=== PATIENT | male | born 1965 | race Caucasian/White ===

== ENCOUNTER 2025-03-23 12:49 | Emergency (ER) | payer OTHER, SELFPAY ==
--- NOTE | ~2025-03-23 | US_ITS ---
EXAMINATION: US venous doppler [facility] DATE: 03/23/2025 13:59 INDICATION: Left upper limb swelling at the hand TECHNIQUE: Grayscale images without and with compression and Doppler images of the left upper extremi ty veins were obtained. COMPARISON: None. FINDINGS: The left internal jugular vein, subclavian vein, axillary vein, brachial vein, basilic vein, cephalic vein, radial vein, and ulnar vein are patent. IMPRESSION: 1. Patent left upper extremity veins. No evidence of venous thrombosis. Reviewed, dictated and finalized at location A.
[2025-03-23 12:56] VITALS: BP 129/90; PULSE 93; RESP 18; TEMP 36.5; O2SAT 98
--- NOTE | 2025-03-23 13:25 | ED_ITS ---
HPI - Extremity Problem General Chief complaint: Extremity Problem,Nontraumatic Stated complaint: left hand swelling Time Seen by Provider: 03/23/25 12:56 History of Present Illness HPI Narrative: 59-year-old male presents to the emergency department for evaluation for left hand swelling. Patient does have some mild left hand urine edema and swelling of the left hand with no swelling of the remainder of the left upper extremity. Patient denies any falls or injuries. Patient does have 2 scrapes to the left hand. Patient states that he does take blood thinners for previous coronary artery disease but did not take few days for the past 2 days. Patient denies any prior history of DVT. Related Data Allergies Allergy/AdvReac Type Severity Reaction Status Date / Time No Known Allergies Allergy Verified 03/23/25 14:20 Review of Systems Review of Systems: All systems reviewed & are unremarkable except as noted in HPI and below Exam Narrative: APPEARANCE: Well appearing, no pain, no distress, well-nourished. HEAD: normocephalic, atraumatic. EYES: PERRLA/EOMI, conjunctivae clear. NOSE: Normal no drainage EARS:TMS clear with good light reflex. THROAT: Pharynx clear, no exudate. NECK: Supple. No adenopathy, no masses. RESPIRATORY: Airway patent, respirations nonlabored. Clear to auscultation bilaterally, no rales, rhonchi, wheezing. CARDIOVASCULAR: Regular rate and rhythm without murmurs rubs or gallops. ABDOMINAL: Soft, nontender, nondistended, normal bowel sounds MUSCULOSKELETAL: Left hand erythema and mild edema NEURO: Alert. Cranial nerves II through XII intact. Good gait. Good coordination SKIN: Warm, dry. Normal Color Course Vital Signs Vital signs: Vital Signs Temperature 97.7 F 03/23/25 12:56 Pulse Rate 93 03/23/25 12:56 Respiratory Rate 18 03/23/25 12:56 Blood Pressure 129/90 03/23/25 12:56 Pulse Oximetry 98 03/23/25 12:56 Oxygen Delivery Room Air 03/23/25 12:56 Temperature 97.7 F 03/23/25 12:56 Pulse Rate 83 03/23/25 14:30 Respiratory Rate 19 03/23/25 14:30 Blood Pressure 118/81 03/23/25 14:30 Pulse Oximetry 97 03/23/25 14:30 Oxygen Delivery Room Air 03/23/25 12:56 MDM - Extremity (Nontraumatic) MDM Narrative Medical decision making narrative: 59-year-old male presents emergency department for evaluation for left hand swelling. Ultrasound was negative for DVT. Patient does have some areas of skin injury and does have some mild erythema of the left hand, concern for possible cellulitis. Patient was started on antibiotics in the emergency department. All questions concerns were addressed patient was well-appearing at time of discharge. Differential Diagnosis Differential diagnosis: Likely cellulitis, superficial thrombophlebitis, deep vein thrombosis of lower extremity and other Imaging Data Radiologist's impression: Impressions Venous Doppler Study 03/23/25 14:03 IMPRESSION: 1. Patent left upper extremity veins. No evidence of venous thrombosis. Discharge Plan Discharge Clinical Impression: Cellulitis, Hand edema Patient Disposition: Home Condition: Stable Instructions: Antibiotic Form, Cellulitis (ED) Additional Instructions: Antibiotic as directed until completed. Have close follow-up with your primary care physician for a wound check. If you have any worsening symptoms and please call or return to the emergency department. Patient Language: South Korean Prescriptions: New cephalexin 500 mg capsule 500 mg PO Q12H 7 Days Qty: 14 0RF Follow-up/Referrals: UNKNOWN,DOCTOR [Primary Care Provider] -
--- OUTSIDE RECORDS SUMMARY | 2025-03-23 13:31 | XMS_ITS | Continuity of Care Document ---
Author Organization [facility] Address [address] [place] [address] Phone Care Team Providers Care Superintendent Custodian Janitor Name Role Phone Martin Davies MD Unavailable Unavailable Advance Directives Directive Yes / No Effective Date File Name No Information Encounters Encounter Description Practice Location Reason(s) For Visit Diagnoses Date Provider Providers Copied on Encounter [facility], [address], [place], [place], [id number], tel:[phone] [facility] No Information Keke Salazar. [address] [place] [address], [id number], . tel:[phone] Family History Family Member Type Diagnosis Age At Onset No Information Payers Payer name Insurance type Covered republican ID Authoriza tion(s) No Information Social History Type Description Quantity Date Captured Comments Sex Male Smoking Status No Information Chief Complaint And Reason For Visit No Information Reason For Referral Reason For Referral No Information History Of Present Illness Encounter Date Complaint History Of Prese nt Illness No Information Functional Status Date Functional Assessmen t No Information Instructions Date Instruction Additional Infor mation No Information Assessments Type Assessment Date No Information Patient Care Teams Name Effective Dates (start - stop) Status Members No Information
--- OUTSIDE RECORDS SUMMARY | 2025-03-23 13:32 | XMS_ITS | CONTINUITY OF CARE DOCUMENT ---
Author Name shadia reno Address Unknown Organization [facility] Address [address] [place] [address] Phone [phone] Care Team Providers Care Credit Representative Name Role Phone Vance Méndez MD Unavailable [phone] JEANETTE MCNEILL MD Unavailable [phone] JEANETTE MCNEILL MD Unavailable [phone] PROBLEMS Condition Status Date Provider Notes Tobacco use, quit active Josh Randle Fatigue active Josh Randle CHF active Josh Randle Insomnia active Vance Méndez MD Shortness of breath active Vance Méndez MD Dyslipidemia active Vance Méndez MD Cardiomyopathy active Vance Méndez MD Diabetes mellitus active Vance Méndez MD STEMI 08/2020 active Vance Méndez MD CAD S/P LCX/OM2 STENTS 08/2020 active Jennifer nder Jer HTN active Vance Méndez MD ENCOUNTERS Date Type Provider Location Encounter Diag nosis - In-person encounter Office Visit Timur Salcido MD [facility] Office - In-person encounter Office Visit Vance Méndez MD [facility] HTNCAD S/P LCX/OM2 STENTS 08/2020STEMI 08/2020Diabetes mellitusCardiomyopathyDyslipidemiaShortness of breathInsomniaCHFFatigueTobacco use, quit VITAL SIGNS Date Observation Value Provider Body Mass Index (Ratio) 21.29 kg/m2 Ustx n Loly MD blood pressure, diastolic 70 mm[Hg] Luis Dickersonford blood pressure, systolic 122 mm[Hg] Soheila Real respiratory rate E&M 18 /min Daniel Real blood pressure, resting Yes Alberto Real oxygen saturation, oximetry 98 % Aminta Real pulse rate 70 /min Aminta dobbins weight E&M 157 [lb_av] Aminta dobbins height E&M 72 [in_i] Aminta dobbins Body Mass Index (Ratio) 22.10 kg/m2 Erickson vázquez [facility] blood pressure, resting Yes Erickson gurpreet [facility] blood pressure, cuff size large Ke rri [facility] blood pressure, diastolic 70 mm[Hg] Ke rri Gruenenfelder blood pressure, systolic 110 mm[Hg] Gabino jose daniel Rodriguez oxygen saturation, oximetry 98 % Morena Rodriguez respiratory rate E&M 16 /min Morena cuevas pulse rate 97 /min Morena Austin er weight E&M 163 [lb_av] Morena Maria Me er height E&M 72 [in_i] Morena Grclaudettenenfe lder ALLERGIES No Known Drug Allergies RESULTS Date Observation Value Provider Reference Range Interpretation Location 5 hemoglobin A1C, blood, as % of total hemoglobin 9.5 % [facility] 5 LDL cholesterol, serum 52 mg/dL [facility] 6 eGFR if 87 mL/min/{1. 73_m2} [facility] >59 6 eGFR if not 75 mL/min/{1. 73_m2} [facility] >59 2020/11/2 6 creatinine, serum 1.11 mg/dL [facility] 0.76-1.27 HISTORY OF MEDICATION USE Medication Status Instructions Dates Provider Indications Com ments aspirin 81 mg tablet,delayed release (/EC) active TAKE 1 TABLET BY MOUTH EVERY DAY Denise Alexei clopidogrel 75 mg tablet active TAKE 1 TABLET BY MOUTH EVERY DAY Denise Linda carvedilol 3.125 mg tablet active TAKE 1 TABLET BY MOUTH EVERY DAY Denise Linda METOPROLOL TARTRATE 100 MG ORAL TABLET completed one tab the morning of the CT heart at 10:30AM on 09/27/20. Hold your Carvedilol evening of 09/26 & AM of 09/27/20 - Aminta Real LASIX 40 MG ORAL TABLET completed One tablet daily - Josh Randle ALDACTONE 25 MG ORAL TABLET completed ONE TAB. DAILY - Josh Randle FARXIGA 10 MG ORAL TABLET completed One tab by mouth daily - Josh [facility] Ambien 5 mg tablet active 1 tablet every night Jasson Styles lisinopril 2.5 mg tablet active 1 tablet once a day Morena Rodriguez Plavix 75 mg tablet completed 1 tablet once a day - Morena Rodriguez Coreg 3.125 mg tablet completed Take 1 once a day - Morena Rodriguez Lipitor 80 mg tablet active 1 tablet once a day Morena Rodriguez ASPIRIN 81 81 MG ORAL TABLET DELAYED RELEASE active 1 tablet by mouth once a day Morena Rodriguez Victoza 2-Darvin 0.6 mg/0.1 mL (18 mg/3 mL) pen injector active Inject 1.2 mg subcutaneously once a day Morena Rodriguez SOCIAL HISTORY Date Observation Value Provider social history E&M S moking History: Slim diamond is a former smoker. 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 [facility] social history reviewed E&M revi ewed - no changes required [facility] number of years as a smoker 30 a Morena Rodriguez smoking history, tot al pack/day 1.5 [facility] smoking, year quit 2012 Morena glover cigarette use yes Morena velazquez smoking status Former smoker Morena Stephan gutierrez FUNCTIONAL STATUS Date Observation Value Provider HRA, CV Assess/Plan, Angina (inactive) Management Plan continue current therapy Mansi Adames NP HRA, CV Assess/Plan, Angina (inactive) Management Plan continue current therapy [facility] FAMILY HISTORY Family Member Condition Mother Family History of Co ronary Artery Disease: Mother Family History of Hy pertension: Mother Family History of Hy perlipidemia: Mother Family History of Di abetes: Father Family History of Co ronary Artery Disease: Father Family History of Hy pertension: Father Family History of Hy perlipidemia: Father Family History of Di abetes: INSURANCE PROVIDERS Payer name Policy type / Coverage type [id number] ADVANCE DIRECTIVES Name Date DISCUSSED - NO DECISION MADE TREATMENT PLAN Date Name [facility] Follow up:At times he complains of feeling that he cannot breathe well and we will schedule PFT's. [facility] Follow up:He reports waking up at night and having difficult falling back asleep. We will obtain a home sleep study and he will try Ambien. [facility] Follow up:Pt had a STEMI in the beginning of August with stenting of the LCX and OM2 at [facility]. EF was 35%. We were not able to cannulate the RCA. Today he complains mainly of fatigue and tiredness. He was discharged from [facility] on Lasix, Spironolactone and Farxiga (due to elevated proBNP of 2854 at [facility]). BP today is 110/70 and we will discontinue Lasix, Spironolactone and Farxiga and continue his Lisinopril, Coreg and Victoza. We will obtain an echo to assess his EF. The following medications were removed from the medication list: Lasix 40 Mg Oral Tablet (Furosemide) ..... One tablet daily Aldactone 25 Mg Oral Tablet (Spironolactone) ..... One tab. daily His updated medication list for this problem includes: Lisinopril 2.5 Mg Oral Tablet (Lisinopril) ..... One tab. daily Coreg 3.125 Mg Oral Tablet (Carvedilol) ..... Take one pill a day [facility] Follow up:HgA1c: 9.5 (08/25/2020) The following medications were removed from the medication list: Farxiga 10 Mg Oral Tablet (Dapagliflozin propanediol) ..... One tab by mouth daily His updated medication list for this problem includes: Lisinopril 2.5 Mg Oral Tablet (Lisinopril) ..... One tab. daily Aspirin 81 81 Mg Oral Tablet Delayed Release (Aspirin) ..... One tab by mouth daily Victoza 18 Mg/3ml Subcutaneous Solution Pen-injector (Liraglutide) ..... Inject 1.2mg subcutaneously daily [facility] Follow up:Pt had a STEMI in the beginning of August with stenting of the LCX and OM2 at [facility]. EF was 35%. We were not able to cannulate the RCA. He continued to have chest pain and thus was transferred to [facility] for CT coronary angio, however CT chest/abdo with contrast was done instead. Today he complains mainly of fatigue and tiredness. Denies chest pain. He was discharged from [facility] on Lasix, Spironolactone and Farxiga (due to elevated proBNP of 2854 at [facility]). BP today is 110/70 and we will discontinue Lasix, Spironolactone and Farxiga and continue his Lisinopril, Coreg and Victoza. We will reschedule his CT coronary angiography to assess his RCA. We will obtain an echo to assess his EF. [facility] Follow up:LDL: 52 (08/25/2020) HDL: 28 (08/25/2020) TRI (08/25/2020) CHOL: 105 (08/25/2020) His updated medication list for this problem includes: Lipitor 80 Mg Oral Tablet (Atorvastatin calcium) ..... One tab. daily [facility] Follow up:He was discharged from [facility] on Lasix, Spironolactone and Farxiga (due to elevated proBNP of 2854 at [facility]). BP today is 110/70 and we will discontinue Lasix, Spironolactone and Farxiga and continue his Lisinopril, Coreg and Victoza. BP today: 110/70 The following medications were removed from the medication list: Lasix 40 Mg Oral Tablet (Furosemide) ..... One tablet daily Aldactone 25 Mg Oral Tablet (Spironolactone) ..... One tab. daily His updated medication list for this problem includes: Lisinopril 2.5 Mg Oral Tablet (Lisinopril) ..... One tab. daily Coreg 3.125 Mg Oral Tablet (Carvedilol) ..... Take one pill a day [facility] Follow up:Pt had a STEMI in the beginning of August with stenting of the LCX and OM2 at [facility]. EF was 35%. We were not able to cannulate the RCA. Today he complains mainly of fatigue and tiredness. Denies chest pain. We will obtain an echo to assess his EF. [facility] Follow up:Pt had a STEMI in the beginning of August with stenting of the LCX and OM2 at [facility]. EF was 35%. We were not able to cannulate the RCA. He continued to have chest pain and thus was transferred to [facility] for CT coronary angio, however CT chest/abdo with contrast was done instead. To limit his contrast exposure, stress test and echo were done at [facility] instead of a second CT. Today he complains mainly of fatigue and tiredness. Denies chest pain. We will reschedule his CT coronary angiography to assess his RCA. His updated medication list for this problem includes: Lisinopril 2.5 Mg Oral Tablet (Lisinopril) ..... One tab. daily Plavix 75 Mg Oral Tablet (Clopidogrel bisulfate) ..... One tab. daily Coreg 3.125 Mg Oral Tablet (Carvedilol) ..... Take one pill a day Aspirin 81 81 Mg Oral Tablet Delayed Release (Aspirin) ..... One tab by mouth daily Josh Randle Date Name Complete Echo Complete Echo Creatinine, Serum CT Angio Coronaries DLCO - 86397 FRC - 23631 FVC - 96044 Sleep Study Home Complete Echo HISTORY OF PROCEDURES Procedure Date Procedure Name Provider Procedure Notes S tatus FVC / MVV with [facility] hodilator - 84593 Vance Méndez MD completed BLOOD COUNT HEMOGLOBIN Vance Méndez MD completed FRC - 72402 Vance Méndez MD completed SpO2 w/o 6min walk/titration Vance Méndez MD completed DLCO - 78294 Vance éMndez MD complete d EKG Vance Méndez MD completed
--- OUTSIDE RECORDS SUMMARY | 2025-03-23 13:32 | XMS_ITS | Patient Health Record ---
Author Organization [facility] Address [address] [place] [id number] Care Team Providers Care Sleeping Car Service Attendant Name Role Phone JEANETTE MCNEILL Primary Care Provider Allergies No Known Allergies Reason For Referral No Information Medications Medication SIG (Take, Route, Frequency, Duration) Notes Start Date End Date Status Atorvastatin Calcium 20 MG 1 tablet every evening Orally Once a day for 90 days Active Tresiba FlexTouch 100 UNIT/ML inject 25 units Subcutaneous once a day for 90 days 06/12/2022 Active Clopidogrel Bisulfate 75 MG 1 tablet Orally Once a day Active Carvedilol 3.125 MG 1 tablet with food O rally Twice a day Active OneTouch Delica Lancets Fine use one lancet in vitro once a day for 100 days 06/06/2022 Active OneTouch Delica Plus [id number] - TESTS TWICE DAILY for 30 Act nagi metFORMIN HCl 500 MG 1 tablet with meals Orally Twice a day for 90 days 05/18/2021 Active Lisinopril 10 MG 1 tablet Orally Once a day for 90 days Active Aspirin EC 81 MG 1 tablet Orally Once a day Active OneTouch Ultra Test 1 In Vitro daily for 90 days 12/20/2017 Active BD Pen Needle Micro U/F 32G X 6 MM use 1 every day subcutaneously for 90 days Active OneTouch Ultra 2 w/Device as directed 12/20/2017 Not-Taking Immunizations Vaccine Route Administration Date Status Comme nts Influenza (split), 3 yrs and above IM Intramuscular 08/11/2015 Administered Pneumococcal polysaccharide PPV23 IM Intramuscular 08/11/2015 Administered Social History Tobacco use other than smoking: Question Answer Notes Are you an other tobacco user? No Problems Problem Type SNOMED Code ICD Code Onset Dates Problem Status W/U Status Risk Notes Problem Presbyopia (94700024) Presbyopia (H52.4) Active confirmed Problem Essential hypertension (96257952) Essential (primary) hypertension (I10) Active confirmed Problem Diabetic cataract associated with type II diabetes mellitus (790137654) Type 2 diabetes mellitus with diabetic cataract (E11.36) Active confirmed Problem Hyperglycemia due to type 2 diabetes mellitus (004291810859252) Type 2 diabetes mellitus with hyperglycemia (E11.65) Active confirmed Problem Posterior subcapsular polar senile cataract (3944277) Posterior subcapsular polar age-related cataract, bilateral (H25.043) Active confirmed Problem Nuclear senile cataract (276500870) Age-related nuclear cataract, bilateral (H25.13) Active confirmed Problem Hypermetropia (81221519) Hypermetropia, left eye (H52.02) Active confirmed Problem Myopia (90933473) Myopia, right eye (H52.11) Active confirmed Problem Regular astigmatism (04999862) Regular astigmatism, bilateral (H52.223) Active confirmed Problem 345233122 Fatty (change of ) liver, not elsewhere classified (K76.0) Active confirmed Problem Problem, abnormal examination (97728529) Encounter for general adult medical examination with abnormal findings (Z00.01) Active confirmed Problem Screening for malignant neoplasm of colon (863028244) Encounter for screening for malignant neoplasm of colon (Z12.11) Active confirmed Problem Dietary management surveillance (527886745) Dietary counseling and surveillance (Z71.3) Active confirmed Problem Noncompliance: dietary regimen (953232849) Patient's noncompliance with dietary regimen (Z91.11) Active confirmed Problem Noncompliance with medication regimen (finding) (661159082) Patient's other noncompliance with medication regimen (Z91.14) Active confirmed Problem Diabetes mellitus (24162519) Diabetes mellitus (E11.9) Active confirmed Problem Diverticular disease of colon (451158663) Diverticular disease (K57.90) Active confirmed Problem Postoperative ileus (208900307) Postoperative ileus (K91.3) Active confirmed Problem Hyponatremia (60510269) Hyponatremia (E87.1) Active confirmed Problem Incarcerated hernia (291809953) Incarcerated hernia (K46.0) Active confirmed Problem Small bowel obstruction (956127796) Small bowel obstruction (K56.69) Active confirmed Problem Anxiety disorder (399067482) Mixed anxiety depressive disorder (F41.8) Active confirmed Problem Major depressive disorder (880041532) Major depressive disorder (F32.9) Active confirmed Problem Paronychia (55741395) Paronychia (L03.019) Active confirmed Problem Anemia (591256442) Anemia (D64.9) Active confir med Problem Gastrointestinal hemorrhage (45714293) Lower gastrointestinal bleed (K92.2) Active confirmed Problem 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) Active confirmed Problem Diabetic peripheral neuropathy associated with type II diabetes mellitus (6632780993232) 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.42) Active confirmed Problem 38980202 CAD in [place] artery (I25.10) Active confirmed Problem 676634504 Right inguinal hernia (K40.90) Active confirmed Problem Impotence of organic origin (657741976) Impotence of organic origin (N52.9) Active confirmed Problem 233151080 History of MS (myocardial infarction) (I25.2) Active confirmed Problem Noncompliance with dietary regimen (507129001) Dietary noncompliance (Z91.11) Active confirmed Problem 696085499 Strain of right trapezius muscle (S46.811A) Active confirmed Problem 949903668 Impotence due to erectile dysfunction (N52.9) Active confirmed Plan Of Treatment Pending Test Test Name Order Date Colonoscopy 02/21/2017 Thyroid Panel With TSH 07/27/2019 Vitamin B12 and Folate 07/27/2019 Hemoglobin A1c 07/27/2019 CBC With Differential/Platelet 9 Microalbumin, Random Urine 07/27/2019 Lipid Panel-L 07/27/2019 Comp. Metabolic Panel (14) 07/27/2019 PSA Total+% Free 07/27/2019 Insurance Providers Payer Name Payer Address Payer Phone Subscriber Number Group Number Insured Name Patient Relationship to Insured Coverage Start Date Coverage End Date [facility] [address] [place], [place] [id number] TA MARIN Self - patient is the insured 0 Medical (General) History Medical History History ICD Code Diabetes mellitus - [facility] - 08/21/2021 - A1c 8.6 ; 05/15/2021 - A1c 10.4 ; 08/18/2020 - A1c 9.1 ; 12/20/2017 - A1c 7.3 ; A1c 10.1 08/20/15, A1c 5.6 04/19/15 (E11.9) Type 2 diabetes mellitus with hyperglyce stu (E11.65) Type 2 diabetes mellitus with diabetic c ataract (E11.36) Hyponatremia - [facility] - Sodium 138 08/20/15, Sodium 135 09/01/12 08/21/12 (E87.1) Fatty liver (CT scan on 07/22 11/01) - [facility] 08/12/12 - Bilirubin 0.3/Ca+ 9.3 08/20/15, Bilirubin 0.3/Ca+ 9.5 09/01/12 (K76.0) Diverticular disease - Colon scopy [facility] 12/13/03 (K57.90) Postoperative ileus - [facility] 08/21/12 (K91.3) Incarcerated hernia - [facility] 08/12/12 (K46.0) Small bowel obstruction, rec urrent - [facility] 08/10/12 (K56.69) Mixed anxiety depressive dis order - [facility] 08/10/12 (F41.8) Major depressive disorder - [facility] 08/10/12 (F32.9) Paronychia - [facility] [place] r 12/19/03 (L03.019) Anemia - [facility] 16/02 (D64.9) Lower gastrointestinal bleed - [facility] 12/19/03 (K92.2) Posterior subcapsular polar age-related cataract, bilateral - #18 [facility] 07/30/15 (H25.043) Age-related nuclear cataract , bilateral - #18 [facility] 07/30/15 (H25.13) Myopia, right eye - #[address] [facility] 07/30/15 (H52.11) Hypermetropia, left eye - #18 [facility] 07/30/15 (H52.02) Regular astigmatism, bilateral - #18 [facility] 07/30/15 (H52.223) Presbyopia - #18 [facility] 08/04 (H52.4) Essential (primary) hypertension (I10) Patient's other noncompliance with medic ation regimen (Z91.14) Patient's noncompliance with dietary reg imen (Z91.11) Surgical History Surgery Date(Month/Year) Ventral hernia repair with m esh and adhesiolysis for a bowel obstruction 08/11/12 Left hemicolectomy 12/15/2003 left catarct removal 08/2015 INGUINAL HERNIA REPAIR 01/2018 Hospitalization History Reason Date(Month/Year) STOMACHE PAIN 02/2017
--- OUTSIDE RECORDS SUMMARY | 2025-03-23 13:32 | XMS_ITS | Data Portability ---
Author Organization [facility] Address [address] [place] [address] Care Team Providers Care Shield Installer Name Role Phone DAYSI DEMARCO Primary Care Provider Unavail able Assessment Encounter Date Assessment Date Assessment LastModified by Organization Details LastModified Time 04/09/2024 04/09/2024 58 yo; PMHx of CAD, HTN, HLD, and T2DM; presenting for establishment of care. [email or web address] Not available 04/11/2024 11:37:58 11/02/2024 11/02/2024 59 yo; PMHx of CAD, HTN, HLD, and T2DM; presenting for chronic conditions and hospital f/u. [email or web address] Not available 11/02/2024 19:30:54 12/21/2024 12/21/2024 59 yo; PMHx of CAD, HTN, HLD, and T2DM; presenting for chronic conditions and hospital f/u. [email or web address] Not available 12/21/2024 09:09:00 Plan of Treatment Reminders Order Date Submit Date Provider Last Modified By Organization Details Last Modified Time Details Appointments None recorde d. Lab vitamin D, 25-hydr oxy, total, serum 2024 025 [facility], [address], [address], [place], [address], 10:15:32 cobalam in and folate panel, serum 2024 025 [facility], [address], [address], [place], [address], 03/04/202 5 10:15:31 ferriti n, serum or plasma 2024 025 [email or web address] [facility], [address], [address], [place], [address], 5 11:55:02 TIBC (total iron-bi nding capacit y), serum 2024 025 [email or web address] [facility], [address], [address], [place], [address], 5 11:55:02 transfe rrin, serum 2024 025 [email or web address] [facility], [address], [address], [place], [address], 11:55:02 HbA1c (hemogl obin A1c), blood 2024 025 [email or web address] In-Office Order, Internal Use Only DO Not Attach Compendium DO Not Attach Compendium, Do Not Delete/merge, [id number] 19:56:48 TSH, ultra-s ensitiv e, serum 2024 025 [email or web address] [facility], [address], [address], [place], [address], 5 09:05:42 CBC w/ auto diff 2024 025 [facility], [address], [address], [place], [address], 5 09:04:23 lipid panel, serum 2024 025 [email or web address] [facility], [address], [address], [place], [address], 09:04:38 CMP, serum or plasma 2024 025 [email or web address] [facility], [address], [address], [place], [address], 5 09:03:51 microal bumin/c reatini ne, mass ratio, urine 2024 025 [email or web address] [facility], [address], [address], [place], [address], 5 09:14:03 Referral gastroe nterolo gist referra l [address]24 [facility], [address] [facility], [place], [address], 09:40:38 Procedures None recorde d. Surgeries None recorde d. Imaging LDCT, chest, for lung cancer screeni ng 2024 [facility] Scheduling, [facility], [place], [address], 11:19:49 Medication Orders carvedi lol 3.125 mg tablet 2024 [facility], [address] [place], [address], 5 15:40:35 losarta n 25 mg tablet 2024 025 [facility], [address] [place], [address], 5 15:40:34 Jardian ce 25 mg tablet [address] [facility], [address] [place], [address], 5 23:01:35 atorvas tatin 80 mg tablet 2024 025 [facility], [address] [place] [address], [address], 15:40:33 sertral ine 50 mg tablet 2024 025 [facility], [address] [place] [address], [address], 15:40:34 atorvas tatin 80 mg tablet 2024 025 [facility], [address] [place] [address], [address], 19:56:55 metform in 500 mg tablet 2024 [facility], [address] [place] [address], [address], 19:56:58 Jardian ce 25 mg tablet 2024 [email or web address] [facility], [address] [place] [address], [address], 18:38:53 Lantus Solosta r U-100 Insulin 100 unit/mL (3 mL) subcuta neous pen 2024 [facility], [address] [place] [address], [address], 19:56:55 sertral ine 50 mg tablet 2024 025 [facility], [address] [place] [address], [address], 19:56:57 losarta n 25 mg tablet 2024 025 [email or web address] [facility], [address] [place] [address], [address], 03/03/202 5 15:40:09 carvedi lol 3.125 mg tablet 2024 025 [facility], [address] [place] [address], [address], 5 19:56:57 losarta n 25 mg tablet [email or web address] [place] [address] [facility], [address] [place] [address], [address], 5 15:39:04 atorvas tatin 80 mg tablet 2023 024 [facility], [address] [place] [address], [address], 4 17:03:33 metform in 500 mg tablet 2023 024 [facility], [address] [place] [address], [address], 4 17:03:32 Jardian ce 25 mg tablet 2023 024 [facility], [address] [place] [address], [address], 4 17:03:34 Lantus Solosta r U-100 Insulin 100 unit/mL (3 mL) subcuta neous pen 2023 024 [facility], [address] [place] [address], [address], 4 21:13:23 Alcohol Prep Pads 2023 024 [facility], [address] [place] [address], [address], 4 21:14:25 Blood Glucose Test strips 2023 024 [facility], [address] [place] [address], [address], 10:15:03 sertral ine 50 mg tablet 2023 024 [facility], [address] [facility], [place], [address], 21:12:58 Patient TargetsNo targets recorded. Patient Instructions Encounter Date Encounter Id Patient Instructions Last Modified By Organization Details Last Modified Time 04/09/2024 [id number] I was present an d available in the Family Medicine clinic to discuss the patient's care during the time of the appointment. All labs/imaging/cons ults/prescription s to be followed by the resident rendering services on day of encounter. I agree with the resident's assessment and plan as documented with the following addendum: None. Jez Bai Not available 04/14/2024 11:42:11 11/02/2024 [id number] Quitting Tobacco : Care Instructions [email or web address] Not available 11/02/2024 19:56:48 I was present an d available in the Family Medicine clinic to discuss the patient's care during the time of the appointment. All labs/imaging/cons ults/prescription s to be followed by the resident rendering services on day of encounter. I agree with the resident's assessment and plan as documented with the following addendum: [None] Jez Bai Not available 11/05/2024 18:38:53 12/21/2024 [id number] Quitting Tobacco : Care Instructions [email or web address] Not available 12/21/2024 15:40:26 I was present an d available in the Family Medicine clinic to discuss the patient's care during the time of the appointment. All labs/imaging/cons ults/prescription s to be followed by the resident rendering services on day of encounter. I agree with the resident's assessment and plan as documented with the following addendum: None. Jez Bai Not available 12/24/2024 11:32:25 Reason for Referral Cloth Cutting Inspector Referral for Screening for malignant neoplasm of colon colon cancer screening colonoscopy Referring Physician: Daysi Demarco, Cloth Handler, Encounter Date: 11/02/2024 Results Created Date Observation Date Name Description Value Unit Range Abnormal Flag Note LastModifiedBy Organization Detail LastModifiedTime 03/31/20 24 03/31/2024 Gluco se [Mass /volu me] in Blood by Autom ated test strip glucose [mass/volume ] in blood by automated test strip 314 mg/dL low: 70mg/d Lhigh: 99mg/d L high GLUCO SE POC 314 (H) 70 - 99 mg/dL 03/31 8:15 PM CDT [facility] Not [facility] Not Available 12/08/2024 10:29:03/31/20 24 03/31/2024 Gluco se [Mass /volu me] in Blood by Autom ated test strip interpretati on and review of laboratory results ABNORM AL Not Available Not Available 10:29:03/31/20 24 03/31/2024 Proth rombi n time (PT) prothrombin time (PT) 13.6 text: 10.2 - 12.9 sec high PROTI ME 13.6 (H) 10.2 - 12.9 SEC 03/31 6:02 PM CDT [facility] Not [facility] Not Available 12/08/2024 10:29:03/31/20 24 03/31/2024 Proth rombi n time (PT) INR in platelet poor plasma by coagulation assay 1.2 INR 1.2 03/31 6:02 PM CDT [facility] Not [facility] Not Available 12/08/2024 10:29:03/31/20 24 03/31/2024 Proth rombi n time (PT) interpretati on and review of laboratory results ABNORM AL Not Available Not Available 10:29:03/31/20 24 03/31/2024 Basic metab olic 2000 panel - Serum or Plasm a glucose [mass/volume ] in serum or plasma 298 text: 70 - 99 mg/dL high GLUCO SE 298 (H) 70 - 99 MG/DL 03/31 6:12 PM CDT [facility] Not Available Not Available 12/08/2024 10:29:03/31/20 24 03/31/2024 Basic metab olic 1999 panel - Serum or Plasm a urea nitrogen [mass/volume ] in serum or plasma 6 text: 7 - 18 mg/dL low BUN 6 (L) 7 - 18 MG/DL 03/31 6:12 PM CDT [facility] Not Available Not Available 12/08/2024 10:29:09 03/31/20 24 03/31/2024 Basic metab olic 1999 panel - Serum or Plasm a creatinine [mass/volume ] in serum or plasma 0.83 text: 0.7 - 1.3 mg/dL CREAT ININE S/P/B 0.83 0.7 - 1.3 MG/DL 03/31 6:12 PM CDT [facility] Not Available Not Available 12/08/2024 10:29:09 03/31/20 24 03/31/2024 Basic metab olic 1999 panel - Serum or Plasm a sodium [moles/volum e] in serum or plasma 127 text: 136 - 145 mmol/L low SODIU M S/P/B 127 (L) 136 - 145 MMOL/ L 03/31 6:12 PM CDT [facility] Not Available Not Available 12/08/2024 10:29:09 03/31/20 24 03/31/2024 Basic metab olic 1999 panel - Serum or Plasm a potassium [moles/volum e] in serum or plasma 3.2 text: 3.5 - 5.1 mmol/L low POTAS SIUM S/P/B 3.2 (L) 3.5 - 5.1 MMOL/ L 03/31 6:12 PM CDT [facility] Not Available Not Available 12/08/2024 10:29:09 03/31/20 24 03/31/2024 Basic metab olic 1999 panel - Serum or Plasm a chloride [moles/volum e] in serum or plasma 97 text: 100 - 108 mmol/L low CHLOR KATERIN S/P/B 97 (L) 100 - 108 MMOL/ L 03/31 6:12 PM CDT [facility] Not Available Not Available 12/08/2024 10:29:03/31/20 24 03/31/2024 Basic metab olic 1999 panel - Serum or Plasm a carbon dioxide, total [moles/volum e] in serum or plasma 22.7 text: 21 - 32 mmol/L CO2 22.7 21 - 32 MMOL/ L 03/31 6:12 PM CDT [facility] Not Available Not Available 12/08/2024 10:29:03/31/20 24 03/31/2024 Basic metab olic 1999 panel - Serum or Plasm a calcium [mass/volume ] in serum or plasma 7.8 text: 8.5 - 10.1 mg/dL low CALCI UM S/P/B 7.8 (L) 8.5 - 10.1 MG/DL 03/31 6:12 PM CDT [facility] Not Available Not Available 12/08/2024 10:29:03/31/20 24 03/31/2024 Basic metab olic 1999 panel - Serum or Plasm a anion gap in serum or plasma 7.3 text: 5 - 15 mmol/L ANION GAP 7.3 5 - 15 MMOL/ L 03/31 6:12 PM CDT [facility] Not Available Not Available 12/08/2024 10:29:03/31/20 24 03/31/2024 Basic metab olic 1999 panel - Serum or Plasm a urea nitrogen/cre atinine [mass ratio] in serum or plasma 7.2 low: 6high: 26 BUN CREAT ININE RATIO 7.2 6 - 26 03/31 6:12 PM CDT [facility] Not Available Not Available 12/08/2024 10:29:03/31/20 24 03/31/2024 Basic metab olic 2000 panel - Serum or Plasm a glomerular filtration rate/1.73 sq M.predicted [volume rate/area] in serum, plasma or blood by creatinine-b ased formula (CKD-epi 2020) text: >90 mL/min /1.73 M2 GFR ESTIM ATE >90 >90 ML/WI N/1.7 3 M2 03/31 6:12 PM CDT [facility] Not Available Not Available 12/08/2024 10:29:03/31/20 24 03/31/2024 Basic metab olic 2000 panel - Serum or Plasm a interpretati on and review of laboratory results ABNORM AL Not Available Not Available 10:29:03/31/20 24 03/31/2024 CBC W Auto Diffe renti al panel - Blood leukocytes [#/volume] in blood by automated count 7.28 text: 4.5 - 11.0 x10'3/ uL WBC 7.28 4.5 - 11.0 x10'3 /uL 03/31 6:30 PM CDT [facility] Not Available Not Available 12/08/2024 10:29:03/31/20 24 03/31/2024 CBC W Auto Diffe renti al panel - Blood erythrocytes [#/volume] in blood by automated count 4.51 text: 4.70 - 6.10 x10'6/ uL low RBC 4.51 (L) 4.70 - 6.10 x10'6 /uL 03/31 6:30 PM CDT [facility] Not Available Not Available 12/08/2024 10:29:03/31/20 24 03/31/2024 CBC W Auto Diffe renti al panel - Blood hemoglobin [mass/volume ] in blood 13.6 text: 14.0 - 18.0 g/dL low HGB 13.6 (L) 14.0 - 18.0 G/DL 03/31 6:30 PM CDT [facility] Not Available Not Available 12/08/2024 10:29:03/31/20 24 03/31/2024 CBC W Auto Diffe renti al panel - Blood hematocrit [volume fraction] of blood 39.1 % low: 43%hig h: 54% low HCT 39.1 (L) 43.0 - 54.0 % 03/31 6:30 PM CDT [facility] Not Available Not Available 12/08/2024 10:29:03/31/20 24 03/31/2024 CBC W Auto Diffe renti al panel - Blood MCV [entitic volume] 86.7 text: 80.0 - 94.0 fL MCV 86.7 80.0 - 94.0 FL 03/31 6:30 PM CDT [facility] Not Available Not Available 12/08/2024 10:29:09 03/31/20 24 03/31/2024 CBC W Auto Diffe renti al panel - Blood MCH [entitic mass] 30.2 pg low: 27pghi gh: 31pg MCH 30.2 27.0 - 31.0 PG 03/31 6:30 PM CDT [facility] Not Available Not Available 12/08/2024 10:29:03/31/20 24 03/31/2024 CBC W Auto Diffe renti al panel - Blood MCHC [mass/volume ] 34.8 text: 32.0 - 36.0 g/dL MCHC 34.8 32.0 - 36.0 G/DL 03/31 6:30 PM CDT [facility] Not Available Not Available 12/08/2024 10:29:03/31/20 24 03/31/2024 CBC W Auto Diffe renti al panel - Blood erythrocyte distribution width [entitic volume] by automated count 11.9 % low: 11.5%h igh: 14.5% RDW 11.9 11.5 - 14.5 % 03/31 6:30 PM CDT [facility] Not Available Not Available 12/08/2024 10:29:09 03/31/20 24 03/31/2024 CBC W Auto Diffe renti al panel - Blood platelets [#/volume] in blood 190 text: 130 - 400 x10'3/ uL PLT 190 130 - 400 x10'3 /uL 03/31 6:30 PM CDT [facility] Not Available Not Available 12/08/2024 10:29:09 03/31/20 24 03/31/2024 CBC W Auto Diffe renti al panel - Blood platelet mean volume [entitic volume] in blood 9.6 text: 9.3 - 12.2 fL MPV 9.6 9.3 - 12.2 FL 03/31 6:30 PM CDT [facility] Not Available Not Available 12/08/2024 10:29:09 03/31/20 24 03/31/2024 CBC W Auto Diffe renti al panel - Blood differential cell count method - blood AUTOMA TOSHIA DIFFER ENTIAL DIFFE RENTI AL TYPE AUTOM ATED DIFFE RENTI AL 03/31 6:30 PM CDT [facility] Not Available Not Available 12/08/2024 10:29:09 03/31/20 24 03/31/2024 CBC W Auto Diffe renti al panel - Blood neutrophils/ 100 leukocytes in blood by automated count 74.6 % NEUTR OPHIL S % 74.6 % 03/31 6:30 PM CDT [facility] Not Available Not Available 12/08/2024 10:29:09 03/31/20 24 03/31/2024 CBC W Auto Diffe renti al panel - Blood lymphocytes/ 100 leukocytes in blood by automated count 20.3 % LYMPH OCYTE S % 20.3 % 03/31 6:30 PM CDT [facility] Not Available Not Available 12/08/2024 10:29:09 03/31/20 24 03/31/2024 CBC W Auto Diffe renti al panel - Blood monocytes/10 0 leukocytes in blood by automated count 3.8 % MONOC YTES % 3.8 % 03/31 6:30 PM CDT [facility] Not Available Not Available 12/08/2024 10:29:09 03/31/20 24 03/31/2024 CBC W Auto Diffe renti al panel - Blood eosinophils/ 100 leukocytes in blood by automated count 0.5 % EOSIN OPHIL S 0.5 % 03/31 6:30 PM CDT [facility] Not Available Not Available 12/08/2024 10:29:09 03/31/20 24 03/31/2024 CBC W Auto Diffe renti al panel - Blood basophils/10 0 leukocytes in blood by automated count 0.4 % BASOP HILS 0.4 % 03/31 6:30 PM CDT [facility] Not Available Not Available 12/08/2024 10:29:09 03/31/20 24 03/31/2024 CBC W Auto Diffe renti al panel - Blood immature granulocytes /100 leukocytes in blood by automated count 0.4 % IMMAT URE GRANS % 0.4 % 03/31 6:30 PM CDT [facility] Not Available Not Available 12/08/2024 10:29:09 03/31/20 24 03/31/2024 CBC W Auto Diffe renti al panel - Blood neutrophils [#/volume] in blood 5.42 text: 1.80 - 7.70 x10'3/ uL ABS. NEUTR OPHIL S 5.42 1.80 - 7.70 x10'3 /uL 03/31 6:30 PM CDT [facility] Not Available Not Available 12/08/2024 10:29:09 03/31/20 24 03/31/2024 CBC W Auto Diffe renti al panel - Blood lymphocytes [#/volume] in blood 1.48 text: 1.00 - 4.80 x10'3/ uL ABS. LYMPH OCYTE S 1.48 1.00 - 4.80 x10'3 /uL 03/31 6:30 PM CDT [facility] Not Available Not Available 12/08/2024 10:29:09 03/31/20 24 03/31/2024 CBC W Auto Diffe renti al panel - Blood monocytes [#/volume] in blood 0.28 text: 0.30 - 0.82 x10'3/ uL low ABS. MONOC YTES 0.28 (L) 0.30 - 0.82 x10'3 /uL 03/31 6:30 PM CDT [facility] Not Available Not Available 12/08/2024 10:29:09 03/31/20 24 03/31/2024 CBC W Auto Diffe renti al panel - Blood eosinophils [#/volume] in blood 0.04 text: 0.04 - 0.54 x10'3/ uL ABS. EOSIN OPHIL S 0.04 0.04 - 0.54 x10'3 /uL 03/31 6:30 PM CDT [facility] Not Available Not Available 12/08/2024 10:29:03/31/20 24 03/31/2024 CBC W Auto Diffe renti al panel - Blood basophils [#/volume] in blood 0.03 text: 0.01 - 0.08 x10'3/ uL ABS. BASOP HILS 0.03 0.01 - 0.08 x10'3 /uL 03/31 6:30 PM CDT [facility] Not Available Not Available 12/08/2024 10:29:03/31/20 24 03/31/2024 CBC W Auto Diffe renti al panel - Blood immature granulocytes [#/volume] in blood 0.03 text: 0.00 - 0.49 x10'3/ uL ABS. IMMAT URE GRANU LOCYT ES 0.03 0.00 - 0.49 x10'3 /uL 03/31 6:30 PM CDT [facility] Not Available Not Available 12/08/2024 10:29:03/31/20 24 03/31/2024 CBC W Auto Diffe renti al panel - Blood interpretati on and review of laboratory results ABNORM AL Not Available Not Available 10:29:03/31/20 24 03/31/2024 Activ ated clott ing time (ACT) of Blood by Coagu latio n assay activated clotting time (act) of blood by coagulation assay 294 text: 74 - 125 sec high ACTIV ATED CLOTT ING TIME (ACT) 294 (H) 74 - 125 SEC 03/31 6:07 PM CDT [facility] Not Available Not Available 12/08/2024 10:29:09 03/31/20 24 03/31/2024 Activ ated clott ing time (ACT) of Blood by [place]agu latio n assay tech code 811081 TECH CODE 523,6 96 03/31 6:07 PM CDT [facility] Not Available Not Available 12/08/2024 10:29:09 03/31/20 24 03/31/2024 Activ ated clott ing time (ACT) of Blood by Coagu latio n assay interpretati on and review of laboratory results ABNORM AL Not Available Not Available 10:29:09 03/31/20 24 03/31/2024 Compr ehens gaby metab olic 1999 panel - Serum or Plasm a glucose [mass/volume ] in serum or plasma 297 text: 70 - 99 mg/dL high GLUCO SE 297 (H) 70 - 99 MG/DL 03/31 5:37 PM CDT [facility] Not Available Not Available 12/08/2024 10:29:09 03/31/20 24 03/31/2024 Compr ehens gaby metab olic 1999 panel - Serum or Plasm a urea nitrogen [mass/volume ] in serum or plasma 6 text: 7 - 18 mg/dL low BUN 6 (L) 7 - 18 MG/DL 03/31 5:37 PM CDT [facility] Not Available Not Available 12/08/2024 10:29:09 03/31/20 24 03/31/2024 Compr ehens gaby metab olic 1999 panel - Serum or Plasm a creatinine [mass/volume ] in serum or plasma 1.24 text: 0.7 - 1.3 mg/dL CREAT ININE S/P/B 1.24 0.7 - 1.3 MG/DL 03/31 5:37 PM CDT [facility] Not Available Not Available 12/08/2024 10:29:09 03/31/20 24 03/31/2024 Compr ehens gaby metab olic 1999 panel - Serum or Plasm a sodium [moles/volum e] in serum or plasma 135 text: 136 - 145 mmol/L low SODIU M S/P/B 135 (L) 136 - 145 MMOL/ L 03/31 5:37 PM CDT [facility] Not Available Not Available 12/08/2024 10:29:09 03/31/20 24 03/31/2024 Compr ehens gaby metab olic 2000 panel - Serum or Plasm a potassium [moles/volum e] in serum or plasma 3.8 text: 3.5 - 5.1 mmol/L POTAS SIUM S/P/B 3.8 3.5 - 5.1 MMOL/ L 03/31 5:37 PM CDT [facility] Not Available Not Available 12/08/2024 10:29:09 03/31/20 24 03/31/2024 Compr ehens gaby metab olic 2000 panel - Serum or Plasm a chloride [moles/volum e] in serum or plasma 101 text: 100 - 108 mmol/L CHLOR KATERIN S/P/B 101 100 - 108 MMOL/ L 03/31 5:37 PM CDT [facility] Not Available Not Available 12/08/2024 10:29:09 03/31/20 24 03/31/2024 Compr ehens gaby metab olic 2000 panel - Serum or Plasm a carbon dioxide, total [moles/volum e] in serum or plasma 24.6 text: 21 - 32 mmol/L CO2 24.6 21 - 32 MMOL/ L 03/31 5:37 PM CDT [facility] Not Available Not Available 12/08/2024 10:29:09 03/31/20 24 03/31/2024 Compr ehens gaby metab olic 2000 panel - Serum or Plasm a calcium [mass/volume ] in serum or plasma 9.5 text: 8.5 - 10.1 mg/dL CALCI UM S/P/B 9.5 8.5 - 10.1 MG/DL 03/31 5:37 PM CDT [facility] Not Available Not Available 12/08/2024 10:29:09 03/31/20 24 03/31/2024 Compr ehens gaby metab olic 2000 panel - Serum or Plasm a bilirubin.to doni [mass/volume ] in serum or plasma 0.7 text: 0.2 - 1.2 mg/dL BILIR UBIN TOTAL S/P/B 0.7 0.2 - 1.2 MG/DL 03/31 5:37 PM CDT [facility] Not Available Not Available 12/08/2024 10:29:09 03/31/20 24 03/31/2024 Compr ehens gaby metab olic 2000 panel - Serum or Plasm a protein [mass/volume ] in serum or plasma 8.3 text: 6.4 - 8.2 g/dL high TOTAL PROTE IN S/P/B 8.3 (H) 6.4 - 8.2 G/DL 03/31 5:37 PM CDT [facility] Not Available Not Available 12/08/2024 10:29:09 03/31/20 24 03/31/2024 Compr ehens gaby metab olic 2000 panel - Serum or Plasm a albumin [mass/volume ] in serum or plasma 3.8 text: 3.4 - 5.0 g/dL ALBUM IN S/P/B 3.8 3.4 - 5.0 G/DL 03/31 5:37 PM CDT [facility] Not Available Not Available 12/08/2024 10:29:09 03/31/20 24 03/31/2024 Compr ehens gaby metab olic 2000 panel - Serum or Plasm a aspartate aminotransfe rase [enzymatic activity/vol ume] in serum or plasma 12 U/L low: 15U/Lh igh: 37U/L low AST 12 (L) 15 - 37 U/L 03/31 5:37 PM CDT [facility] Not Available Not Available 12/08/2024 10:29:09 03/31/20 24 03/31/2024 Compr ehens gaby metab olic 1999 panel - Serum or Plasm a alanine aminotransfe rase [enzymatic activity/vol ume] in serum or plasma 16 U/L low: 16U/Lh igh: 60U/L ALT 16 16 - 60 U/L 03/31 5:37 PM CDT [facility] Not Available Not Available 12/08/2024 10:29:09 03/31/20 24 03/31/2024 Compr ehens gaby metab olic 1999 panel - Serum or Plasm a alkaline phosphatase [enzymatic activity/vol ume] in serum or plasma 105 U/L low: 50U/Lh igh: 136U/L ALKAL INE PHOSP HATAS E S/P/B 105 50 - 136 U/L 03/31 5:37 PM CDT [facility] Not Available Not Available 12/08/2024 10:29:09 03/31/20 24 03/31/2024 Compr ehens gaby metab olic 1999 panel - Serum or Plasm a anion gap in serum or plasma 9.4 text: 5 - 15 mmol/L ANION GAP 9.4 5 - 15 MMOL/ L 03/31 5:37 PM CDT [facility] Not Available Not Available 12/08/2024 10:29:09 03/31/20 24 03/31/2024 Compr ehens gaby metab olic 1999 panel - Serum or Plasm a urea nitrogen/cre atinine [mass ratio] in serum or plasma 4.8 low: 6high: 26 low BUN CREAT ININE RATIO 4.8 (L) 6 - 26 03/31 5:37 PM CDT [facility] Not Available Not Available 12/08/2024 10:29:09 03/31/20 24 03/31/2024 Compr ehens gaby metab olic 1999 panel - Serum or Plasm a albumin/glob ulin [mass ratio] in serum or plasma 0.8 text: 1.0 - 2.0 ratio low A/G RATIO 0.8 (L) 1.0 - 2.0 RATIO 03/31 5:37 PM CDT [facility] Not Available Not Available 12/08/2024 10:29:09 03/31/20 24 03/31/2024 Compr ehens gaby metab olic 2000 panel - Serum or Plasm a glomerular filtration rate/1.73 sq M.predicted [volume rate/area] in serum, plasma or blood by creatinine-b ased formula (CKD-epi 2020) 67 text: >90 mL/min /1.73 M2 low GFR ESTIM ATE 67 (L) >90 ML/WI N/1.7 3 M2 03/31 5:37 PM CDT [facility] Not Available Not Available 12/08/2024 10:29:09 03/31/20 24 03/31/2024 Compr ehens gaby metab olic 2000 panel - Serum or Plasm a interpretati on and review of laboratory results ABNORM AL Not Available Not Available 10:29:09 03/31/20 24 03/31/2024 CBC W Auto Diffe renti al panel - Blood leukocytes [#/volume] in blood by automated count 9.78 text: 4.5 - 11.0 x10'3/ uL WBC 9.78 4.5 - 11.0 x10'3 /uL 03/31 4:56 PM CDT [facility] Not Available Not Available 12/08/2024 10:29:08 03/31/20 24 03/31/2024 CBC W Auto Diffe renti al panel - Blood erythrocytes [#/volume] in blood by automated count 5.72 text: 4.70 - 6.10 x10'6/ uL RBC 5.72 4.70 - 6.10 x10'6 /uL 03/31 4:56 PM CDT [facility] Not Available Not Available 12/08/2024 10:29:08 03/31/20 24 03/31/2024 CBC W Auto Diffe renti al panel - Blood hemoglobin [mass/volume ] in blood 16.9 text: 14.0 - 18.0 g/dL HGB 16.9 14.0 - 18.0 G/DL 03/31 4:56 PM CDT [facility] Not Available Not Available 12/08/2024 10:29:03/31/20 24 03/31/2024 CBC W Auto Diffe renti al panel - Blood hematocrit [volume fraction] of blood 49.1 % low: 43%hig h: 54% HCT 49.1 43.0 - 54.0 % 03/31 4:56 PM CDT [facility] Not Available Not Available 12/08/2024 10:29:08 03/31/20 24 03/31/2024 CBC W Auto Diffe renti al panel - Blood MCV [entitic volume] 85.8 text: 80.0 - 94.0 fL MCV 85.8 80.0 - 94.0 FL 03/31 4:56 PM CDT [facility] Not Available Not Available 12/08/2024 10:29:03/31/20 24 03/31/2024 CBC W Auto Diffe renti al panel - Blood MCH [entitic mass] 29.5 pg low: 27pghi gh: 31pg MCH 29.5 27.0 - 31.0 PG 03/31 4:56 PM CDT [facility] Not Available Not Available 12/08/2024 10:29:08 03/31/20 24 03/31/2024 CBC W Auto Diffe renti al panel - Blood MCHC [mass/volume ] 34.4 text: 32.0 - 36.0 g/dL MCHC 34.4 32.0 - 36.0 G/DL 03/31 4:56 PM CDT [facility] Not Available Not Available 12/08/2024 10:29:08 03/31/20 24 03/31/2024 CBC W Auto Diffe renti al panel - Blood erythrocyte distribution width [entitic volume] by automated count 12 % low: 11.5%h igh: 14.5% RDW 12.0 11.5 - 14.5 % 03/31 4:56 PM CDT [facility] Not Available Not Available 12/08/2024 10:29:08 03/31/20 24 03/31/2024 CBC W Auto Diffe renti al panel - Blood platelets [#/volume] in blood 275 text: 130 - 400 x10'3/ uL PLT 275 130 - 400 x10'3 /uL 03/31 4:56 PM CDT [facility] Not Available Not Available 12/08/2024 10:29:08 03/31/20 24 03/31/2024 CBC W Auto Diffe renti al panel - Blood platelet mean volume [entitic volume] in blood 9.1 text: 9.3 - 12.2 fL low MPV 9.1 (L) 9.3 - 12.2 FL 03/31 4:56 PM CDT [facility] Not Available Not Available 12/08/2024 10:29:08 03/31/20 24 03/31/2024 CBC W Auto Diffe renti al panel - Blood differential cell count method - blood AUTOMA TOSHIA DIFFER ENTIAL DIFFE RENTI AL TYPE AUTOM ATED DIFFE RENTI AL 03/31 4:56 PM CDT [facility] Not Available Not Available 12/08/2024 10:29:08 03/31/20 24 03/31/2024 CBC W Auto Diffe renti al panel - Blood neutrophils/ 100 leukocytes in blood by automated count 67.7 % NEUTR OPHIL S % 67.7 % 03/31 4:56 PM CDT [facility] Not Available Not Available 12/08/2024 10:29:08 03/31/20 24 03/31/2024 CBC W Auto Diffe renti al panel - Blood lymphocytes/ 100 leukocytes in blood by automated count 25.8 % LYMPH OCYTE S % 25.8 % 03/31 4:56 PM CDT [facility] Not Available Not Available 12/08/2024 10:29:08 03/31/20 24 03/31/2024 CBC W Auto Diffe renti al panel - Blood monocytes/10 0 leukocytes in blood by automated count 5.1 % MONOC YTES % 5.1 % 03/31 4:56 PM CDT [facility] Not Available Not Available 12/08/2024 10:29:08 03/31/20 24 03/31/2024 CBC W Auto Diffe renti al panel - Blood eosinophils/ 100 leukocytes in blood by automated count 0.6 % EOSIN OPHIL S 0.6 % 03/31 4:56 PM CDT [facility] Not Available Not Available 12/08/2024 10:29:08 03/31/20 24 03/31/2024 CBC W Auto Diffe renti al panel - Blood basophils/10 0 leukocytes in blood by automated count 0.4 % BASOP HILS 0.4 % 03/31 4:56 PM CDT [facility] Not Available Not Available 12/08/2024 10:29:08 03/31/20 24 03/31/2024 CBC W Auto Diffe renti al panel - Blood immature granulocytes /100 leukocytes in blood by automated count 0.4 % IMMAT URE GRANS % 0.4 % 03/31 4:56 PM CDT [facility] Not Available Not Available 12/08/2024 10:29:08 03/31/20 24 03/31/2024 CBC W Auto Diffe renti al panel - Blood neutrophils [#/volume] in blood 6.62 text: 1.80 - 7.70 x10'3/ uL ABS. NEUTR OPHIL S 6.62 1.80 - 7.70 x10'3 /uL 03/31 4:56 PM CDT [facility] Not Available Not Available 12/08/2024 10:29:08 03/31/20 24 03/31/2024 CBC W Auto Diffe renti al panel - Blood lymphocytes [#/volume] in blood 2.52 text: 1.00 - 4.80 x10'3/ uL ABS. LYMPH OCYTE S 2.52 1.00 - 4.80 x10'3 /uL 03/31 4:56 PM CDT [facility] Not Available Not Available 12/08/2024 10:29:08 03/31/20 24 03/31/2024 CBC W Auto Diffe renti al panel - Blood monocytes [#/volume] in blood 0.5 text: 0.30 - 0.82 x10'3/ uL ABS. MONOC YTES 0.50 0.30 - 0.82 x10'3 /uL 03/31 4:56 PM CDT [facility] Not Available Not Available 12/08/2024 10:29:08 03/31/20 24 03/31/2024 CBC W Auto Diffe renti al panel - Blood eosinophils [#/volume] in blood 0.06 text: 0.04 - 0.54 x10'3/ uL ABS. EOSIN OPHIL S 0.06 0.04 - 0.54 x10'3 /uL 03/31 4:56 PM CDT [facility] Not Available Not Available 12/08/2024 10:29:08 03/31/20 24 03/31/2024 CBC W Auto Diffe renti al panel - Blood basophils [#/volume] in blood 0.04 text: 0.01 - 0.08 x10'3/ uL ABS. BASOP HILS 0.04 0.01 - 0.08 x10'3 /uL 03/31 4:56 PM CDT [facility] Not Available Not Available 12/08/2024 10:29:08 03/31/20 24 03/31/2024 CBC W Auto Diffe renti al panel - Blood immature granulocytes [#/volume] in blood 0.04 text: 0.00 - 0.49 x10'3/ uL ABS. IMMAT URE GRANU LOCYT ES 0.04 0.00 - 0.49 x10'3 /uL 03/31 4:56 PM CDT [facility] Not Available Not Available 12/08/2024 10:29:08 03/31/20 24 03/31/2024 CBC W Auto Diffe renti al panel - Blood interpretati on and review of laboratory results ABNORM AL Not Available Not Available 10:29:08 04/01/20 24 04/01/2024 Gluco se [Mass /volu me] in Blood by Autom ated test strip glucose [mass/volume ] in blood by automated test strip 197 mg/dL low: 70mg/d Lhigh: 99mg/d L high GLUCO SE POC 197 (H) 70 - 99 mg/dL 04/01 8:27 PM CDT [facility] Not Available Not Available 12/08/2024 10:29:10 04/01/20 24 04/01/2024 Gluco se [Mass /volu me] in Blood by Autom ated test strip interpretati on and review of laboratory results ABNORM AL Not Available Not Available 10:29:10 04/01/20 24 04/01/2024 Gluco se [Mass /volu me] in Blood by Autom ated test strip glucose [mass/volume ] in blood by automated test strip 161 mg/dL low: 70mg/d Lhigh: 99mg/d L high GLUCO SE POC 161 (H) 70 - 99 mg/dL 04/01 3:30 PM CDT [facility] Not Available Not Available 12/08/2024 10:29:10 04/01/20 24 04/01/2024 Gluco se [Mass /volu me] in Blood by Autom ated test strip interpretati on and review of laboratory results ABNORM AL Not Available Not Available 10:29:10 04/01/20 24 04/01/2024 Gluco se [Mass /volu me] in Blood by Autom ated test strip glucose [mass/volume ] in blood by automated test strip 263 mg/dL low: 70mg/d Lhigh: 99mg/d L high GLUCO SE POC 263 (H) 70 - 99 mg/dL 04/01 12:42 PM CDT [facility] Not Available Not Available 12/08/2024 10:29:10 04/01/20 24 04/01/2024 Gluco se [Mass /volu me] in Blood by Autom ated test strip interpretati on and review of laboratory results ABNORM AL Not Available Not Available 10:29:10 04/01/20 24 04/01/2024 Basic metab olic 2000 panel - Serum or Plasm a glucose [mass/volume ] in serum or plasma 200 text: 70 - 99 mg/dL high GLUCO SE 200 (H) 70 - 99 MG/DL 04/01 7:49 AM CDT [facility] Not Available Not Available 12/08/2024 10:29:10 04/01/20 24 04/01/2024 Basic metab olic 2000 panel - Serum or Plasm a urea nitrogen [mass/volume ] in serum or plasma 11 text: 7 - 18 mg/dL BUN 11 7 - 18 MG/DL 04/01 7:49 AM CDT [facility] Not Available Not Available 12/08/2024 10:29:10 04/01/20 24 04/01/2024 Basic metab olic 2000 panel - Serum or Plasm a creatinine [mass/volume ] in serum or plasma 0.86 text: 0.7 - 1.3 mg/dL CREAT ININE S/P/B 0.86 0.7 - 1.3 MG/DL 04/01 7:49 AM CDT [facility] Not Available Not Available 12/08/2024 10:29:10 04/01/20 24 04/01/2024 Basic metab olic 2000 panel - Serum or Plasm a sodium [moles/volum e] in serum or plasma 135 text: 136 - 145 mmol/L low SODIU M S/P/B 135 (L) 136 - 145 MMOL/ L 04/01 7:49 AM CDT [facility] Not Available Not Available 12/08/2024 10:29:10 04/01/20 24 04/01/2024 Basic metab olic 1999 panel - Serum or Plasm a potassium [moles/volum e] in serum or plasma 3.7 text: 3.5 - 5.1 mmol/L POTAS SIUM S/P/B 3.7 3.5 - 5.1 MMOL/ L 04/01 7:49 AM CDT [facility] Not Available Not Available 12/08/2024 10:29:10 04/01/20 24 04/01/2024 Basic metab olic 1999 panel - Serum or Plasm a chloride [moles/volum e] in serum or plasma 106 text: 100 - 108 mmol/L CHLOR KATERIN S/P/B 106 100 - 108 MMOL/ L 04/01 7:49 AM CDT [facility] Not Available Not Available 12/08/2024 10:29:10 04/01/20 24 04/01/2024 Basic metab olic 1999 panel - Serum or Plasm a carbon dioxide, total [moles/volum e] in serum or plasma 21.5 text: 21 - 32 mmol/L CO2 21.5 21 - 32 MMOL/ L 04/01 7:49 AM CDT [facility] Not Available Not Available 12/08/2024 10:29:10 04/01/20 24 04/01/2024 Basic metab olic 1999 panel - Serum or Plasm a calcium [mass/volume ] in serum or plasma 8.7 text: 8.5 - 10.1 mg/dL CALCI UM S/P/B 8.7 8.5 - 10.1 MG/DL 04/01 7:49 AM CDT [facility] Not Available Not Available 12/08/2024 10:29:10 04/01/20 24 04/01/2024 Basic metab olic 1999 panel - Serum or Plasm a anion gap in serum or plasma 7.5 text: 5 - 15 mmol/L ANION GAP 7.5 5 - 15 MMOL/ L 04/01 7:49 AM T [facility] Not Available Not Available 12/08/2024 10:29:10 04/01/20 24 04/01/2024 Basic metab olic 2000 panel - Serum or Plasm a urea nitrogen/cre atinine [mass ratio] in serum or plasma 12.9 low: 6high: 26 BUN CREAT ININE RATIO 12.9 6 - 26 04/01 7:49 AM CDT [facility] Not Available Not Available 12/08/2024 10:29:10 04/01/20 24 04/01/2024 Basic metab olic 2000 panel - Serum or Plasm a glomerular filtration rate/1.73 sq M.predicted [volume rate/area] in serum, plasma or blood by creatinine-b ased formula (CKD-epi 2020) text: >90 mL/min /1.73 M2 GFR ESTIM ATE >90 >90 ML/WI N/1.7 3 M2 04/01 7:49 AM CDT [facility] Not Available Not Available 12/08/2024 10:29:10 04/01/20 24 04/01/2024 Basic metab olic 2000 panel - Serum or Plasm a interpretati on and review of laboratory results ABNORM AL Not Available Not Available 10:29:10 04/01/20 24 04/01/2024 CBC W Auto Diffe renti al panel - Blood leukocytes [#/volume] in blood by automated count 10.99 text: 4.5 - 11.0 x10'3/ uL WBC 10.99 4.5 - 11.0 x10'3 /uL 04/01 7:14 AM CDT [facility] Not Available Not Available 12/08/2024 10:29:09 04/01/20 24 04/01/2024 CBC W Auto Diffe renti al panel - Blood erythrocytes [#/volume] in blood by automated count 4.88 text: 4.70 - 6.10 x10'6/ uL RBC 4.88 4.70 - 6.10 x10'6 /uL 04/01 7:14 AM CDT [facility] Not Available Not Available 12/08/2024 10:29:04/01/20 24 04/01/2024 CBC W Auto Diffe renti al panel - Blood hemoglobin [mass/volume ] in blood 14.4 text: 14.0 - 18.0 g/dL HGB 14.4 14.0 - 18.0 G/DL 04/01 7:14 AM CDT [facility] Not Available Not Available 12/08/2024 10:29:04/01/2004/01/2024 CBC W Auto Diffe renti al panel - Blood hematocrit [volume fraction] of blood 43.7 % low: 43%hig h: 54% HCT 43.7 43.0 - 54.0 % 04/01 7:14 AM CDT [facility] Not Available Not Available 12/08/2024 10:29:04/01/20 24 04/01/2024 CBC W Auto Diffe renti al panel - Blood MCV [entitic volume] 89.5 text: 80.0 - 94.0 fL MCV 89.5 80.0 - 94.0 FL 04/01 7:14 AM CDT [facility] Not Available Not Available 12/08/2024 10:29:04/01/20 24 04/01/2024 CBC W Auto Diffe renti al panel - Blood MCH [entitic mass] 29.5 pg low: 27pghi gh: 31pg MCH 29.5 27.0 - 31.0 PG 04/01 7:14 AM CDT [facility] Not Available Not Available 12/08/2024 10:29:04/01/20 24 04/01/2024 CBC W Auto Diffe renti al panel - Blood MCHC [mass/volume ] 33 text: 32.0 - 36.0 g/dL MCHC 33.0 32.0 - 36.0 G/DL 04/01 7:14 AM CDT [facility] Not Available Not Available 12/08/2024 10:29:04/01/20 24 04/01/2024 CBC W Auto Diffe renti al panel - Blood erythrocyte distribution width [entitic volume] by automated count 12.2 % low: 11.5%h igh: 14.5% RDW 12.2 11.5 - 14.5 % 04/01 7:14 AM CDT [facility] Not Available Not Available 12/08/2024 10:29:04/01/20 24 04/01/2024 CBC W Auto Diffe renti al panel - Blood platelets [#/volume] in blood 180 text: 130 - 400 x10'3/ uL PLT 180 130 - 400 x10'3 /uL 04/01 7:14 AM CDT [facility] Not Available Not Available 12/08/2024 10:29:04/01/20 24 04/01/2024 CBC W Auto Diffe renti al panel - Blood platelet mean volume [entitic volume] in blood 9.6 text: 9.3 - 12.2 fL MPV 9.6 9.3 - 12.2 FL 04/01 7:14 AM CDT [facility] Not Available Not Available 12/08/2024 10:29:04/01/20 24 04/01/2024 CBC W Auto Diffe renti al panel - Blood differential cell count method - blood AUTOMA TOSHIA DIFFER ENTIAL DIFFE RENTI AL TYPE AUTOM ATED DIFFE RENTI AL 04/01 7:14 AM CDT [facility] Not Available Not Available 12/08/2024 10:29:04/01/20 24 04/01/2024 CBC W Auto Diffe renti al panel - Blood neutrophils/ 100 leukocytes in blood by automated count 70.8 % NEUTR OPHIL S % 70.8 % 04/01 7:14 AM CDT [facility] Not Available Not Available 12/08/2024 10:29:09 04/01/20 24 04/01/2024 CBC W Auto Diffe renti al panel - Blood lymphocytes/ 100 leukocytes in blood by automated count 21.7 % LYMPH OCYTE S % 21.7 % 04/01 7:14 AM CDT [facility] Not Available Not Available 12/08/2024 10:29:04/01/20 24 04/01/2024 CBC W Auto Diffe renti al panel - Blood monocytes/10 0 leukocytes in blood by automated count 5.4 % MONOC YTES % 5.4 % 04/01 7:14 AM CDT [facility] Not Available Not Available 12/08/2024 10:29:04/01/20 24 04/01/2024 CBC W Auto Diffe renti al panel - Blood eosinophils/ 100 leukocytes in blood by automated count 1.2 % EOSIN OPHIL S 1.2 % 04/01 7:14 AM CDT [facility] Not Available Not Available 12/08/2024 10:29:09 04/01/20 24 04/01/2024 CBC W Auto Diffe renti al panel - Blood basophils/10 0 leukocytes in blood by automated count 0.4 % BASOP HILS 0.4 % 04/01 7:14 AM CDT [facility] Not Available Not Available 12/08/2024 10:29:04/01/20 24 04/01/2024 CBC W Auto Diffe renti al panel - Blood immature granulocytes /100 leukocytes in blood by automated count 0.5 % IMMAT URE GRANS % 0.5 % 04/01 7:14 AM CDT [facility] Not Available Not Available 12/08/2024 10:29:04/01/20 24 04/01/2024 CBC W Auto Diffe renti al panel - Blood neutrophils [#/volume] in blood 7.8 text: 1.80 - 7.70 x10'3/ uL high ABS. NEUTR OPHIL S 7.80 (H) 1.80 - 7.70 x10'3 /uL 04/01 7:14 AM CDT [facility] Not Available Not Available 12/08/2024 10:29:04/01/20 24 04/01/2024 CBC W Auto Diffe renti al panel - Blood lymphocytes [#/volume] in blood 2.38 text: 1.00 - 4.80 x10'3/ uL ABS. LYMPH OCYTE S 2.38 1.00 - 4.80 x10'3 /uL 04/01 7:14 AM CDT [facility] Not Available Not Available 12/08/2024 10:29:04/01/20 24 04/01/2024 CBC W Auto Diffe renti al panel - Blood monocytes [#/volume] in blood 0.59 text: 0.30 - 0.82 x10'3/ uL ABS. MONOC YTES 0.59 0.30 - 0.82 x10'3 /uL 04/01 7:14 AM CDT [facility] Not Available Not Available 12/08/2024 10:29:04/01/2004/01/2024 CBC W Auto Diffe renti al panel - Blood eosinophils [#/volume] in blood 0.13 text: 0.04 - 0.54 x10'3/ uL ABS. EOSIN OPHIL S 0.13 0.04 - 0.54 x10'3 /uL 04/01 7:14 AM CDT [facility] Not Available Not Available 12/08/2024 10:29:04/01/20 24 04/01/2024 CBC W Auto Diffe renti al panel - Blood basophils [#/volume] in blood 0.04 text: 0.01 - 0.08 x10'3/ uL ABS. BASOP HILS 0.04 0.01 - 0.08 x10'3 /uL 04/01 7:14 AM CDT [facility] Not Available Not Available 12/08/2024 10:29:04/01/20 24 04/01/2024 CBC W Auto Diffe renti al panel - Blood immature granulocytes [#/volume] in blood 0.05 text: 0.00 - 0.49 x10'3/ uL ABS. IMMAT URE GRANU LOCYT ES 0.05 0.00 - 0.49 x10'3 /uL 04/01 7:14 AM CDT [facility] Not Available Not Available 12/08/2024 10:29:04/01/20 24 04/01/2024 CBC W Auto Diffe renti al panel - Blood interpretati on and review of laboratory results ABNORM AL Not Available Not Available 10:29:04/01/20 24 04/01/2024 Lipid 1996 panel - Serum or Plasm a cholesterol [mass/volume ] in serum or plasma 154 text: <200 mg/dL MARK STERO L 154 <200 MG/DL 04/01 7:49 AM T [facility] Not Available Not Available 12/08/2024 10:29:04/01/20 24 04/01/2024 Lipid 1996 panel - Serum or Plasm a triglyceride [mass/volume ] in serum or plasma 191 text: <150 mg/dL high TRIGL YCERI BOBBI 191 (H) <150 MG/DL 04/01 7:49 AM T [facility] Not Available Not Available 12/08/2024 10:29:04/01/20 24 04/01/2024 Lipid 1996 panel - Serum or Plasm a cholesterol in HDL [mass/volume ] in serum or plasma 30 text: >40.0 mg/dL low HDL 30 (L) >40.0 MG/DL 04/01 7:49 AM T [facility] Not Available Not Available 12/08/2024 10:29:04/01/20 24 04/01/2024 Lipid 1996 panel - Serum or Plasm a cholesterol in LDL [mass/volume ] in serum or plasma by calculation 86 text: <100 mg/dL LDL (CALC ULATE D) 86 <100 MG/DL 04/01 7:49 AM CDT [facility] Not Available Not Available 12/08/2024 10:29:04/01/20 24 04/01/2024 Lipid 1996 panel - Serum or Plasm a cholesterol non HDL [mass/volume ] in serum or plasma 124 text: <130 mg/dL NON HDL MARK STERO L 124 <130 MG/DL 04/01 7:49 AM CDT [facility] Not Available Not Available 12/08/2024 10:29:04/01/20 24 04/01/2024 Lipid 1996 panel - Serum or Plasm a cholesterol. total/choles terol in HDL [mass ratio] in serum or plasma 5.1 low: 0high: 4.5 high CHOL/ HDL RATIO 5.1 (H) 0.0 - 4.5 04/01 7:49 AM CDT [facility] Not Available Not Available 12/08/2024 10:29:04/01/20 24 04/01/2024 Lipid 1996 panel - Serum or Plasm a cholesterol in VLDL [mass/volume ] in serum or plasma by calculation 38 text: 5 - 55 mg/dL VLDL CALCU LATIO N 38 5 - 55 MG/DL 04/01 7:49 AM T [facility] Not Available Not Available 12/08/2024 10:29:04/01/20 24 04/01/2024 Lipid 1996 panel - Serum or Plasm a service comment LIPID INTER PRETA TION 04/01 7:49 AM CDT [facility] Not Available Not Available 12/08/2024 10:29:04/01/20 24 04/01/2024 Lipid 1996 panel - Serum or Plasm a interpretati on and review of laboratory results ABNORM AL Not Available Not Available 10:29:04/01/20 24 04/01/2024 Hemog lobin A1c/H emogl obin. total in Blood hemoglobin A1C/hemoglob in.total in blood 12.6 % high: 5.7% high HGB A1C 12.6 (H) <5.7 % 04/01 10:25 AM CDT [facility] Not Available Not Available 12/08/2024 10:29:04/01/20 24 04/01/2024 Hemog lobin A1c/H emogl obin. total in Blood glucose mean value [mass/volume ] in blood estimated from glycated hemoglobin 315 mg/dL ESTIM ATED AVG GLUCO SE 315 mg/dL 04/01 10:25 AM CDT [facility] Not Available Not Available 12/08/2024 10:29:04/01/20 24 04/01/2024 Hemog lobin A1c/H emogl obin. total in Blood interpretati on and review of laboratory results ABNORM AL Not Available Not Available 10:29:04/01/20 24 04/01/2024 Gluco se [Mass /volu me] in Blood by Autom ated test strip glucose [mass/volume ] in blood by automated test strip 184 mg/dL low: 70mg/d Lhigh: 99mg/d L high GLUCO SE POC 184 (H) 70 - 99 mg/dL 04/01 6:21 AM CDT [facility] Not Available Not Available 12/08/2024 10:29:04/01/20 24 04/01/2024 Gluco se [Mass /volu me] in Blood by Autom ated test strip interpretati on and review of laboratory results ABNORM AL Not Available Not Available 10:29:04/02/20 24 04/02/2024 Gluco se [Mass /volu me] in Blood by Autom ated test strip glucose [mass/volume ] in blood by automated test strip 150 mg/dL low: 70mg/d Lhigh: 99mg/d L high GLUCO SE POC 150 (H) 70 - 99 mg/dL 04/02 8:48 PM CDT [facility] Not Available Not Available 12/08/2024 10:29:20 24 04/02/2024 Gluco se [Mass /volu me] in Blood by Autom ated test strip interpretati on and review of laboratory results ABNORM AL Not Available Not Available 10:29:10 04/02/20 24 04/02/2024 Gluco se [Mass /volu me] in Blood by Autom ated test strip glucose [mass/volume ] in blood by automated test strip 299 mg/dL low: 70mg/d Lhigh: 99mg/d L high GLUCO SE POC 299 (H) 70 - 99 mg/dL 04/02 4:21 PM CDT [facility] Not Available Not Available 12/08/2024 10:29:10 04/02/20 24 04/02/2024 Gluco se [Mass /volu me] in Blood by Autom ated test strip interpretati on and review of laboratory results ABNORM AL Not Available Not Available 10:29:10 04/02/20 24 04/02/2024 Gluco se [Mass /volu me] in Blood by Autom ated test strip glucose [mass/volume ] in blood by automated test strip 197 mg/dL low: 70mg/d Lhigh: 99mg/d L high GLUCO SE POC 197 (H) 70 - 99 mg/dL 04/02 11:45 AM CDT [facility] Not Available Not Available 12/08/2024 10:29:10 04/02/20 24 04/02/2024 Gluco se [Mass /volu me] in Blood by Autom ated test strip interpretati on and review of laboratory results ABNORM AL Not Available Not Available 10:29:10 04/02/20 24 04/02/2024 CBC W Auto Diffe renti al panel - Blood leukocytes [#/volume] in blood by automated count 8.91 text: 4.5 - 11.0 x10'3/ uL WBC 8.91 4.5 - 11.0 x10'3 /uL 04/02 8:20 AM CDT [facility] Not Available Not Available 12/08/2024 10:29:10 04/02/20 24 04/02/2024 CBC W Auto Diffe renti al panel - Blood erythrocytes [#/volume] in blood by automated count 4.91 text: 4.70 - 6.10 x10'6/ uL RBC 4.91 4.70 - 6.10 x10'6 /uL 04/02 8:20 AM CDT [facility] Not Available Not Available 12/08/2024 10:29:10 04/02/20 24 04/02/2024 CBC W Auto Diffe renti al panel - Blood hemoglobin [mass/volume ] in blood 14.7 text: 14.0 - 18.0 g/dL HGB 14.7 14.0 - 18.0 G/DL 04/02 8:20 AM CDT [facility] Not Available Not Available 12/08/2024 10:29:10 04/02/20 24 04/02/2024 CBC W Auto Diffe renti al panel - Blood hematocrit [volume fraction] of blood 43.5 % low: 43%hig h: 54% HCT 43.5 43.0 - 54.0 % 04/02 8:20 AM CDT [facility] Not Available Not Available 12/08/2024 10:29:10 04/02/20 24 04/02/2024 CBC W Auto Diffe renti al panel - Blood MCV [entitic volume] 88.6 text: 80.0 - 94.0 fL MCV 88.6 80.0 - 94.0 FL 04/02 8:20 AM CDT [facility] Not Available Not Available 12/08/2024 10:29:10 04/02/20 24 04/02/2024 CBC W Auto Diffe renti al panel - Blood MCH [entitic mass] 29.9 pg low: 27pghi gh: 31pg MCH 29.9 27.0 - 31.0 PG 04/02 8:20 AM CDT [facility] Not Available Not Available 12/08/2024 10:29:10 04/02/20 24 04/02/2024 CBC W Auto Diffe renti al panel - Blood MCHC [mass/volume ] 33.8 text: 32.0 - 36.0 g/dL MCHC 33.8 32.0 - 36.0 G/DL 04/02 8:20 AM CDT [facility] Not Available Not Available 12/08/2024 10:29:10 04/02/20 24 04/02/2024 CBC W Auto Diffe renti al panel - Blood erythrocyte distribution width [entitic volume] by automated count 12.3 % low: 11.5%h igh: 14.5% RDW 12.3 11.5 - 14.5 % 04/02 8:20 AM CDT [facility] Not Available Not Available 12/08/2024 10:29:10 04/02/20 24 04/02/2024 CBC W Auto Diffe renti al panel - Blood platelets [#/volume] in blood 200 text: 130 - 400 x10'3/ uL PLT 200 130 - 400 x10'3 /uL 04/02 8:20 AM CDT [facility] Not Available Not Available 12/08/2024 10:29:10 04/02/20 24 04/02/2024 CBC W Auto Diffe renti al panel - Blood platelet mean volume [entitic volume] in blood 9.8 text: 9.3 - 12.2 fL MPV 9.8 9.3 - 12.2 FL 04/02 8:20 AM CDT [facility] Not Available Not Available 12/08/2024 10:29:10 04/02/20 24 04/02/2024 CBC W Auto Diffe renti al panel - Blood differential cell count method - blood AUTOMA TOSHIA DIFFER ENTIAL DIFFE RENTI AL TYPE AUTOM ATED DIFFE RENTI AL 04/02 8:20 AM CDT [facility] Not Available Not Available 12/08/2024 10:29:10 04/02/20 24 04/02/2024 CBC W Auto Diffe renti al panel - Blood neutrophils/ 100 leukocytes in blood by automated count 63.4 % NEUTR OPHIL S % 63.4 % 04/02 8:20 AM CDT [facility] Not Available Not Available 12/08/2024 10:29:10 04/02/20 24 04/02/2024 CBC W Auto Diffe renti al panel - Blood lymphocytes/ 100 leukocytes in blood by automated count 26.3 % LYMPH OCYTE S % 26.3 % 04/02 8:20 AM CDT [facility] Not Available Not Available 12/08/2024 10:29:10 04/02/20 24 04/02/2024 CBC W Auto Diffe renti al panel - Blood monocytes/10 0 leukocytes in blood by automated count 8.2 % MONOC YTES % 8.2 % 04/02 8:20 AM CDT [facility] Not Available Not Available 12/08/2024 10:29:10 04/02/20 24 04/02/2024 CBC W Auto Diffe renti al panel - Blood eosinophils/ 100 leukocytes in blood by automated count 1.5 % EOSIN OPHIL S 1.5 % 04/02 8:20 AM CDT [facility] Not Available Not Available 12/08/2024 10:29:10 04/02/20 24 04/02/2024 CBC W Auto Diffe renti al panel - Blood basophils/10 0 leukocytes in blood by automated count 0.2 % BASOP HILS 0.2 % 04/02 8:20 AM CDT [facility] Not Available Not Available 12/08/2024 10:29:10 04/02/20 24 04/02/2024 CBC W Auto Diffe renti al panel - Blood immature granulocytes /100 leukocytes in blood by automated count 0.4 % IMMAT URE GRANS % 0.4 % 04/02 8:20 AM CDT [facility] Not Available Not Available 12/08/2024 10:29:10 04/02/20 24 04/02/2024 CBC W Auto Diffe renti al panel - Blood neutrophils [#/volume] in blood 5.65 text: 1.80 - 7.70 x10'3/ uL ABS. NEUTR OPHIL S 5.65 1.80 - 7.70 x10'3 /uL 04/02 8:20 AM CDT [facility] Not Available Not Available 12/08/2024 10:29:10 04/02/20 24 04/02/2024 CBC W Auto Diffe renti al panel - Blood lymphocytes [#/volume] in blood 2.34 text: 1.00 - 4.80 x10'3/ uL ABS. LYMPH OCYTE S 2.34 1.00 - 4.80 x10'3 /uL 04/02 8:20 AM CDT [facility] Not Available Not Available 12/08/2024 10:29:10 04/02/20 24 04/02/2024 CBC W Auto Diffe renti al panel - Blood monocytes [#/volume] in blood 0.73 text: 0.30 - 0.82 x10'3/ uL ABS. MONOC YTES 0.73 0.30 - 0.82 x10'3 /uL 04/02 8:20 AM CDT [facility] Not Available Not Available 12/08/2024 10:29:10 04/02/20 24 04/02/2024 CBC W Auto Diffe renti al panel - Blood eosinophils [#/volume] in blood 0.13 text: 0.04 - 0.54 x10'3/ uL ABS. EOSIN OPHIL S 0.13 0.04 - 0.54 x10'3 /uL 04/02 8:20 AM CDT [facility] Not Available Not Available 12/08/2024 10:29:10 04/02/20 24 04/02/2024 CBC W Auto Diffe renti al panel - Blood basophils [#/volume] in blood 0.02 text: 0.01 - 0.08 x10'3/ uL ABS. BASOP HILS 0.02 0.01 - 0.08 x10'3 /uL 04/02 8:20 AM CDT [facility] Not Available Not Available 12/08/2024 10:29:10 04/02/20 24 04/02/2024 CBC W Auto Diffe renti al panel - Blood immature granulocytes [#/volume] in blood 0.04 text: 0.00 - 0.49 x10'3/ uL ABS. IMMAT URE GRANU LOCYT ES 0.04 0.00 - 0.49 x10'3 /uL 04/02 8:20 AM CDT [facility] Not Available Not Available 12/08/2024 10:29:10 04/02/20 24 04/02/2024 Basic metab olic 1999 panel - Serum or Plasm a glucose [mass/volume ] in serum or plasma 137 text: 70 - 99 mg/dL high GLUCO SE 137 (H) 70 - 99 MG/DL 04/02 8:32 AM CDT [facility] Not Available Not Available 12/08/2024 10:29:10 04/02/20 24 04/02/2024 Basic metab olic 2000 panel - Serum or Plasm a urea nitrogen [mass/volume ] in serum or plasma 8 text: 7 - 18 mg/dL BUN 8 7 - 18 MG/DL 04/02 8:32 AM T [facility] Not Available Not Available 12/08/2024 10:29:10 04/02/20 24 04/02/2024 Basic metab olic 1999 panel - Serum or Plasm a creatinine [mass/volume ] in serum or plasma 0.9 text: 0.7 - 1.3 mg/dL CREAT ININE S/P/B 0.90 0.7 - 1.3 MG/DL 04/02 8:32 AM CDT [facility] Not Available Not Available 12/08/2024 10:29:10 04/02/20 24 04/02/2024 Basic metab olic 2000 panel - Serum or Plasm a sodium [moles/volum e] in serum or plasma 140 text: 136 - 145 mmol/L SODIU M S/P/B 140 136 - 145 MMOL/ L 04/02 8:32 AM CDT [facility] Not Available Not Available 12/08/2024 10:29:10 04/02/20 24 04/02/2024 Basic metab olic 2000 panel - Serum or Plasm a potassium [moles/volum e] in serum or plasma 3.8 text: 3.5 - 5.1 mmol/L POTAS SIUM S/P/B 3.8 3.5 - 5.1 MMOL/ L 04/02 8:32 AM CDT [facility] Not Available Not Available 12/08/2024 10:29:10 04/02/20 24 04/02/2024 Basic metab olic 2000 panel - Serum or Plasm a chloride [moles/volum e] in serum or plasma 108 text: 100 - 108 mmol/L CHLOR KATERIN S/P/B 108 100 - 108 MMOL/ L 04/02 8:32 AM CDT [facility] Not Available Not Available 12/08/2024 10:29:10 04/02/20 24 04/02/2024 Basic metab olic 2000 panel - Serum or Plasm a carbon dioxide, total [moles/volum e] in serum or plasma 23.6 text: 21 - 32 mmol/L CO2 23.6 21 - 32 MMOL/ L 04/02 8:32 AM CDT [facility] Not Available Not Available 12/08/2024 10:29:10 04/02/20 24 04/02/2024 Basic metab olic 2000 panel - Serum or Plasm a calcium [mass/volume ] in serum or plasma 8.8 text: 8.5 - 10.1 mg/dL CALCI UM S/P/B 8.8 8.5 - 10.1 MG/DL 04/02 8:32 AM CDT [facility] Not Available Not Available 12/08/2024 10:29:10 04/02/20 24 04/02/2024 Basic metab olic 2000 panel - Serum or Plasm a anion gap in serum or plasma 8.4 text: 5 - 15 mmol/L ANION GAP 8.4 5 - 15 MMOL/ L 04/02 8:32 AM CDT [facility] Not Available Not Available 12/08/2024 10:29:10 04/02/20 24 04/02/2024 Basic metab olic 2000 panel - Serum or Plasm a urea nitrogen/cre atinine [mass ratio] in serum or plasma 8.9 low: 6high: 26 BUN CREAT ININE RATIO 8.9 6 - 26 04/02 8:32 AM CDT [facility] Not Available Not Available 12/08/2024 10:29:10 04/02/20 24 04/02/2024 Basic metab olic 2000 panel - Serum or Plasm a glomerular filtration rate/1.73 sq M.predicted [volume rate/area] in serum, plasma or blood by creatinine-b ased formula (CKD-epi 2020) text: >90 mL/min /1.73 M2 GFR ESTIM ATE >90 >90 ML/WI N/1.7 3 M2 04/02 8:32 AM CDT [facility] Not Available Not Available 12/08/2024 10:29:10 04/02/20 24 04/02/2024 Basic metab olic 2000 panel - Serum or Plasm a interpretati on and review of laboratory results ABNORM AL Not Available Not Available 10:29:10 04/02/20 24 04/02/2024 Gluco se [Mass /volu me] in Blood by Autom ated test strip glucose [mass/volume ] in blood by automated test strip 84 mg/dL low: 70mg/d Lhigh: 99mg/d L GLUCO SE POC 84 70 - 99 mg/dL 04/02 6:14 AM CDT [facility] Not Available Not Available 12/08/2024 10:29:10 09/30/20 24 09/30/2024 Gluco se [Mass /volu me] in Blood by Autom ated test strip glucose [mass/volume ] in blood by automated test strip 275 mg/dL low: 70mg/d Lhigh: 99mg/d L high GLUCO SE POC 275 (H) 70 - 99 mg/dL 09/30 5:48 PM [facility]OKER ASSISTANT [facility] Not Available Not Available 12/08/2024 10:29:00 09/30/20 24 09/30/2024 Gluco se [Mass /volu me] in Blood by Autom ated test strip interpretati on and review of laboratory results ABNORM AL Not Available Not Available 10:29:00 09/30/20 24 09/30/2024 Lacta te [Mole s/vol ume] in Serum or Plasm a lactate [moles/volum e] in serum or plasma 4.6 text: 0.4 - 2.0 mmol/L high LACTI C ACID VENOU S 4.6 (H) 0.4 - 2.0 MMOL/ L 09/30 2:28 PM [facility]OK[facility] ASSISTANT [facility] Not Available Not Available 12/08/2024 10:29:00 09/30/20 24 09/30/2024 Lacta te [Mole s/vol ume] in Serum or Plasm a interpretati on and review of laboratory results ABNORM AL Not Available Not Available 10:29:00 09/30/20 24 09/30/2024 Gluco se [Mass /volu me] in Blood by Autom ated test strip glucose [mass/volume ] in blood by automated test strip 288 mg/dL low: 70mg/d Lhigh: 99mg/d L high GLUCO SE POC 288 (H) 70 - 99 mg/dL 09/30 12:17 PM [facility]OK[facility] ASSISTANT [facility] Not Available Not Available 12/08/2024 10:29:00 09/30/20 24 09/30/2024 Gluco se [Mass /volu me] in Blood by Autom ated test strip interpretati on and review of laboratory results ABNORM AL Not Available Not Available 10:29:00 09/30/20 24 09/30/2024 Proca lcito christina [Mass /volu me] in Serum or Plasm a procalcitoni n [mass/volume ] in serum or plasma 0.72 text: 0.00 - 0.49 NG/mL high Proca lcito christina 0.72 (H) 0.00 - 0.49 NG/ML 09/30 3:40 PM [facility] ASSISTANT [facility] Not Available Not Available 12/08/2024 10:29:00 09/30/20 24 09/30/2024 Proca lcito christina [Mass /volu me] in Serum or Plasm a interpretati on and review of laboratory results ABNORM AL Not Available Not Available 10:29:00 09/30/20 24 09/30/2024 Gas panel - Arter ial blood pH of blood 7.28 low: 7.35hi gh: 7.45 low PH ARTER IAL 7.28 (L) 7.35 - 7.45 09/30 2:50 PM [facility]OK[facility] ASSISTANT [facility] Not Available Not Available 12/08/2024 10:29:00 09/30/20 24 09/30/2024 Gas panel - Arter ial blood carbon dioxide [partial pressure] in blood 50 text: 35.0 - 45.0 mmHg high PCO2 50.0 (H) 35.0 - 45.0 MMHG 09/30 2:50 PM [facility] ASSISTANT [facility] Not Available Not Available 12/08/2024 10:29:00 09/30/20 24 09/30/2024 Gas panel - Arter ial blood oxygen [partial pressure] in blood 240 text: 83.0 - 108.0 mmHg high PO2 240.0 (H) 83.0 - 108.0 MMHG 09/30 2:50 PM [facility]OK[facility] ASSISTANT [facility] Not Available Not Available 12/08/2024 10:29:00 09/30/20 24 09/30/2024 Gas panel - Arter ial blood carbon dioxide, total [moles/volum e] in blood 25 text: 19.0 - 24.0 mmol/L high TOTAL CO2 ARTER IAL 25.0 (H) 19.0 - 24.0 MMOL/ L 09/30 2:50 PM BROK[facility] ASSISTANT [facility] Not Available Not Available 12/08/2024 10:29:00 09/30/20 24 09/30/2024 Gas panel - Arter ial blood base deficit in arterial blood 3.7 text: 0.0 - 3.0 mmol/L high BASE DEFIC IT 3.7 (H) 0.0 - 3.0 MMOL/ L 09/30 2:50 PM [facility] ASSISTANT [facility] Not Available Not Available 12/08/2024 10:29:00 09/30/20 24 09/30/2024 Gas panel - Arter ial blood oxygen saturation in blood 100 % low: 94%hig h: 98% high O2 SATUR ATION 100 (H) 94.0 - 98.0 % 09/30 2:50 PM [facility] ASSISTANT [facility] Not Available Not Available 12/08/2024 10:29:00 09/30/20 24 09/30/2024 Gas panel - Arter ial blood bicarbonate [moles/volum e] in blood 23.5 text: 21.0 - 28.0 mmol/L BICAR B ARTER IAL 23.5 21.0 - 28.0 MMOL/ L 09/30 2:50 PM [facility] Not Available 12/08/2024 10:29:00 09/30/20 24 09/30/2024 Gas panel - Arter ial blood arterial patency wrist artery --pre arterial puncture RITIKA TEST PERFOR MED RITIKA TEST RITIKA TEST PERFO RMED 09/30 2:46 PM [facility] ASSISTANT [facility] Not Available Not Available 12/08/2024 10:29:00 09/30/20 24 09/30/2024 Gas panel - Arter ial blood service comment 60 O2 ADMIN ARTER IAL 60 09/30 2:46 PM [facility] ASSISTANT [facility] Not Available Not Available 12/08/2024 10:29:00 09/30/20 24 09/30/2024 Gas panel - Arter ial blood specimen site narrative LT RADIAL DRAW SITE ARTER IAL LT RADIA L 09/30 2:46 PM [facility]OK[facility] ASSISTANT [facility] Not Available Not Available 12/08/2024 10:29:00 09/30/20 24 09/30/2024 Gas panel - Arter ial blood interpretati on and review of laboratory results ABNORM AL Not Available Not Available 10:29:00 09/30/20 24 09/30/2024 Gluco se [Mass /volu me] in Blood by Autom ated test strip glucose [mass/volume ] in blood by automated test strip 411 mg/dL low: 70mg/d Lhigh: 99mg/d L critical high GLUCO SE POC 411 (HH) 70 - 99 mg/dL 09/30 7:09 AM BROK[facility] ASSISTANT [facility] Not Available Not Available 12/08/2024 10:29:00 09/30/20 24 09/30/2024 Gluco se [Mass /volu me] in Blood by Autom ated test strip interpretati on and review of laboratory results ABNORM AL Not Available Not Available 10:29:00 09/30/20 24 10/01/2024 Methi cilli n resis tant Staph yloco ccus aureu s [Pres ence] in Speci men by Organ ism speci fic cultu re specimen source identified NASAL SPEC DESCR IPTIO N NASAL 09/30 6:48 AM BROK[facility] ASSISTANT [facility] Not Available Not Available 12/08/2024 10:29:00 09/30/20 24 10/01/2024 Methi cilli n resis tant Staph yloco ccus aureu s [Pres ence] in Speci men by Organ ism speci fic cultu re service comment NO SPECIA L REQUES T SPECI AL REQUE STS NO SPECI AL REQUE ST 09/30 6:48 AM BROK[facility] ASSISTANT [facility] Not Available Not Available 12/08/2024 10:29:00 09/30/20 24 10/01/2024 Methi cilli n resis tant Staph yloco ccus aureu s [Pres ence] in Speci men by Organ ism speci fic cultu re bacteria identified in specimen by culture NO METHIC ILLIN RESIST ANT STAPHY LOCOCC US AUREUS ISOLAT ED CULTU RE RESUL T NO METHI CILLI N RESIS TANT STAPH YLOCO CCUS AUREU S ISOLA TOSHIA 10/01 7:06 AM BROK[facility] ASSISTANT [facility] Not Available Not Available 12/08/2024 10:29:00 09/30/20 24 09/30/2024 Gluco se [Mass /volu me] in Blood by Autom ated test strip glucose [mass/volume ] in blood by automated test strip 445 mg/dL low: 70mg/d Lhigh: 99mg/d L critical high GLUCO SE POC 445 (HH) 70 - 99 mg/dL 09/30 5:05 AM [facility] Not Available Not Available 12/08/2024 10:29:00 09/30/20 24 09/30/2024 Gluco se [Mass /volu me] in Blood by Autom ated test strip interpretati on and review of laboratory results ABNORM AL Not Available Not Available 10:29:00 09/30/20 24 09/30/2024 Lacta te [Mole s/vol ume] in Serum or Plasm a lactate [moles/volum e] in serum or plasma 2.2 text: 0.4 - 2.0 mmol/L high LACTI C ACID VENOU S 2.2 (H) 0.4 - 2.0 MMOL/ L 09/30 5:36 AM [facility] Not Available Not Available 12/08/2024 10:29:00 09/30/20 24 09/30/2024 Lacta te [Mole s/vol ume] in Serum or Plasm a interpretati on and review of laboratory results ABNORM AL Not Available Not Available 10:29:00 09/30/20 24 09/30/2024 Influ rubén virus A and B and SARS- CoV-2 (COVI D-19) and SARS- relat ed CoV RNA panel - Respi rator y syste m speci men by JACOB with probe detec tion adenovirus DNA [presence] in nasopharynx by JACOB with probe detection NOT DETECT ED text: not detect ed ADENO VIRUS PCR (RESP ) NOT DETEC TOSHIA NOT DETEC TOSHIA 09/30 6:18 AM BROKER ASSISTANT [facility] Not Available Not Available 12/08/2024 10:28:59 09/30/20 24 09/30/2024 Influ rubén virus A and B and SARS- CoV-2 (COVI D-19) and SARS- relat ed CoV RNA panel - Respi rator y syste m speci men by JACOB with probe detec tion human coronavirus 229E RNA [presence] in specimen by JACOB with probe detection NOT DETECT ED text: not detect ed CORON AVIRU S 229E PCR (RESP ) NOT DETEC TOSHIA NOT DETEC TOSHIA 09/30 6:18 AM BROKER ASSISTANT [facility] Not Available Not Available 12/08/2024 10:28:59 09/30/20 24 09/30/2024 Influ rubén virus A and B and SARS- CoV-2 (COVI D-19) and SARS- relat ed CoV RNA panel - Respi rator y syste m speci men by JACOB with probe detec tion human coronavirus hku1 RNA [presence] in specimen by JACOB with probe detection NOT DETECT ED text: not detect ed CORON AVIRU S HKU1 PCR (RESP ) NOT DETEC TOSHIA NOT DETEC TOSHIA 09/30 6:18 AM BROK[facility] ASSISTANT [facility] Not Available Not Available 12/08/2024 10:28:59 09/30/20 24 09/30/2024 Influ rubén virus A and B and SARS- CoV-2 (COVI D-19) and SARS- relat ed CoV RNA panel - Respi rator y syste m speci men by JACOB with probe detec tion human coronavirus nl63 RNA [presence] in specimen by JACOB with probe detection NOT DETECT ED text: not detect ed CORON AVIRU S NL63 PCR (RESP ) NOT DETEC TOSHIA NOT DETEC TOSHIA 09/30 6:18 AM BROK[facility] ASSISTANT [facility] Not Available Not Available 12/08/2024 10:28:59 09/30/20 24 09/30/2024 Influ rubén virus A and B and SARS- CoV-2 (COVI D-19) and SARS- relat ed CoV RNA panel - Respi rator y syste m speci men by JACOB with probe detec tion human coronavirus oc43 RNA [presence] in specimen by JACOB with probe detection NOT DETECT ED text: not detect ed CORON AVIRU S OC43 PCR (RESP ) NOT DETEC TOSHIA NOT DETEC TOSHIA 09/30 6:18 AM BROK[facility] ASSISTANT [facility] Not Available Not Available 12/08/2024 10:28:59 09/30/20 24 09/30/2024 Influ rubén virus A and B and SARS- CoV-2 (COVI D-19) and SARS- relat ed CoV RNA panel - Respi rator y syste m speci men by JACOB with probe detec tion human metapneumovi teofilo RNA [presence] in nasopharynx by JACOB with probe detection NOT DETECT ED text: not detect ed METAP NEUMO VIRUS PCR (RESP ) NOT DETEC TOSHIA NOT DETEC TOSHIA 09/30 6:18 AM BROKER ASSISTANT [facility] Not Available Not Available 12/08/2024 10:28:59 09/30/20 24 09/30/2024 Influ rubén virus A and B and SARS- CoV-2 (COVI D-19) and SARS- relat ed CoV RNA panel - Respi rator y syste m speci men by JACOB with probe detec tion rhinovirus+e nterovirus RNA [presence] in specimen by JACOB with probe detection DETECT ED text: not detect ed abnormal RHINO VIRUS /ENTE ROVIR US PCR (RESP ) DETEC TOSHIA (A) NOT DETEC TOSHIA 09/30 6:18 AM BROKER ASSISTANT [facility] Not Available Not Available 12/08/2024 10:28:59 12/11/09/30/2024 Influ rubén virus A and B and SARS- CoV-2 (COVI D-19) and SARS- relat ed CoV RNA panel - Respi rator y syste m speci men by JACOB with probe detec tion influenza virus A RNA [presence] in nasopharynx by JACOB with probe detection NOT DETECT ED text: not detect ed INFLU RUBÉN A PCR (RESP ) NOT DETEC TOSHIA NOT DETEC TOSHIA 09/30 6:18 AM BROKER ASSISTANT [facility] Not Available Not Available 12/08/2024 10:28:59 09/30/20 24 09/30/2024 Influ rubén virus A and B and SARS- CoV-2 (COVI D-19) and SARS- relat ed CoV RNA panel - Respi rator y syste m speci men by JACOB with probe detec tion influenza virus B RNA [presence] in nasopharynx by JACOB with probe detection NOT DETECT ED text: not detect ed INFLU RUBÉN B PCR (RESP ) NOT DETEC TOSHIA NOT DETEC TOSHIA 09/30 6:18 AM BROKER ASSISTANT [facility] Not Available Not Available 12/08/2024 10:28:59 09/30/20 24 09/30/2024 Influ rubén virus A and B and SARS- CoV-2 (COVI D-19) and SARS- relat ed CoV RNA panel - Respi rator y syste m speci men by JACOB with probe detec tion parainfluenz a virus 1 RNA [presence] in nasopharynx by JACOB with probe detection NOT DETECT ED text: not detect ed PARAI NFLUE NZA 1 PCR (RESP ) NOT DETEC TOSHIA NOT DETEC TOSHIA 09/30 6:18 AM BROKER ASSISTANT [facility] Not Available Not Available 12/08/2024 10:28:59 09/30/20 24 09/30/2024 Influ rubén virus A and B and SARS- CoV-2 (COVI D-19) and SARS- relat ed CoV RNA panel - Respi rator y syste m speci men by JACOB with probe detec tion parainfluenz a virus 2 RNA [presence] in nasopharynx by JACOB with probe detection NOT DETECT ED text: not detect ed PARAI NFLUE NZA 2 PCR (RESP ) NOT DETEC TOSHIA NOT DETEC TOSHIA 09/30 6:18 AM BROKER ASSISTANT [facility] Not Available Not Available 12/08/2024 10:28:59 09/30/20 24 09/30/2024 Influ rubén virus A and B and SARS- CoV-2 (COVI D-19) and SARS- relat ed CoV RNA panel - Respi rator y syste m speci men by JACOB with probe detec tion parainfluenz a virus 3 RNA [presence] in nasopharynx by JACOB with probe detection NOT DETECT ED text: not detect ed PARAI NFLUE NZA 3 PCR (RESP ) NOT DETEC TOSHIA NOT DETEC TOHSIA 09/30 6:18 AM BROKER ASSISTANT [facility] Not Available Not Available 12/08/2024 10:28:59 09/30/20 24 09/30/2024 Influ rubén virus A and B and SARS- CoV-2 (COVI D-19) and SARS- relat ed CoV RNA panel - Respi rator y syste m speci men by JACOB with probe detec tion parainfluenz a virus 4 RNA [presence] in nasopharynx by JACOB with probe detection NOT DETECT ED text: not detect ed PARAI NFLUE NZA 4 PCR (RESP ) NOT DETEC TOSHIA NOT DETEC TOSHIA 09/30 6:18 AM BROKER ASSISTANT [facility] Not Available Not Available 12/08/2024 10:28:59 09/30/20 24 09/30/2024 Influ rubén virus A and B and SARS- CoV-2 (COVI D-19) and SARS- relat ed CoV RNA panel - Respi rator y syste m speci men by JACOB with probe detec tion respiratory syncytial virus RNA [presence] in nasopharynx by JACOB with probe detection NOT DETECT ED text: not detect ed RSV PCR (RESP ) NOT DETEC TOSHIA NOT DETEC TOSHIA 09/30 6:18 AM BROK[facility] ASSISTANT [facility] Not Available Not Available 12/08/2024 10:28:59 09/30/20 24 09/30/2024 Influ rubén virus A and B and SARS- CoV-2 (COVI D-19) and SARS- relat ed CoV RNA panel - Respi rator y syste m speci men by JACOB with probe detec tion bordetella parapertussi s DNA [presence] in nasopharynx by JACOB with probe detection NOT DETECT ED text: not detect ed B PARAP ERTUS IS PCR (RESP ) NOT DETEC TOSHIA NOT DETEC TOSHIA 09/30 6:18 AM BROK[facility] ASSISTANT [facility] Not Available Not Available 12/08/2024 10:28:59 09/30/20 24 09/30/2024 Influ rubén virus A and B and SARS- CoV-2 (COVI D-19) and SARS- relat ed CoV RNA panel - Respi rator y syste m speci men by JACOB with probe detec tion bordetella pertussis DNA [presence] in nasopharynx by JACOB with probe detection NOT DETECT ED text: not detect ed BORDE TELLA PERTU SSIS PCR (RESP ) NOT DETEC TOSHIA NOT DETEC TOSHIA 09/30 6:18 AM BROKER ASSISTANT [facility] Not Available Not Available 12/08/2024 10:28:59 09/30/20 24 09/30/2024 Influ rubén virus A and B and SARS- CoV-2 (COVI D-19) and SARS- relat ed CoV RNA panel - Respi rator y syste m speci men by JACOB with probe detec tion chlamydophil a pneumoniae DNA [presence] in specimen by JACOB with probe detection NOT DETECT ED text: not detect ed CHLAM YDOPH SHU PNEUM ONIAE PCR (RESP ) NOT DETEC TOSHIA NOT DETEC TOSHIA 09/30 6:18 AM BROKER ASSISTANT [facility] Not Available Not Available 12/08/2024 10:28:59 09/30/20 24 09/30/2024 Influ rubén virus A and B and SARS- CoV-2 (COVI D-19) and SARS- relat ed CoV RNA panel - Respi rator y syste m speci men by JACOB with probe detec tion mycoplasma pneumoniae DNA [presence] in specimen by JACOB with probe detection NOT DETECT ED text: not detect ed MYCOP LASMA PNEUM ONIAE PCR (RESP ) NOT DETEC TOSHIA NOT DETEC TOSHIA 09/30 6:18 AM BROKER ASSISTANT [facility] Not Available Not Available 12/08/2024 10:28:59 09/30/20 24 09/30/2024 Influ rubén virus A and B and SARS- CoV-2 (COVI D-19) and SARS- relat ed CoV RNA panel - Respi rator y syste m speci men by JACOB with probe detec tion sars-cov-2 (covid-19) RNA [presence] in specimen by JACOB with probe detection NOT DETECT ED text: not detect ed CORON AVIRU S SARS COV 2 PCR (RESP ) NOT DETEC TOSHIA NOT DETEC TOSHIA 09/30 6:18 AM BROKER ASSISTANT [facility] Not Available Not Available 12/08/2024 10:28:59 09/30/20 24 09/30/2024 Influ rubén virus A and B and SARS- CoV-2 (COVI D-19) and SARS- relat ed CoV RNA panel - Respi rator y syste m speci men by JACOB with probe detec tion interpretati on and review of laboratory results ABNORM AL Not Available Not Available 10:28:59 09/30/20 24 10/05/2024 Bacte lala ident ified in Blood by Cultu re specimen source identified BLOOD SPEC DESCR IPTIO N BLOOD 09/30 3:25 AM [facility] Not Available Not Available 12/08/2024 10:28:59 09/30/20 24 10/05/2024 Bacte lala ident ified in Blood by Cultu re service comment NO SPECIA L REQUES T SPECI AL REQUE STS NO SPECI AL REQUE ST 09/30 3:25 AM [facility] Not Available Not Available 12/08/2024 10:28:59 09/30/20 24 10/05/2024 Bacte lala ident ified in Blood by Cultu re bacteria identified in specimen by culture NO GROWTH 5 DAYS CULTU RE RESUL T NO GROWT H 5 DAYS 10/05 7:11 AM [facility] Not Available Not Available 12/08/2024 10:28:59 09/30/20 24 09/30/2024 Drugs of abuse panel - Urine by Scree n metho d amphetamine [presence] in urine by screen method NEGATI VE text: negati ve AMPHE TAMIN E (U) NEGAT GABY NEGAT GABY 09/30 5:29 AM [facility] Not Available Not Available 12/08/2024 10:28:59 09/30/20 24 09/30/2024 Drugs of abuse panel - Urine by Scree n metho d barbiturate screen present [identifier] in urine NEGATI VE text: negati ve CRISTO TURAT ES SCREE N (U) NEGAT GABY NEGAT GABY 09/30 5:29 AM [facility] Not Available Not Available 12/08/2024 10:28:59 09/30/20 24 09/30/2024 Drugs of abuse panel - Urine by Scree n metho d benzodiazepi elzbieta [presence] in urine by screen method NEGATI VE text: negati ve BENZO DIAZE PINES SCREE N (U) NEGAT GABY NEGAT GABY 09/30 5:29 AM [facility] Not Available Not Available 12/08/2024 10:28:59 09/30/20 24 09/30/2024 Drugs of abuse panel - Urine by Scree n metho d cannabinoids [presence] in urine by screen method NEGATI VE text: negati ve CANNA BINOI DS SCREE N (U) NEGAT GABY NEGAT GABY 09/30 5:29 AM [facility] Not Available Not Available 12/08/2024 10:28:59 09/30/20 24 09/30/2024 Drugs of abuse panel - Urine by Scree n metho d cocaine [presence] in urine by screen method NEGATI VE text: negati ve COCAI NE METAB OLITE S (U) NEGAT GABY NEGAT GABY 09/30 5:29 AM [facility] Not Available Not Available 12/08/2024 10:28:59 09/30/20 24 09/30/2024 Drugs of abuse panel - Urine by Scree n metho d methadone [presence] in urine NEGATI VE text: negati ve METHA DONE (U) NEGAT GABY NEGAT GABY 09/30 5:29 AM [facility] Not Available Not Available 12/08/2024 10:28:59 09/30/20 24 09/30/2024 Drugs of abuse panel - Urine by Scree n metho d opiates [presence] in urine NEGATI VE text: negati ve OPIAT E SCREE N (U) NEGAT GABY NEGAT GABY 09/30 5:29 AM [facility] Not Available Not Available 12/08/2024 10:28:59 09/30/20 24 09/30/2024 Drugs of abuse panel - Urine by Scree n metho d phencyclidin e [presence] in urine NEGATI VE text: negati ve PHENC YCLID INE PCP (U) NEGAT GABY NEGAT GABY 09/30 5:29 AM [facility] Not Available Not Available 12/08/2024 10:28:59 09/30/20 24 09/30/2024 Drugs of abuse panel - Urine by Scree n metho d creatinine [mass/volume ] in urine 118 text: 39 - 259 mg/dL CREAT ININE (U) 118.0 39 - 259 MG/DL 09/30 5:29 AM [facility] Not Available Not Available 12/08/2024 10:28:59 09/30/20 24 09/30/2024 Urina lysis dipst ick W Refle x Micro scopi c panel - Urine collection method - specimen URINE CLEAN CATCH SPECI MEN TYPE URINE CLEAN CATCH 09/30 4:40 AM [facility] Not Available Not Available 12/08/2024 10:28:59 09/30/20 24 09/30/2024 Urina lysis dipst ick W Refle x Micro scopi c panel - Urine color of urine YELLOW COLOR (U) YELLO W 09/30 5:28 AM [facility] Not Available Not Available 12/08/2024 10:28:59 09/30/20 24 09/30/2024 Urina lysis dipst ick W Refle x Micro scopi c panel - Urine clarity of urine CLEAR TRANS PAREN CY CLEAR 09/30 5:28 AM [facility] Not Available Not Available 12/08/2024 10:28:59 09/30/20 24 09/30/2024 Urina lysis dipst ick W Refle x Micro scopi c panel - Urine specific gravity of urine 1.035 low: 1.001h igh: 1.03 high SPECI FIC GRAVI TY (U) 1.035 (H) 1.001 - 1.030 09/30 5:28 AM [facility] Not Available Not Available 12/08/2024 10:28:59 09/30/20 24 09/30/2024 Urina lysis dipst ick W Refle x Micro scopi c panel - Urine pH of urine 5.5 low: 5high: 9 U PH 5.5 5.0 - 9.0 09/30 5:28 AM [facility] Not Available Not Available 12/08/2024 10:28:59 09/30/20 24 09/30/2024 Urina lysis dipst ick W Refle x Micro scopi c panel - Urine leukocytes [#/volume] in urine by test strip NEGATI VE text: negati ve LEUKO CYTES (U) NEGAT GABY NEGAT GABY 09/30 5:28 AM [facility] Not Available Not Available 12/08/2024 10:28:59 09/30/20 24 09/30/2024 Urina lysis dipst ick W Refle x Micro scopi c panel - Urine nitrite [presence] in urine NEGATI VE text: negati ve NITRI TINA NEGAT GABY NEGAT GABY 09/30 5:28 AM [facility] Not Available Not Available 12/08/2024 10:28:59 09/30/20 24 09/30/2024 Urina lysis dipst ick W Refle x Micro scopi c panel - Urine protein [mass/volume ] in urine by test strip 200 text: <30 mg/dL high PROTE IN RANDO M (U) 200 (H) <30 MG/DL 09/30 5:28 AM [facility] Not Available Not Available 12/08/2024 10:28:59 09/30/20 24 09/30/2024 Urina lysis dipst ick W Refle x Micro scopi c panel - Urine glucose [mass/volume ] in urine >1000 text: normal mg/dL abnormal GLUCO SE (U) >1000 (A) MILTON L MG/DL 09/30 5:28 AM [facility] Not Available Not Available 12/08/2024 10:28:59 09/30/20 24 09/30/2024 Urina lysis dipst ick W Refle x Micro scopi c panel - Urine ketones [mass/volume ] in urine by test strip NEGATI VE text: negati ve mg/dL KETON ES MG/DL (U) NEGAT GABY NEGAT GABY MG/DL 09/30 5:28 AM [facility] Not Available Not Available 12/08/2024 10:28:59 09/30/20 24 09/30/2024 Urina lysis dipst ick W Refle x Micro scopi c panel - Urine urobilinogen [units/volum e] in urine by test strip NORMAL text: normal mg/dL UROBI LINOG EN MILTON L MILTON L MG/DL 09/30 5:28 AM [facility] Not Available Not Available 12/08/2024 10:28:59 09/30/20 24 09/30/2024 Urina lysis dipst ick W Refle x Micro scopi c panel - Urine bilirubin.to doni [mass/volume ] in urine NEGATI VE text: negati ve mg/dL BILIR UBIN (U) NEGAT GABY NEGAT GABY MG/DL 09/30 5:28 AM [facility] Not Available Not Available 12/08/2024 10:28:59 09/30/20 24 09/30/2024 Urina lysis dipst ick W Refle x Micro scopi c panel - Urine erythrocytes [#/volume] in urine by automated test strip TRACE text: negati ve abnormal BLOOD (U) TRACE (A) NEGAT GABY 09/30 5:28 AM [facility] Not Available Not Available 12/08/2024 10:28:59 09/30/20 24 09/30/2024 Urina lysis dipst ick W Refle x Micro scopi c panel - Urine mucus [#/area] in urine sediment by microscopy low power field RARE text: /lpf MUCUS RARE /LPF 09/30 5:28 AM [facility] Not Available Not Available 12/08/2024 10:28:59 09/30/20 24 09/30/2024 Urina lysis dipst ick W Refle x Micro scopi c panel - Urine hyaline casts [#/area] in urine sediment by microscopy low power field FEW text: /lpf HYALI NE CASTS FEW /LPF 09/30 5:28 AM [facility] Not Available Not Available 12/08/2024 10:28:59 09/30/20 24 09/30/2024 Urina lysis dipst ick W Refle x Micro scopi c panel - Urine granular casts [#/area] in urine sediment by microscopy low power field MODERA TE text: none /lpf abnormal GRANU LAR CASTS MODER ATE (A) NONE /LPF 09/30 5:28 AM [facility] Not Available Not Available 12/08/2024 10:28:59 09/30/20 24 09/30/2024 Urina lysis dipst ick W Refle x Micro scopi c panel - Urine leukocytes [#/area] in urine sediment by microscopy high power field 6 text: <6 /hpf high WBC/H PF 6 (H) <6 /HPF 09/30 5:28 AM [facility] Not Available Not Available 12/08/2024 10:28:59 09/30/20 24 09/30/2024 Urina lysis dipst ick W Refle x Micro scopi c panel - Urine erythrocytes [#/area] in urine sediment by microscopy high power field 6 text: <6 /hpf high RBC/H PF 6 (H) <6 /HPF 09/30 5:28 AM [facility] Not Available Not Available 12/08/2024 10:28:59 09/30/20 24 09/30/2024 Urina lysis dipst ick W Refle x Micro scopi c panel - Urine epithelial cells.squamo us [#/area] in urine sediment by microscopy high power field RARE text: /hpf SQUAM OUS EPITH ELIAL S RARE /HPF 09/30 5:28 AM [facility] Not Available Not Available 12/08/2024 10:28:59 09/30/20 24 09/30/2024 Urina lysis dipst ick W Refle x Micro scopi c panel - Urine interpretati on and review of laboratory results ABNORM AL Not Available Not Available 10:28:59 09/30/20 24 09/30/2024 Gas panel - Arter ial blood pH of blood 7.2 low: 7.35hi gh: 7.45 low PH ARTER IAL 7.20 (L) 7.35 - 7.45 09/30 2:38 AM [facility] Not Available Not Available 12/08/2024 10:28:59 09/30/20 24 09/30/2024 Gas panel - Arter ial blood carbon dioxide [partial pressure] in blood 67 text: 35.0 - 45.0 mmHg high PCO2 67.0 (H) 35.0 - 45.0 MMHG 09/30 2:38 AM [facility] Not Available Not Available 12/08/2024 10:28:59 09/30/20 24 09/30/2024 Gas panel - Arter ial blood oxygen [partial pressure] in blood 182 text: 83.0 - 108.0 mmHg high PO2 182.0 (H) 83.0 - 108.0 MMHG 09/30 2:38 AM [facility] Not Available Not Available 12/08/2024 10:28:59 09/30/20 24 09/30/2024 Gas panel - Arter ial blood carbon dioxide, total [moles/volum e] in blood 28.3 text: 19.0 - 24.0 mmol/L high TOTAL CO2 ARTER IAL 28.3 (H) 19.0 - 24.0 MMOL/ L 09/30 2:38 AM [facility] Not [facility] Not Available 12/08/2024 10:28:59 09/30/20 24 09/30/2024 Gas panel - Arter ial blood base deficit in arterial blood 3.3 text: 0.0 - 3.0 mmol/L high BASE DEFIC IT 3.3 (H) 0.0 - 3.0 MMOL/ L 09/30 2:38 AM [facility] Not Available Not Available 12/08/2024 10:28:59 09/30/20 24 09/30/2024 Gas panel - Arter ial blood oxygen saturation in blood 99 % low: 94%hig h: 98% high O2 SATUR ATION 99 (H) 94.0 - 98.0 % 09/30 2:38 AM [facility] Not Available Not Available 12/08/2024 10:28:59 09/30/20 24 09/30/2024 Gas panel - Arter ial blood bicarbonate [moles/volum e] in blood 26.2 text: 21.0 - 28.0 mmol/L BICAR B ARTER IAL 26.2 21.0 - 28.0 MMOL/ L 09/30 2:38 AM [facility] Not Available Not Available 12/08/2024 10:28:59 09/30/20 24 09/30/2024 Gas panel - Arter ial blood service comment 100 O2 ADMIN ARTER IAL 100 09/30 2:35 AM [facility] Not Available Not Available 12/08/2024 10:28:59 09/30/20 24 09/30/2024 Gas panel - Arter ial blood specimen site narrative RT RADIAL DRAW SITE ARTER IAL RT RADIA L 09/30 2:35 AM [facility] Not Available Not Available 12/08/2024 10:28:59 09/30/20 24 09/30/2024 Gas panel - Arter ial blood interpretati on and review of laboratory results ABNORM AL Not Available Not Available 10:28:59 09/30/20 24 09/30/2024 Lacta te [Mole s/vol ume] in Serum or Plasm a lactate [moles/volum e] in serum or plasma 5.2 text: 0.4 - 2.0 mmol/L critical high LACTI C ACID VENOU S 5.2 (HH) 0.4 - 2.0 MMOL/ L 09/30 3:24 AM [facility] Not Available Not Available 12/08/2024 10:28:59 09/30/20 24 09/30/2024 Lacta te [Mole s/vol ume] in Serum or Plasm a interpretati on and review of laboratory results ABNORM AL Not Available Not Available 10:28:59 09/30/20 24 09/30/2024 Natri ureti c pepti de.B proho rmone N-Ter franklyn [Mass /volu me] in Serum or Plasm a natriuretic peptide.B prohormone N-terminal [mass/volume ] in serum or plasma 3849 pg/mL high: 125pg/ mL high PRO-B TYPE NATRI URETI C PEPTI DE 3,849 (H) <125 PG/ML 09/30 3:17 AM [facility] Not Available Not Available 12/08/2024 10:28:59 09/30/20 24 09/30/2024 Natri ureti c pepti de.B proho rmone N-Ter franklyn [Mass /volu me] in Serum or Plasm a interpretati on and review of laboratory results ABNORM AL Not Available Not Available 10:28:59 09/30/20 24 09/30/2024 Thyro tropi n [Unit s/vol ume] in Serum or Plasm a thyrotropin [units/volum e] in serum or plasma 3.57 text: 0.358 - 3.74 uIU/mL TSH 3.570 0.358 - 3.74 uIU/M L 09/30 3:05 AM [facility] Not Available Not Available 12/08/2024 10:28:59 09/30/20 24 09/30/2024 Magne sium [Mass /volu me] in Serum or Plasm a magnesium [mass/volume ] in serum or plasma 2 text: 1.8 - 2.4 mg/dL MAGNE SIUM 2.0 1.8 - 2.4 MG/DL 09/30 3:05 AM [facility] Not Available Not Available 12/08/2024 10:28:59 09/30/20 24 09/30/2024 Compr ehens gaby metab olic 2000 panel - Serum or Plasm a glucose [mass/volume ] in serum or plasma 278 text: 70 - 99 mg/dL high GLUCO SE 278 (H) 70 - 99 MG/DL 09/30 3:05 AM [facility] Not Available Not Available 12/08/2024 10:28:59 09/30/20 24 09/30/2024 Compr ehens gaby metab olic 1999 panel - Serum or Plasm a urea nitrogen [mass/volume ] in serum or plasma 10 text: 7 - 18 mg/dL BUN 10 7 - 18 MG/DL 09/30 3:05 AM [facility] Not Available Not Available 12/08/2024 10:28:59 09/30/20 24 09/30/2024 Compr ehens gaby metab olic 1999 panel - Serum or Plasm a creatinine [mass/volume ] in serum or plasma 0.9 text: 0.7 - 1.3 mg/dL CREAT ININE S/P/B 0.90 0.7 - 1.3 MG/DL 09/30 3:05 AM [facility] Not Available Not Available 12/08/2024 10:28:59 09/30/20 24 09/30/2024 Compr ehens gaby metab olic 1999 panel - Serum or Plasm a sodium [moles/volum e] in serum or plasma 139 text: 136 - 145 mmol/L SODIU M S/P/B 139 136 - 145 MMOL/ L 09/30 3:05 AM [facility] Not Available Not Available 12/08/2024 10:28:59 09/30/20 24 09/30/2024 Compr ehens gaby metab olic 1999 panel - Serum or Plasm a potassium [moles/volum e] in serum or plasma 4.4 text: 3.5 - 5.1 mmol/L POTAS SIUM S/P/B 4.4 3.5 - 5.1 MMOL/ L 09/30 3:05 AM [facility] Not Available Not Available 12/08/2024 10:28:59 09/30/20 24 09/30/2024 Compr ehens gaby metab olic 2000 panel - Serum or Plasm a chloride [moles/volum e] in serum or plasma 107 text: 97 - 115 mmol/L CHLOR KATERIN S/P/B 107 97 - 115 MMOL/ L 09/30 3:05 AM [facility] Not Available Not Available 12/08/2024 10:28:59 09/30/20 24 09/30/2024 Compr ehens gaby metab olic 2000 panel - Serum or Plasm a carbon dioxide, total [moles/volum e] in serum or plasma 22.3 text: 21 - 32 mmol/L CO2 22.3 21 - 32 MMOL/ L 09/30 3:05 AM [facility] Not Available Not Available 12/08/2024 10:28:59 09/30/20 24 09/30/2024 Compr ehens gaby metab olic 1999 panel - Serum or Plasm a calcium [mass/volume ] in serum or plasma 8.6 text: 8.5 - 10.1 mg/dL CALCI UM S/P/B 8.6 8.5 - 10.1 MG/DL 09/30 3:05 AM [facility] Not Available Not Available 12/08/2024 10:28:59 09/30/20 24 09/30/2024 Compr ehens gaby metab olic 2000 panel - Serum or Plasm a bilirubin.to doni [mass/volume ] in serum or plasma 0.3 text: 0.2 - 1.2 mg/dL BILIR UBIN TOTAL S/P/B 0.3 0.2 - 1.2 MG/DL 09/30 3:05 AM [facility] Not Available Not Available 12/08/2024 10:28:59 09/30/20 24 09/30/2024 Compr ehens gaby metab olic 2000 panel - Serum or Plasm a protein [mass/volume ] in serum or plasma 8.1 text: 6.4 - 8.2 g/dL TOTAL PROTE IN S/P/B 8.1 6.4 - 8.2 G/DL 09/30 3:05 AM [facility] Not Available Not Available 12/08/2024 10:28:59 09/30/20 24 09/30/2024 Compr ehens gaby metab olic 2000 panel - Serum or Plasm a albumin [mass/volume ] in serum or plasma 3.5 text: 3.4 - 5.0 g/dL ALBUM IN S/P/B 3.5 3.4 - 5.0 G/DL 09/30 3:05 AM [facility] Not Available Not Available 12/08/2024 10:28:59 09/30/20 24 09/30/2024 Compr ens gaby metab olic 1999 panel - Serum or Plasm a aspartate aminotransfe rase [enzymatic activity/vol ume] in serum or plasma 21 U/L low: 15U/Lh igh: 37U/L AST 21 15 - 37 U/L 09/30 3:05 AM [facility] Not Available Not Available 12/08/2024 10:28:59 09/30/20 24 09/30/2024 Compr ens gaby metab olic 2000 panel - Serum or Plasm a alanine aminotransfe rase [enzymatic activity/vol ume] in serum or plasma 22 U/L low: 16U/Lh igh: 60U/L ALT 22 16 - 60 U/L 09/30 3:05 AM [facility] Not Available Not Available 12/08/2024 10:28:59 09/30/20 24 09/30/[facility] - Serum or Plasm a alkaline phosphatase [enzymatic activity/vol ume] in serum or plasma 126 U/L low: 50U/Lh igh: 136U/L ALKAL INE PHOSP HATAS E S/P/B 126 50 - 136 U/L 09/30 3:05 AM [facility] Not Available Not Available 12/08/2024 10:28:59 09/30/20 24 09/30/2024 Compr ens gaby metab olic 2000 panel - Serum or Plasm a anion gap in serum or plasma 9.7 text: 2 - 10 mmol/L ANION GAP 9.7 2 - 10 MMOL/ L 09/30 3:05 AM [facility] Not Available Not Available 12/08/2024 10:28:59 09/30/20 24 09/30/2024 Compr ehens gaby metab olic 2000 panel - Serum or Plasm a urea nitrogen/cre atinine [mass ratio] in serum or plasma 11.1 low: 6high: 26 BUN CREAT ININE RATIO 11.1 6 - 26 09/30 3:05 AM [facility] Not Available Not Available 12/08/2024 10:28:59 09/30/20 24 09/30/2024 Compr ehens gaby metab olic 2000 panel - Serum or Plasm a albumin/glob ulin [mass ratio] in serum or plasma 0.8 text: 1.0 - 2.0 ratio low A/G RATIO 0.8 (L) 1.0 - 2.0 RATIO 09/30 3:05 AM [facility] Not Available Not Available 12/08/2024 10:28:59 09/30/20 24 09/30/2024 [facility] ehens gaby metab olic 2000 panel - Serum or Plasm a glomerular filtration rate/1.73 sq M.predicted [volume rate/area] in serum, plasma or blood by creatinine-b ased formula (CKD-epi 2020) text: >90 mL/min /1.73 M2 GFR ESTIM ATE >90 >90 ML/WI N/1.7 3 M2 09/30 3:05 AM [facility] Not Available Not Available 12/08/2024 10:28:59 09/30/20 24 09/30/2024 [facility] ehens gaby metab olic 2000 panel - Serum or Plasm a interpretati on and review of laboratory results ABNORM AL Not Available Not Available 10:28:59 09/30/20 24 09/30/2024 aPTT in Plate let poor plasm a by Coagu latio n assay APTT in platelet poor plasma by coagulation assay 25.9 text: 25.1 - 36.5 sec PTT 25.9 25.1 - 36.5 SEC 09/30 3:02 AM [facility] Not Available Not Available 12/08/2024 10:28:58 09/30/20 24 09/30/2024 Proth rombi n time (PT) prothrombin time (PT) 10.1 text: 10.2 - 12.9 sec low PROTI ME 10.1 (L) 10.2 - 12.9 SEC 09/30 3:02 AM [facility] Not Available Not Available 12/08/2024 10:28:58 09/30/20 24 09/30/2024 Proth rombi n time (PT) INR in platelet poor plasma by coagulation assay 0.9 INR 0.9 09/30 3:02 AM [facility] Not Available Not Available 12/08/2024 10:28:58 09/30/20 24 09/30/2024 Proth rombi n time (PT) interpretati on and review of laboratory results ABNORM AL Not Available Not Available 10:28:58 09/30/20 24 09/30/2024 CBC W Auto Diffe renti al panel - Blood leukocytes [#/volume] in blood by automated count 19.27 text: 4.5 - 11.0 x10'3/ uL high WBC 19.27 (H) 4.5 - 11.0 x10'3 /uL 09/30 2:35 AM [facility] Not Available Not Available 12/08/2024 10:28:58 09/30/20 24 09/30/2024 CBC W Auto Diffe renti al panel - Blood erythrocytes [#/volume] in blood by automated count 5.69 text: 4.70 - 6.10 x10'6/ uL RBC 5.69 4.70 - 6.10 x10'6 /uL 09/30 2:35 AM [facility] Not Available Not Available 12/08/2024 10:28:58 09/30/20 24 09/30/2024 CBC W Auto Diffe renti al panel - Blood hemoglobin [mass/volume ] in blood 16.9 text: 14.0 - 18.0 g/dL HGB 16.9 14.0 - 18.0 G/DL 09/30 2:35 AM [facility] Not Available Not Available 12/08/2024 10:28:58 09/30/20 24 09/30/2024 CBC W Auto Diffe renti al panel - Blood hematocrit [volume fraction] of blood 52.4 % low: 43%hig h: 54% HCT 52.4 43.0 - 54.0 % 09/30 2:35 AM [facility] Not Available Not Available 12/08/2024 10:28:58 09/30/20 24 09/30/2024 CBC W Auto Diffe renti al panel - Blood MCV [entitic volume] 92.1 text: 80.0 - 94.0 fL MCV 92.1 80.0 - 94.0 FL 09/30 2:35 AM [facility] Not Available Not Available 12/08/2024 10:28:58 09/30/20 24 09/30/2024 CBC W Auto Diffe renti al panel - Blood MCH [entitic mass] 29.7 pg low: 27pghi gh: 31pg MCH 29.7 27.0 - 31.0 PG 09/30 2:35 AM [facility] Not Available Not Available 12/08/2024 10:28:58 09/30/20 24 09/30/2024 CBC W Auto Diffe renti al panel - Blood MCHC [mass/volume ] 32.3 text: 32.0 - 36.0 g/dL MCHC 32.3 32.0 - 36.0 G/DL 09/30 2:35 AM [facility] Not Available Not Available 12/08/2024 10:28:58 09/30/20 24 09/30/2024 CBC W Auto Diffe renti al panel - Blood erythrocyte distribution width [entitic volume] by automated count 12.3 % low: 11.5%h igh: 14.5% RDW 12.3 11.5 - 14.5 % 09/30 2:35 AM [facility] Not Available Not Available 12/08/2024 10:28:58 09/30/20 24 09/30/2024 CBC W Auto Diffe renti al panel - Blood platelets [#/volume] in blood 330 text: 130 - 400 x10'3/ uL PLT 330 130 - 400 x10'3 /uL 09/30 2:35 AM [facility] Not Available Not Available 12/08/2024 10:28:58 09/30/20 24 09/30/2024 CBC W Auto Diffe renti al panel - Blood platelet mean volume [entitic volume] in blood 9.8 text: 9.3 - 12.2 fL MPV 9.8 9.3 - 12.2 FL 09/30 2:35 AM [facility] Not Available Not Available 12/08/2024 10:28:58 09/30/20 24 09/30/2024 CBC W Auto Diffe renti al panel - Blood differential cell count method - blood MANUAL DIFFER ENTIAL DIFFE RENTI AL TYPE MANUA L DIFFE RENTI AL 09/30 3:10 AM [facility] Not Available Not Available 12/08/2024 10:28:58 09/30/20 24 09/30/2024 CBC W Auto Diffe renti al panel - Blood segmented neutrophils/ 100 leukocytes in blood by manual count 59 % SEG NEUTR OPHIL S 59 % 09/30 3:10 AM [facility] Not Available Not Available 12/08/2024 10:28:58 09/30/20 24 09/30/2024 CBC W Auto Diffe renti al panel - Blood lymphocytes/ 100 leukocytes in blood by manual count 35 % LYMPH OCYTE S 35 % 09/30 3:10 AM [facility] Not Available Not Available 12/08/2024 10:28:58 09/30/20 24 09/30/2024 CBC W Auto Diffe renti al panel - Blood monocytes/10 0 leukocytes in blood by manual count 5 % MONOC YTES 5 % 09/30 3:10 AM [facility] Not Available Not Available 12/08/2024 10:28:58 09/30/20 24 09/30/2024 CBC W Auto Diffe renti al panel - Blood eosinophils/ 100 leukocytes in blood by manual count 1 % EOSIN OPHIL S 1 % 09/30 3:10 AM [facility] Not Available Not Available 12/08/2024 10:28:58 09/30/20 24 09/30/2024 CBC W Auto Diffe renti al panel - Blood neutrophils [#/volume] in blood 11.37 text: 1.80 - 7.70 x10'3/ uL high ABS. NEUTR OPHIL S 11.37 (H) 1.80 - 7.70 x10'3 /uL 09/30 3:10 AM [facility] Not Available Not Available 12/08/2024 10:28:58 09/30/20 24 09/30/2024 CBC W Auto Diffe renti al panel - Blood lymphocytes [#/volume] in blood 6.74 text: 1.00 - 4.80 x10'3/ uL high ABS. LYMPH OCYTE S 6.74 (H) 1.00 - 4.80 x10'3 /uL 09/30 3:10 AM [facility] Not Available Not Available 12/08/2024 10:28:58 09/30/20 24 09/30/2024 CBC W Auto Diffe renti al panel - Blood monocytes [#/volume] in blood 0.96 text: 0.30 - 0.82 x10'3/ uL high ABS. MONOC YTES 0.96 (H) 0.30 - 0.82 x10'3 /uL 09/30 3:10 AM [facility] Not Available Not Available 12/08/2024 10:28:58 09/30/20 24 09/30/2024 CBC W Auto Diffe renti al panel - Blood eosinophils [#/volume] in blood 0.19 text: 0.04 - 0.54 x10'3/ uL ABS. EOSIN OPHIL S 0.19 0.04 - 0.54 x10'3 /uL 09/30 3:10 AM [facility] Not Available Not Available 12/08/2024 10:28:58 09/30/20 24 09/30/2024 CBC W Auto Diffe renti al panel - Blood erythrocytes [morphology] in blood by automated count RBC MORPHO LOGY APPEAR S NORMAL . SLIDE REVIEW ED. RBC MORPH OLOGY RBC MORPH OLOGY APPEA RS MIL[place] L. SLIDE REVIE WED. 09/30 3:10 AM [facility] Not Available Not Available 12/08/2024 10:28:58 09/30/20 24 09/30/2024 CBC W Auto Diffe renti al panel - Blood platelets [#/volume] in blood by automated count ADEQUA TE PLT EST. ADEQU ATE 09/30 3:10 AM [facility] Not Available Not Available 12/08/2024 10:28:58 09/30/20 24 09/30/2024 CBC W Auto Diffe renti al panel - Blood interpretati on and review of laboratory results ABNORM AL Not Available Not Available 10:28:58 09/30/20 24 09/30/2024 Influ rubén virus A+B Ag [Pres ence] in Speci men specimen source identified SWAB SPECI MEN TYPE SWAB 09/30 2:12 AM [facility] Not Available Not Available 12/08/2024 10:28:58 09/30/20 24 09/30/2024 Influ rubén virus A+B Ag [Pres ence] in Speci men influenza virus A Ag [presence] in specimen NEGATI VE text: negati ve INFLU RUBÉN A NEGAT GABY NEGAT GABY 09/30 2:41 AM [facility] Not Available Not Available 12/08/2024 10:28:58 09/30/20 24 09/30/2024 Influ rubén virus A+B Ag [Pres ence] in Speci men haemophilus influenzae B Ag [presence] in specimen NEGATI VE text: negati ve INFLU RUBÉN B NEGAT GABY NEGAT GABY 09/30 2:41 AM [facility] Not Available Not Available 12/08/2024 10:28:58 10/01/20 24 10/01/2024 Gluco se [Mass /volu me] in Blood by Autom ated test strip glucose [mass/volume ] in blood by automated test strip 74 mg/dL low: 70mg/d Lhigh: 99mg/d L GLUCO SE POC 74 70 - 99 mg/dL 10/01 5:38 PM [facility] Not Available Not Available 12/08/2024 10:29:01 10/01/20 24 10/01/2024 Gluco se [Mass /volu me] in Blood by Autom ated test strip glucose [mass/volume ] in blood by automated test strip 160 mg/dL low: 70mg/d Lhigh: 99mg/d L high GLUCO SE POC 160 (H) 70 - 99 mg/dL 10/01 4:25 PM [facility] Not Available Not Available 12/08/2024 10:29:01 10/01/20 24 10/01/2024 Gluco se [Mass /volu me] in Blood by Autom ated test strip interpretati on and review of laboratory results ABNORM AL Not Available Not Available 10:29:01 10/01/20 24 10/03/2024 Bacte lala ident ified in Speci men by Respi rator y cultu re specimen source identified SPUTUM , INDUCE D SPEC DESCR IPTIO N SPUTU M, INDUC ED 10/01 10:28 AM [facility] Not Available Not Available 12/08/2024 10:29:01 10/01/20 24 10/03/2024 Bacte lala ident ified in Speci men by Respi rator y cultu re service comment NO SPECIA L REQUES T SPECI AL REQUE STS NO SPECI AL REQUE ST 10/01 10:28 AM [facility] Not Available Not Available 12/08/2024 10:29:01 10/01/20 24 10/03/2024 Bacte lala ident ified in Speci men by Respi rator y cultu re microscopic observation [identifier] in specimen by gram stain FEW WHITE BLOOD CELLS SEEN GRAM STAIN RESUL T FEW WHITE BLOOD CELLS SEEN 10/02 11:50 AM [facility] Not Available Not Available 12/08/2024 10:29:01 10/01/20 24 10/03/2024 Bacte lala ident ified in Speci men by Respi rator y cultu re microscopic observation [identifier] in specimen by gram stain FEW MIXED BACTER IAL LEYDA GRAM STAIN RESUL T FEW MIXED BACTE RIAL LEYDA 10/02 11:50 AM [facility] Not Available Not Available 12/08/2024 10:29:01 10/01/20 24 10/03/2024 Bacte lala ident ified in Speci men by Respi rator y cultu re microscopic observation [identifier] in specimen by gram stain MANY YEAST GRAM STAIN RESUL T MANY YEAST 10/02 11:50 AM [facility] Not Available Not Available 12/08/2024 10:29:01 10/01/20 24 10/03/2024 Bacte lala ident ified in Speci men by Respi rator y cultu re microscopic observation [identifier] in specimen by gram stain MANY EPITHE LIAL CELLS GRAM STAIN RESUL T MANY EPITH ELIAL CELLS 10/02 11:50 AM [facility] Not Available Not Available 12/08/2024 10:29:01 10/01/20 24 10/03/2024 Bacte lala ident ified in Speci men by Respi rator y cultu re bacteria identified in specimen by culture LIGHT GROWTH OF CANDID A ALBICA NS SUSCEP TIBILT Y NOT ROUTIN MICHAELA PERFOR MED. SAVING ISOLAT E FOR 5 DAYS. CONTAC T MICROB IOLOGY DEPART MENT IF FURTHE R WORKUP IS INDICA TOSHIA. abnormal CULTU RE RESUL T LIGHT GROWT H OF RANDI DA ALBIC ANS SUSCE PTIBI LTY NOT ROUTI NAHUN PERFO RMED. SAVIN G ISOLA TE FOR [address] MICRO BIOLO GY DEPAR TMENT IF FURTH ER EL P IS INDIC ATED. (A) 10/03 7:15 AM [facility] Not Available Not Available 12/08/2024 10:29:10/01/20 24 10/03/2024 Bacte lala ident ified in Speci men by Respi rator y cultu re bacteria identified in specimen by culture ABSENC E OF NORMAL LEYDA. CULTU RE RESUL T ABSEN CE OF MILTON L LEYDA . 10/03 7:15 AM [facility] Not Available Not Available 12/08/2024 10:29:10/01/20 24 10/03/2024 Bacte lala ident ified in Speci men by Respi rator y cultu re interpretati on and review of laboratory results ABNORM AL Not Available Not Available 10:29:10/01/20 24 10/01/2024 Gluco se [Mass /volu me] in Blood by Autom ated test strip glucose [mass/volume ] in blood by automated test strip 207 mg/dL low: 70mg/d Lhigh: 99mg/d L high GLUCO SE POC 207 (H) 70 - 99 mg/dL 10/01 6:13 AM [facility] Not Available Not Available 12/08/2024 10:29:10/01/20 24 10/01/2024 Gluco se [Mass /volu me] in Blood by Autom ated test strip interpretati on and review of laboratory results ABNORM AL Not Available Not Available 10:29:10/01/20 24 10/01/2024 Basic metab olic 2000 panel - Serum or Plasm a glucose [mass/volume ] in serum or plasma 208 text: 70 - 99 mg/dL high GLUCO SE 208 (H) 70 - 99 MG/DL 10/01 5:41 AM [facility] Not Available Not Available 12/08/2024 10:29:01 10/01/20 24 10/01/2024 Basic metab olic 1999 panel - Serum or Plasm a urea nitrogen [mass/volume ] in serum or plasma 26 text: 7 - 18 mg/dL high BUN 26 (H) 7 - 18 MG/DL 10/01 5:41 AM [facility] Not Available Not Available 12/08/2024 10:29:01 10/01/20 24 10/01/2024 Basic metab olic 2000 panel - Serum or Plasm a creatinine [mass/volume ] in serum or plasma 1.07 text: 0.7 - 1.3 mg/dL CREAT ININE S/P/B 1.07 0.7 - 1.3 MG/DL 10/01 5:41 AM [facility] Not Available Not Available 12/08/2024 10:29:01 10/01/20 24 10/01/2024 Basic metab olic 2000 panel - Serum or Plasm a sodium [moles/volum e] in serum or plasma 138 text: 136 - 145 mmol/L SODIU M S/P/B 138 136 - 145 MMOL/ L 10/01 5:41 AM [facility] Not Available Not Available 12/08/2024 10:29:01 10/01/20 24 10/01/2024 Basic metab olic 2000 panel - Serum or Plasm a potassium [moles/volum e] in serum or plasma 4.3 text: 3.5 - 5.1 mmol/L POTAS SIUM S/P/B 4.3 3.5 - 5.1 MMOL/ L 10/01 5:41 AM [facility] Not Available Not Available 12/08/2024 10:29:01 10/01/20 24 10/01/2024 Basic metab olic 2000 panel - Serum or Plasm a chloride [moles/volum e] in serum or plasma 107 text: 97 - 115 mmol/L CHLOR KATERIN S/P/B 107 97 - 115 MMOL/ L 10/01 5:41 AM [facility] Not Available Not Available 12/08/2024 10:29:01 10/01/20 24 10/01/2024 Basic metab olic 2000 panel - Serum or Plasm a carbon dioxide, total [moles/volum e] in serum or plasma 28.4 text: 21 - 32 mmol/L CO2 28.4 21 - 32 MMOL/ L 10/01 5:41 AM [facility] Not Available Not Available 12/08/2024 10:29:01 10/01/20 24 10/01/2024 Basic metab olic 2000 panel - Serum or Plasm a calcium [mass/volume ] in serum or plasma 8.5 text: 8.5 - 10.1 mg/dL CALCI UM S/P/B 8.5 8.5 - 10.1 MG/DL 10/01 5:41 AM [facility] Not Available Not Available 12/08/2024 10:29:01 10/01/20 24 10/01/2024 Basic metab olic 2000 panel - Serum or Plasm a anion gap in serum or plasma 2.6 text: 2 - 10 mmol/L ANION GAP 2.6 2 - 10 MMOL/ L 10/01 5:41 AM [facility] Not Available Not Available 12/08/2024 10:29:01 10/01/20 24 10/01/2024 Basic metab olic 2000 panel - Serum or Plasm a urea nitrogen/cre atinine [mass ratio] in serum or plasma 24.3 low: 6high: 26 BUN CREAT ININE RATIO 24.3 6 - 26 10/01 5:41 AM [facility] Not Available Not Available 12/08/2024 10:29:01 10/01/20 24 10/01/2024 Basic metab olic 2000 panel - Serum or Plasm a glomerular filtration rate/1.73 sq M.predicted [volume rate/area] in serum, plasma or blood by creatinine-b ased formula (CKD-epi 2020) 80 text: >90 mL/min /1.73 M2 low GFR ESTIM ATE 80 (L) >90 ML/WI N/1.7 3 M2 10/01 5:41 AM [facility] Not Available Not Available 12/08/2024 10:29:01 10/01/20 24 10/01/2024 Basic metab olic 2000 panel - Serum or Plasm a interpretati on and review of laboratory results ABNORM AL Not Available Not Available 10:29:10/01/20 24 10/01/2024 CBC W Auto Diffe renti al panel - Blood leukocytes [#/volume] in blood by automated count 18.95 text: 4.5 - 11.0 x10'3/ uL high WBC 18.95 (H) 4.5 - 11.0 x10'3 /uL 10/01 5:41 AM [facility] Not Available Not Available 12/08/2024 10:29:01 10/01/20 24 10/01/2024 CBC W Auto Diffe renti al panel - Blood erythrocytes [#/volume] in blood by automated count 4.55 text: 4.70 - 6.10 x10'6/ uL low RBC 4.55 (L) 4.70 - 6.10 x10'6 /uL 10/01 5:41 AM [facility] Not Available Not Available 12/08/2024 10:29:01 10/01/20 24 10/01/2024 CBC W Auto Diffe renti al panel - Blood hemoglobin [mass/volume ] in blood 13.6 text: 14.0 - 18.0 g/dL low HGB 13.6 (L) 14.0 - 18.0 G/DL 10/01 5:41 AM [facility] Not Available Not Available 12/08/2024 10:29:01 10/01/20 24 10/01/2024 CBC W Auto Diffe renti al panel - Blood hematocrit [volume fraction] of blood 41.3 % low: 43%hig h: 54% low HCT 41.3 (L) 43.0 - 54.0 % 10/01 5:41 AM [facility] Not Available Not Available 12/08/2024 10:29:10/01/20 24 10/01/2024 CBC W Auto Diffe renti al panel - Blood MCV [entitic volume] 90.8 text: 80.0 - 94.0 fL MCV 90.8 80.0 - 94.0 FL 10/01 5:41 AM [facility] Not Available Not Available 12/08/2024 10:29:01 10/01/20 24 10/01/2024 CBC W Auto Diffe renti al panel - Blood MCH [entitic mass] 29.9 pg low: 27pghi gh: 31pg MCH 29.9 27.0 - 31.0 PG 10/01 5:41 AM [facility] Not Available Not Available 12/08/2024 10:29:01 10/01/20 24 10/01/2024 CBC W Auto Diffe renti al panel - Blood MCHC [mass/volume ] 32.9 text: 32.0 - 36.0 g/dL MCHC 32.9 32.0 - 36.0 G/DL 10/01 5:41 AM [facility] Not Available Not Available 12/08/2024 10:29:01 10/01/20 24 10/01/2024 CBC W Auto Diffe renti al panel - Blood erythrocyte distribution width [entitic volume] by automated count 12.7 % low: 11.5%h igh: 14.5% RDW 12.7 11.5 - 14.5 % 10/01 5:41 AM [facility] Not Available Not Available 12/08/2024 10:29:01 12/12/20 24 10/01/2024 CBC W Auto Diffe renti al panel - Blood platelets [#/volume] in blood 271 text: 130 - 400 x10'3/ uL PLT 271 130 - 400 x10'3 /uL 10/01 5:41 AM [facility] Not Available Not Available 12/08/2024 10:29:01 10/01/20 24 10/01/2024 CBC W Auto Diffe renti al panel - Blood platelet mean volume [entitic volume] in blood 9.6 text: 9.3 - 12.2 fL MPV 9.6 9.3 - 12.2 FL 10/01 5:41 AM [facility] Not Available Not Available 12/08/2024 10:29:01 10/01/20 24 10/01/2024 CBC W Auto Diffe renti al panel - Blood differential cell count method - blood MANUAL DIFFER ENTIAL DIFFE RENTI AL TYPE MANUA L DIFFE RENTI AL 10/01 5:42 AM [facility] Not Available Not Available 12/08/2024 10:29:01 10/01/20 24 10/01/2024 CBC W Auto Diffe renti al panel - Blood segmented neutrophils/ 100 leukocytes in blood by manual count 85 % SEG NEUTR OPHIL S 85 % 10/01 5:42 AM [facility] Not Available Not Available 12/08/2024 10:29:01 10/01/20 24 10/01/2024 CBC W Auto Diffe renti al panel - Blood lymphocytes/ 100 leukocytes in blood by manual count 10 % LYMPH OCYTE S 10 % 10/01 5:42 AM [facility] Not Available Not Available 12/08/2024 10:29:01 10/01/20 24 10/01/2024 CBC W Auto Diffe renti al panel - Blood variant lymphocytes/ 100 leukocytes in blood by manual count 1 % ATYP. LYMPH S 1 % 10/01 5:42 AM [facility] Not Available Not Available 12/08/2024 10:29:01 10/01/20 24 10/01/2024 CBC W Auto Diffe renti al panel - Blood monocytes/10 0 leukocytes in blood by manual count 3 % MONOC YTES 3 % 10/01 5:42 AM [facility] Not Available Not Available 12/08/2024 10:29:01 10/01/20 24 10/01/2024 CBC W Auto Diffe renti al panel - Blood band form neutrophils/ 100 leukocytes in blood by manual count 1 % BANDS 1 % 10/01 5:42 AM [facility] Not Available Not Available 12/08/2024 10:29:01 10/01/20 24 10/01/2024 CBC W Auto Diffe renti al panel - Blood neutrophils [#/volume] in blood 16.3 text: 1.80 - 7.70 x10'3/ uL high ABS. NEUTR OPHIL S 16.30 (H) 1.80 - 7.70 x10'3 /uL 10/01 5:42 AM [facility] Not Available Not Available 12/08/2024 10:29:01 10/01/20 24 10/01/2024 CBC W Auto Diffe renti al panel - Blood lymphocytes [#/volume] in blood 2.08 text: 1.00 - 4.80 x10'3/ uL ABS. LYMPH OCYTE S 2.08 1.00 - 4.80 x10'3 /uL 10/01 5:42 AM [facility] Not Available Not Available 12/08/2024 10:29:01 10/01/20 24 10/01/2024 CBC W Auto Diffe renti al panel - Blood monocytes [#/volume] in blood 0.57 text: 0.30 - 0.82 x10'3/ uL ABS. MONOC YTES 0.57 0.30 - 0.82 x10'3 /uL 10/01 5:42 AM [facility] Not Available Not Available 12/08/2024 10:29:01 10/01/20 24 10/01/2024 CBC W Auto Diffe renti al panel - Blood erythrocytes [morphology] in blood by automated count RBC MORPHO LOGY APPEAR S NORMAL . SLIDE REVIEW ED. RBC MORPH OLOGY RBC MORPH OLOGY APPEA RS MILTON L. SLIDE REVIE WED. 10/01 5:42 AM [facility] Not Available Not Available 12/08/2024 10:29:01 10/01/20 24 10/01/2024 CBC W Auto Diffe renti al panel - Blood platelets [#/volume] in blood by automated count ADEQUA TE PLT EST. ADEQU ATE 10/01 5:42 AM [facility] Not Available Not Available 12/08/2024 10:29:01 10/01/20 24 10/01/2024 CBC W Auto Diffe renti al panel - Blood interpretati on and review of laboratory results ABNORM AL Not Available Not Available 10:29:01 10/01/20 24 10/01/2024 Gluco se [Mass /volu me] in Blood by Autom ated test strip glucose [mass/volume ] in blood by automated test strip 194 mg/dL low: 70mg/d Lhigh: 99mg/d L high GLUCO SE POC 194 (H) 70 - 99 mg/dL 10/01 12:29 AM [facility] Not Available Not Available 12/08/2024 10:29:00 10/01/20 24 10/01/2024 Gluco se [Mass /volu me] in Blood by Autom ated test strip interpretati on and review of laboratory results ABNORM AL Not Available Not Available 10:29:00 10/02/20 24 10/02/2024 Gluco se [Mass /volu me] in Blood by Autom ated test strip glucose [mass/volume ] in blood by automated test strip 170 mg/dL low: 70mg/d Lhigh: 99mg/d L high GLUCO SE POC 170 (H) 70 - 99 mg/dL 10/02 8:44 PM [facility] Not Available Not Available 12/08/2024 10:29:02 10/02/20 24 10/02/2024 Gluco se [Mass /volu me] in Blood by Autom ated test strip interpretati on and review of laboratory results ABNORM AL Not Available Not Available 10:29:02 10/02/20 24 10/02/2024 Gluco se [Mass /volu me] in Blood by Autom ated test strip glucose [mass/volume ] in blood by automated test strip 129 mg/dL low: 70mg/d Lhigh: 99mg/d L high GLUCO SE POC 129 (H) 70 - 99 mg/dL 10/02 5:42 PM [facility] Not Available Not Available 12/08/2024 10:29:02 10/02/20 24 10/02/2024 Gluco se [Mass /volu me] in Blood by Autom ated test strip interpretati on and review of laboratory results ABNORM AL Not Available Not Available 10:29:02 10/02/20 24 10/02/2024 Gluco se [Mass /volu me] in Blood by Autom ated test strip glucose [mass/volume ] in blood by automated test strip 159 mg/dL low: 70mg/d Lhigh: 99mg/d L high GLUCO SE POC 159 (H) 70 - 99 mg/dL 10/02 12:20 PM [facility] Not Available Not Available 12/08/2024 10:29:02 10/02/20 24 10/02/2024 Gluco se [Mass /volu me] in Blood by Autom ated test strip interpretati on and review of laboratory results ABNORM AL Not Available Not Available 10:29:02 10/02/20 24 10/02/2024 Zeenat barrios compl ete panel - Urine collection method - specimen URINE CHAVARRIA CATH SPECI MEN TYPE URINE CHAVARRIA CATH 10/02 7:26 AM [facility] Not Available Not Available 12/08/2024 10:29:02 10/02/20 24 10/02/2024 Urina lysis compl ete panel - Urine color of urine LIGHT ORANGE COLOR (U) LIGHT ORANG E 10/02 8:46 AM [facility] Not Available Not Available 12/08/2024 10:29:02 10/02/20 24 10/02/2024 Urina lysis compl ete panel - Urine clarity of urine TURBID TRANS PAREN CY TURBI D 10/02 8:46 AM [facility] Not Available Not Available 12/08/2024 10:29:02 10/02/20 24 10/02/2024 Urina lysis compl ete panel - Urine specific gravity of urine 1.013 low: 1.001h igh: 1.03 SPECI FIC GRAVI TY (U) 1.013 1.001 - 1.030 10/02 8:46 AM [facility] Not Available Not Available 12/08/2024 10:29:02 10/02/20 24 10/02/2024 Urina lysis compl ete panel - Urine pH of urine 7 low: 5high: 9 U PH 7.0 5.0 - 9.0 10/02 8:46 AM [facility] Not Available Not Available 12/08/2024 10:29:02 10/02/20 24 10/02/2024 Urina lysis compl ete panel - Urine leukocytes [#/volume] in urine by test strip NEGATI VE text: negati ve LEUKO CYTES (U) NEGAT GABY NEGAT GABY 10/02 8:46 AM [facility] Not Available Not Available 12/08/2024 10:29:02 10/02/20 24 10/02/2024 Urina lysis compl ete panel - Urine nitrite [presence] in urine NEGATI VE text: negati ve NITRI TINA NEGAT GABY NEGAT GABY 10/02 8:46 AM [facility] Not Available Not Available 12/08/2024 10:29:02 10/02/20 24 10/02/2024 Urina lysis compl ete panel - Urine protein [mass/volume ] in urine by test strip 10 text: <30 mg/dL PROTE IN RANDO M (U) 10 <30 MG/DL 10/02 8:46 AM [facility] Not Available Not Available 12/08/2024 10:29:02 10/02/20 24 10/02/2024 Urina lysis compl ete panel - Urine glucose [mass/volume ] in urine NORMAL text: normal mg/dL GLUCO SE (U) MILTON L MILTON L MG/DL 10/02 8:46 AM [facility] Not Available Not Available 12/08/2024 10:29:02 10/02/20 24 10/02/2024 Urina lysis compl ete panel - Urine ketones [mass/volume ] in urine by test strip 10 text: negati ve mg/dL abnormal KETON ES MG/DL (U) 10 (A) NEGAT GABY MG/DL 10/02 8:46 AM [facility] Not Available Not Available 12/08/2024 10:29:02 10/02/20 24 10/02/2024 Urina lysis compl ete panel - Urine urobilinogen [units/volum e] in urine by test strip 2 text: normal mg/dL abnormal UROBI LINOG EN 2.0 (A) MILTON L MG/DL 10/02 8:46 AM [facility] Not Available Not Available 12/08/2024 10:29:02 10/02/20 24 10/02/2024 Urina lysis compl ete panel - Urine bilirubin.to doni [mass/volume ] in urine NEGATI VE text: negati ve mg/dL BILIR UBIN (U) NEGAT GABY NEGAT GABY MG/DL 10/02 8:46 AM [facility] Not Available Not Available 12/08/2024 10:29:02 10/02/20 24 10/02/2024 Urina lysis compl ete panel - Urine erythrocytes [#/volume] in urine by automated test strip 3+ text: negati ve abnormal BLOOD (U) 3+ (A) NEGAT GABY 10/02 8:46 AM [facility] Not Available Not Available 12/08/2024 10:29:02 10/02/20 24 10/02/2024 Urina lysis compl ete panel - Urine leukocytes [#/area] in urine sediment by microscopy high power field 3 text: <6 /hpf WBC/H PF 3 <6 /HPF 10/02 8:46 AM [facility] Not Available Not Available 12/08/2024 10:29:02 10/02/20 24 10/02/2024 Urina lysis compl ete panel - Urine erythrocytes [#/area] in urine sediment by microscopy high power field >100 text: <6 /hpf high RBC/H PF >100 (H) <6 /HPF 10/02 8:46 AM [facility] Not Available Not Available 12/08/2024 10:29:02 10/02/20 24 10/02/2024 Urina lysis compl ete panel - Urine interpretati on and review of laboratory results ABNORM AL Not Available Not Available 10:29:02 10/02/20 24 10/02/2024 Basic metab olic 2000 panel - Serum or Plasm a glucose [mass/volume ] in serum or plasma 147 text: 70 - 99 mg/dL high GLUCO SE 147 (H) 70 - 99 MG/DL 10/02 6:22 AM [facility] Not Available Not Available 12/08/2024 10:29:01 10/02/20 24 10/02/2024 Basic metab olic 2000 panel - Serum or Plasm a urea nitrogen [mass/volume ] in serum or plasma 21 text: 7 - 18 mg/dL high BUN 21 (H) 7 - 18 MG/DL 10/02 6:22 AM [facility] Not Available Not Available 12/08/2024 10:29:01 10/02/20 24 10/02/2024 Basic metab olic 2000 panel - Serum or Plasm a creatinine [mass/volume ] in serum or plasma 0.79 text: 0.7 - 1.3 mg/dL CREAT ININE S/P/B 0.79 0.7 - 1.3 MG/DL 10/02 6:22 AM [facility] Not Available Not Available 12/08/2024 10:29:01 10/02/20 24 10/02/2024 Basic metab olic 2000 panel - Serum or Plasm a sodium [moles/volum e] in serum or plasma 136 text: 136 - 145 mmol/L SODIU M S/P/B 136 136 - 145 MMOL/ L 10/02 6:22 AM [facility] Not Available Not Available 12/08/2024 10:29:01 10/02/20 24 10/02/2024 Basic metab olic 2000 panel - Serum or Plasm a potassium [moles/volum e] in serum or plasma 3.8 text: 3.5 - 5.1 mmol/L POTAS SIUM S/P/B 3.8 3.5 - 5.1 MMOL/ L 10/02 6:22 AM [facility] Not Available Not Available 12/08/2024 10:29:01 10/02/20 24 10/02/2024 Basic metab olic 1999 panel - Serum or Plasm a chloride [moles/volum e] in serum or plasma 104 text: 97 - 115 mmol/L CHLOR KATERIN S/P/B 104 97 - 115 MMOL/ L 10/02 6:22 AM [facility] Not Available Not Available 12/08/2024 10:29:01 10/02/20 24 10/02/2024 Basic metab olic 2000 panel - Serum or Plasm a carbon dioxide, total [moles/volum e] in serum or plasma 26.4 text: 21 - 32 mmol/L CO2 26.4 21 - 32 MMOL/ L 10/02 6:22 AM [facility] Not Available Not Available 12/08/2024 10:29:01 10/02/20 24 10/02/2024 Basic metab olic 1999 panel - Serum or Plasm a calcium [mass/volume ] in serum or plasma 8.5 text: 8.5 - 10.1 mg/dL CALCI UM S/P/B 8.5 8.5 - 10.1 MG/DL 10/02 6:22 AM [facility] Not Available Not Available 12/08/2024 10:29:01 10/02/20 24 10/02/2024 Basic metab olic 1999 panel - Serum or Plasm a anion gap in serum or plasma 5.6 text: 2 - 10 mmol/L ANION GAP 5.6 2 - 10 MMOL/ L 10/02 6:22 AM [facility] Not Available Not Available 12/08/2024 10:29:01 10/02/20 24 10/02/2024 Basic metab olic 1999 panel - Serum or Plasm a urea nitrogen/cre atinine [mass ratio] in serum or plasma 26.6 low: 6high: 26 high BUN CREAT ININE RATIO 26.6 (H) 6 - 26 10/02 6:22 AM [facility] Not Available Not Available 12/08/2024 10:29:01 10/02/20 24 10/02/2024 Basic metab olic 2000 panel - Serum or Plasm a glomerular filtration rate/1.73 sq M.predicted [volume rate/area] in serum, plasma or blood by creatinine-b ased formula (CKD-epi 2020) text: >90 mL/min /1.73 M2 GFR ESTIM ATE >90 >90 ML/WI N/1.7 3 M2 10/02 6:22 AM [facility] Not Available Not Available 12/08/2024 10:29:01 10/02/20 24 10/02/2024 Basic metab olic 2000 panel - Serum or Plasm a interpretati on and review of laboratory results ABNORM AL Not Available Not Available 10:29:01 10/02/20 24 10/02/2024 CBC W Auto Diffe renti al panel - Blood leukocytes [#/volume] in blood by automated count 13.3 text: 4.5 - 11.0 x10'3/ uL high WBC 13.30 (H) 4.5 - 11.0 x10'3 /uL 10/02 6:06 AM [facility] Not Available Not Available 12/08/2024 10:29:01 10/02/20 24 10/02/2024 CBC W Auto Diffe renti al panel - Blood erythrocytes [#/volume] in blood by automated count 4.87 text: 4.70 - 6.10 x10'6/ uL RBC 4.87 4.70 - 6.10 x10'6 /uL 10/02 6:06 AM [facility] Not Available Not Available 12/08/2024 10:29:01 10/02/20 24 10/02/2024 CBC W Auto Diffe renti al panel - Blood hemoglobin [mass/volume ] in blood 14.5 text: 14.0 - 18.0 g/dL HGB 14.5 14.0 - 18.0 G/DL 10/02 6:06 AM [facility] Not Available Not Available 12/08/2024 10:29:01 10/02/20 24 10/02/2024 CBC W Auto Diffe renti al panel - Blood hematocrit [volume fraction] of blood 43.3 % low: 43%hig h: 54% HCT 43.3 43.0 - 54.0 % 10/02 6:06 AM [facility] Not Available Not Available 12/08/2024 10:29:01 10/02/20 24 10/02/2024 CBC W Auto Diffe renti al panel - Blood MCV [entitic volume] 88.9 text: 80.0 - 94.0 fL MCV 88.9 80.0 - 94.0 FL 10/02 6:06 AM [facility] Not Available Not Available 12/08/2024 10:29:10/02/2010/02/2024 CBC W Auto Diffe renti al panel - Blood MCH [entitic mass] 29.8 pg low: 27pghi gh: 31pg MCH 29.8 27.0 - 31.0 PG 10/02 6:06 AM [facility] Not Available Not Available 12/08/2024 10:29:01 10/02/2010/02/2024 CBC W Auto Diffe renti al panel - Blood MCHC [mass/volume ] 33.5 text: 32.0 - 36.0 g/dL MCHC 33.5 32.0 - 36.0 G/DL 10/02 6:06 AM [facility] Not Available Not Available 12/08/2024 10:29:10/02/2010/02/2024 CBC W Auto Diffe renti al panel - Blood erythrocyte distribution width [entitic volume] by automated count 12.5 % low: 11.5%h igh: 14.5% RDW 12.5 11.5 - 14.5 % 10/02 6:06 AM [facility] Not Available Not Available 12/08/2024 10:29:10/02/2010/02/2024 CBC W Auto Diffe renti al panel - Blood platelets [#/volume] in blood 210 text: 130 - 400 x10'3/ uL PLT 210 130 - 400 x10'3 /uL 10/02 6:06 AM [facility] Not Available Not Available 12/08/2024 10:29:10/02/20 24 10/02/2024 CBC W Auto Diffe renti al panel - Blood platelet mean volume [entitic volume] in blood 9.6 text: 9.3 - 12.2 fL MPV 9.6 9.3 - 12.2 FL 10/02 6:06 AM [facility] Not Available Not Available 12/08/2024 10:29:01 10/02/20 24 10/02/2024 CBC W Auto Diffe renti al panel - Blood differential cell count method - blood AUTOMA TOSHIA DIFFER ENTIAL DIFFE RENTI AL TYPE AUTOM ATED DIFFE RENTI AL 10/02 6:06 AM [facility] Not Available Not Available 12/08/2024 10:29:01 10/02/20 24 10/02/2024 CBC W Auto Diffe renti al panel - Blood neutrophils/ 100 leukocytes in blood by automated count 77.9 % NEUTR OPHIL S % 77.9 % 10/02 6:06 AM [facility] Not Available Not Available 12/08/2024 10:29:01 10/02/20 24 10/02/2024 CBC W Auto Diffe renti al panel - Blood lymphocytes/ 100 leukocytes in blood by automated count 15.1 % LYMPH OCYTE S % 15.1 % 10/02 6:06 AM [facility] Not Available Not Available 12/08/2024 10:29:01 10/02/20 24 10/02/2024 CBC W Auto Diffe renti al panel - Blood monocytes/10 0 leukocytes in blood by automated count 6 % MONOC YTES % 6.0 % 10/02 6:06 AM [facility] Not Available Not Available 12/08/2024 10:29:01 10/02/20 24 10/02/2024 CBC W Auto Diffe renti al panel - Blood eosinophils/ 100 leukocytes in blood by automated count 0.4 % EOSIN OPHIL S 0.4 % 10/02 6:06 AM [facility] Not Available Not Available 12/08/2024 10:29:01 10/02/20 24 10/02/2024 CBC W Auto Diffe renti al panel - Blood basophils/10 0 leukocytes in blood by automated count 0.2 % BASOP HILS 0.2 % 10/02 6:06 AM [facility] Not Available Not Available 12/08/2024 10:29:01 10/02/20 24 10/02/2024 CBC W Auto Diffe renti al panel - Blood immature granulocytes /100 leukocytes in blood by automated count 0.4 % IMMAT URE GRANS % 0.4 % 10/02 6:06 AM [facility] Not Available Not Available 12/08/2024 10:29:01 10/02/20 24 10/02/2024 CBC W Auto Diffe renti al panel - Blood neutrophils [#/volume] in blood 10.37 text: 1.80 - 7.70 x10'3/ uL high ABS. NEUTR OPHIL S 10.37 (H) 1.80 - 7.70 x10'3 /uL 10/02 6:06 AM [facility] Not Available Not Available 12/08/2024 10:29:01 10/02/20 24 10/02/2024 CBC W Auto Diffe renti al panel - Blood lymphocytes [#/volume] in blood 2.01 text: 1.00 - 4.80 x10'3/ uL ABS. LYMPH OCYTE S 2.01 1.00 - 4.80 x10'3 /uL 10/02 6:06 AM [facility] Not Available Not Available 12/08/2024 10:29:01 10/02/20 24 10/02/2024 CBC W Auto Diffe renti al panel - Blood monocytes [#/volume] in blood 0.8 text: 0.30 - 0.82 x10'3/ uL ABS. MONOC YTES 0.80 0.30 - 0.82 x10'3 /uL 10/02 6:06 AM [facility] Not Available Not Available 12/08/2024 10:29:01 10/02/20 24 10/02/2024 CBC W Auto Diffe renti al panel - Blood eosinophils [#/volume] in blood 0.05 text: 0.04 - 0.54 x10'3/ uL ABS. EOSIN OPHIL S 0.05 0.04 - 0.54 x10'3 /uL 10/02 6:06 AM [facility] Not Available Not Available 12/08/2024 10:29:01 10/02/20 24 10/02/2024 CBC W Auto Diffe renti al panel - Blood basophils [#/volume] in blood 0.02 text: 0.01 - 0.08 x10'3/ uL ABS. BASOP HILS 0.02 0.01 - 0.08 x10'3 /uL 10/02 6:06 AM [facility] Not Available Not Available 12/08/2024 10:29:01 10/02/20 24 10/02/2024 CBC W Auto Diffe renti al panel - Blood immature granulocytes [#/volume] in blood 0.05 text: 0.00 - 0.49 x10'3/ uL ABS. IMMAT URE GRANU LOCYT ES 0.05 0.00 - 0.49 x10'3 /uL 10/02 6:06 AM [facility] Not Available Not Available 12/08/2024 10:29:01 10/02/20 24 10/02/2024 CBC W Auto Diffe renti al panel - Blood interpretati on and review of laboratory results ABNORM AL Not Available Not Available 10:29:01 10/02/20 24 10/02/2024 Gluco se [Mass /volu me] in Blood by Autom ated test strip glucose [mass/volume ] in blood by automated test strip 138 mg/dL low: 70mg/d Lhigh: 99mg/d L high GLUCO SE POC 138 (H) 70 - 99 mg/dL 10/01 11:40 PM [facility] Not Available Not Available 12/08/2024 10:29:01 10/02/20 24 10/02/2024 Gluco se [Mass /volu me] in Blood by Autom ated test strip interpretati on and review of laboratory results ABNORM AL Not Available Not Available 10:29:01 10/03/20 24 10/03/2024 Gluco se [Mass /volu me] in Blood by Autom ated test strip glucose [mass/volume ] in blood by automated test strip 163 mg/dL low: 70mg/d Lhigh: 99mg/d L high GLUCO SE POC 163 (H) 70 - 99 mg/dL 10/03 12:27 PM [facility] Not Available Not Available 12/08/2024 10:29:02 10/03/20 24 10/03/2024 Gluco se [Mass /volu me] in Blood by Autom ated test strip interpretati on and review of laboratory results ABNORM AL Not Available Not Available 10:29:02 10/03/20 24 10/03/2024 Gluco se [Mass /volu me] in Blood by Autom ated test strip glucose [mass/volume ] in blood by automated test strip 144 mg/dL low: 70mg/d Lhigh: 99mg/d L high GLUCO SE POC 144 (H) 70 - 99 mg/dL 10/03 7:57 AM [facility] Not Available Not Available 12/08/2024 10:29:02 10/03/20 24 10/03/2024 Gluco se [Mass /volu me] in Blood by Autom ated test strip interpretati on and review of laboratory results ABNORM AL Not Available Not Available 10:29:02 10/03/20 24 10/03/2024 CBC W Auto Diffe renti al panel - Blood leukocytes [#/volume] in blood by automated count 9.26 text: 4.5 - 11.0 x10'3/ uL WBC 9.26 4.5 - 11.0 x10'3 /uL 10/03 4:46 AM [facility] Not Available Not Available 12/08/2024 10:29:02 10/03/20 24 10/03/2024 CBC W Auto Diffe renti al panel - Blood erythrocytes [#/volume] in blood by automated count 4.95 text: 4.70 - 6.10 x10'6/ uL RBC 4.95 4.70 - 6.10 x10'6 /uL 10/03 4:46 AM [facility] Not Available Not Available 12/08/2024 10:29:02 10/03/20 24 10/03/2024 CBC W Auto Diffe renti al panel - Blood hemoglobin [mass/volume ] in blood 14.4 text: 14.0 - 18.0 g/dL HGB 14.4 14.0 - 18.0 G/DL 10/03 4:46 AM [facility] Not Available Not Available 12/08/2024 10:29:02 10/03/20 24 10/03/2024 CBC W Auto Diffe renti al panel - Blood hematocrit [volume fraction] of blood 43 % low: 43%hig h: 54% HCT 43.0 43.0 - 54.0 % 10/03 4:46 AM [facility] Not Available Not Available 12/08/2024 10:29:02 10/03/20 24 10/03/2024 CBC W Auto Diffe renti al panel - Blood MCV [entitic volume] 86.9 text: 80.0 - 94.0 fL MCV 86.9 80.0 - 94.0 FL 10/03 4:46 AM [facility] Not Available Not Available 12/08/2024 10:29:02 10/03/20 24 10/03/2024 CBC W Auto Diffe renti al panel - Blood MCH [entitic mass] 29.1 pg low: 27pghi gh: 31pg MCH 29.1 27.0 - 31.0 PG 10/03 4:46 AM [facility] Not Available Not Available 12/08/2024 10:29:02 10/03/20 24 10/03/2024 CBC W Auto Diffe renti al panel - Blood MCHC [mass/volume ] 33.5 text: 32.0 - 36.0 g/dL MCHC 33.5 32.0 - 36.0 G/DL 10/03 4:46 AM [facility] Not Available Not Available 12/08/2024 10:29:02 10/03/20 24 10/03/2024 CBC W Auto Diffe renti al panel - Blood erythrocyte distribution width [entitic volume] by automated count 12.2 % low: 11.5%h igh: 14.5% RDW 12.2 11.5 - 14.5 % 10/03 4:46 AM [facility] Not Available Not Available 12/08/2024 10:29:02 10/03/20 24 10/03/2024 CBC W Auto Diffe renti al panel - Blood platelets [#/volume] in blood 203 text: 130 - 400 x10'3/ uL PLT 203 130 - 400 x10'3 /uL 10/03 4:46 AM [facility] Not Available Not Available 12/08/2024 10:29:02 10/03/20 24 10/03/2024 CBC W Auto Diffe renti al panel - Blood platelet mean volume [entitic volume] in blood 9.6 text: 9.3 - 12.2 fL MPV 9.6 9.3 - 12.2 FL 10/03 4:46 AM [facility] Not Available Not Available 12/08/2024 10:29:02 10/03/20 24 10/03/2024 CBC W Auto Diffe renti al panel - Blood differential cell count method - blood AUTOMA TOSHIA DIFFER ENTIAL DIFFE RENTI AL TYPE AUTOM ATED DIFFE RENTI AL 10/03 4:46 AM [facility] Not Available Not Available 12/08/2024 10:29:02 10/03/20 24 10/03/2024 CBC W Auto Diffe renti al panel - Blood neutrophils/ 100 leukocytes in blood by automated count 71.7 % NEUTR OPHIL S % 71.7 % 10/03 4:46 AM [facility] Not Available Not Available 12/08/2024 10:29:02 10/03/20 24 10/03/2024 CBC W Auto Diffe renti al panel - Blood lymphocytes/ 100 leukocytes in blood by automated count 19.2 % LYMPH OCYTE S % 19.2 % 10/03 4:46 AM [facility] Not Available Not Available 12/08/2024 10:29:02 10/03/20 24 10/03/2024 CBC W Auto Diffe renti al panel - Blood monocytes/10 0 leukocytes in blood by automated count 7.1 % MONOC YTES % 7.1 % 10/03 4:46 AM [facility] Not Available Not Available 12/08/2024 10:29:02 10/03/20 24 10/03/2024 CBC W Auto Diffe renti al panel - Blood eosinophils/ 100 leukocytes in blood by automated count 1.5 % EOSIN OPHIL S 1.5 % 10/03 4:46 AM [facility] Not Available Not Available 12/08/2024 10:29:02 10/03/20 24 10/03/2024 CBC W Auto Diffe renti al panel - Blood basophils/10 0 leukocytes in blood by automated count 0.2 % BASOP HILS 0.2 % 10/03 4:46 AM [facility] Not Available Not Available 12/08/2024 10:29:02 10/03/20 24 10/03/2024 CBC W Auto Diffe renti al panel - Blood immature granulocytes /100 leukocytes in blood by automated count 0.3 % IMMAT URE GRANS % 0.3 % 10/03 4:46 AM [facility] Not Available Not Available 12/08/2024 10:29:02 10/03/20 24 10/03/2024 CBC W Auto Diffe renti al panel - Blood neutrophils [#/volume] in blood 6.63 text: 1.80 - 7.70 x10'3/ uL ABS. NEUTR OPHIL S 6.63 1.80 - 7.70 x10'3 /uL 10/03 4:46 AM [facility] Not Available Not Available 12/08/2024 10:29:02 10/03/20 24 10/03/2024 CBC W Auto Diffe renti al panel - Blood lymphocytes [#/volume] in blood 1.78 text: 1.00 - 4.80 x10'3/ uL ABS. LYMPH OCYTE S 1.78 1.00 - 4.80 x10'3 /uL 10/03 4:46 AM [facility] Not Available Not Available 12/08/2024 10:29:02 10/03/20 24 10/03/2024 CBC W Auto Diffe renti al panel - Blood monocytes [#/volume] in blood 0.66 text: 0.30 - 0.82 x10'3/ uL ABS. MONOC YTES 0.66 0.30 - 0.82 x10'3 /uL 10/03 4:46 AM [facility] Not Available Not Available 12/08/2024 10:29:02 10/03/20 24 10/03/2024 CBC W Auto Diffe renti al panel - Blood eosinophils [#/volume] in blood 0.14 text: 0.04 - 0.54 x10'3/ uL ABS. EOSIN OPHIL S 0.14 0.04 - 0.54 x10'3 /uL 10/03 4:46 AM [facility] Not Available Not Available 12/08/2024 10:29:02 10/03/20 24 10/03/2024 CBC W Auto Diffe renti al panel - Blood basophils [#/volume] in blood 0.02 text: 0.01 - 0.08 x10'3/ uL ABS. BASOP HILS 0.02 0.01 - 0.08 x10'3 /uL 10/03 4:46 AM [facility] Not Available Not Available 12/08/2024 10:29:02 10/03/20 24 10/03/2024 CBC W Auto Diffe renti al panel - Blood immature granulocytes [#/volume] in blood 0.03 text: 0.00 - 0.49 x10'3/ uL ABS. IMMAT URE GRANU LOCYT ES 0.03 0.00 - 0.49 x10'3 /uL 10/03 4:46 AM [facility] Not Available Not Available 12/08/2024 10:29:02 10/03/20 24 10/03/2024 Basic metab olic 1999 panel - Serum or Plasm a glucose [mass/volume ] in serum or plasma 160 text: 70 - 99 mg/dL high GLUCO SE 160 (H) 70 - 99 MG/DL 10/03 5:13 AM [facility] Not Available Not Available 12/08/2024 10:29:02 10/03/20 24 10/03/2024 Basic metab olic 1999 panel - Serum or Plasm a urea nitrogen [mass/volume ] in serum or plasma 18 text: 7 - 18 mg/dL BUN 18 7 - 18 MG/DL 10/03 5:13 AM [facility] Not Available Not Available 12/08/2024 10:29:02 10/03/20 24 10/03/2024 Basic metab olic 1999 panel - Serum or Plasm a creatinine [mass/volume ] in serum or plasma 0.74 text: 0.7 - 1.3 mg/dL CREAT ININE S/P/B 0.74 0.7 - 1.3 MG/DL 10/03 5:13 AM [facility] Not Available Not Available 12/08/2024 10:29:02 10/03/20 24 10/03/2024 Basic metab olic 2000 panel - Serum or Plasm a sodium [moles/volum e] in serum or plasma 135 text: 136 - 145 mmol/L low SODIU M S/P/B 135 (L) 136 - 145 MMOL/ L 10/03 5:13 AM [facility] Not Available Not Available 12/08/2024 10:29:02 10/03/20 24 10/03/2024 Basic metab olic 2000 panel - Serum or Plasm a potassium [moles/volum e] in serum or plasma 3.9 text: 3.5 - 5.1 mmol/L POTAS SIUM S/P/B 3.9 3.5 - 5.1 MMOL/ L 10/03 5:13 AM [facility] Not Available Not Available 12/08/2024 10:29:02 10/03/20 24 10/03/2024 Basic metab olic 2000 panel - Serum or Plasm a chloride [moles/volum e] in serum or plasma 107 text: 97 - 115 mmol/L CHLOR KATERIN S/P/B 107 97 - 115 MMOL/ L 10/03 5:13 AM [facility] Not Available Not Available 12/08/2024 10:29:02 10/03/20 24 10/03/2024 Basic metab olic 2000 panel - Serum or Plasm a carbon dioxide, total [moles/volum e] in serum or plasma 25.6 text: 21 - 32 mmol/L CO2 25.6 21 - 32 MMOL/ L 10/03 5:13 AM [facility] Not Available Not Available 12/08/2024 10:29:02 10/03/20 24 10/03/2024 Basic metab olic 2000 panel - Serum or Plasm a calcium [mass/volume ] in serum or plasma 8.5 text: 8.5 - 10.1 mg/dL CALCI UM S/P/B 8.5 8.5 - 10.1 MG/DL 10/03 5:13 AM [facility] Not Available Not Available 12/08/2024 10:29:02 10/03/20 24 10/03/2024 Basic metab olic 2000 panel - Serum or Plasm a anion gap in serum or plasma 2.4 text: 2 - 10 mmol/L ANION GAP 2.4 2 - 10 MMOL/ L 10/03 5:13 AM [facility] Not Available Not Available 12/08/2024 10:29:02 10/03/20 24 10/03/2024 Basic metab olic 2000 panel - Serum or Plasm a urea nitrogen/cre atinine [mass ratio] in serum or plasma 24.3 low: 6high: 26 BUN CREAT ININE RATIO 24.3 6 - 26 10/03 5:13 AM [facility] Not Available Not Available 12/08/2024 10:29:02 10/03/20 24 10/03/2024 Basic metab olic 2000 panel - Serum or Plasm a glomerular filtration rate/1.73 sq M.predicted [volume rate/area] in serum, plasma or blood by creatinine-b ased formula (CKD-epi 2020) text: >90 mL/min /1.73 M2 GFR ESTIM ATE >90 >90 ML/WI N/1.7 3 M2 10/03 5:13 AM [facility] Not Available Not Available 12/08/2024 10:29:02 10/03/20 24 10/03/2024 Basic metab olic 2000 panel - Serum or Plasm a interpretati on and review of laboratory results ABNORM AL Not Available Not Available 10:29:02 11/02/19 25 11/02/2024 HbA1c (hemo globi n A1c), blood HbA1c 10.1 Not Available In-Office Order Internal Use Only DO Not Attach Compendium DO Not Attach Compendium, Do Not Delete/merge, [id number] 11/02/2024 15:46:52 12/22/19 25 12/22/2024 VITAM IN B12 AND FOLAT E vitamin B12 266 pg/mL 232-12 45 Not Available [facility]) [address] [facility], [place], [address], 12/22/2024 10:15:31 12/22/19 25 12/22/2024 VITAM IN B12 AND FOLAT E folate (folic acid), serum 3.2 NG/mL >3.0 A serum folat e lexie ntrat ion of less than 3.1 ng/mL is consi dered to repre sent clini wilmer defic iency . Not Available [facility] ([facility]) [address] [facility], [place], [address], 12/22/2024 10:15:31 12/22/19 25 12/22/2024 VITAM IN D, 25-HY DROXY vitamin D, 25-hydroxy 16.0 NG/mL 30.0-1 00.0 below low normal Vitam in D defic iency has been defin ed by the Insti tute of Medic ine and an Endoc rine Socie ty pract ice guide line as a level of serum 25-OH vitam in D less than 20 ng/mL (1,2) . The Endoc rine Socie ty went on to furth er defin e vitam in D insuf ficie ncy as a level betwe en 21 and 29 ng/mL (2). 1. IOM (Inst itute of Medic ine). 2009. Dieta ry refer ence intak es for calci um and D. Karma medina [place]: [facility] . 2. Wilfredo spann [place], Tracy george [place], [employer], et al. Evalu ation , treat ment, and preve ntion of vitam in D defic iency : an Endoc rine Socie ty clini wilmer pract ice guide line. JCEM. 2010; 96(7) :1911 -30. Not Available [facility] ([facility]) [address] [facility] [facility], [place], [address], 12/22/2024 10:15:32 Result Notes None recorded. Problems Name Problem SNOMED Code Status Onset Date Resolution Date Notes Provider Name and Address Organization Details Recorded Time Anxiety disorder Active 2022 DAYSI DEMARCO MD Attn: Accounting, [address] , [place], [address], [place] [facility] 09:09:56 Myocardi al infarcti on 12122776 Active 2023 DAYSI DEMARCO MD Attn: Accounting, [address] [facility], [place], [address], [place] [facility] 19:47:03 Right inguinal hernia 511521425 Active 2022 DAYSI DEMARCO MD Attn: Accounting, [address] [place], [address], [place] [facility] 5 19:47:03 Small bowel obstruct ion 302733987 Completed 202212/21/2024 Removal Reason: resolved DAYSI DEMARCO MD Attn: Accounting, [address] [place], [address], [place] [facility] 09:10:10 Major depressi ve disorder 004136037 Active 2022 DAYSI DEMARCO MD Attn: Accounting, [address] [place], [address], [place] [facility] 5 09:09:53 Dyslipid emia 029986434 Active 2019 DAYSI DEMARCO MD Attn: Accounting, [address] [place], [address], [place] [facility] 5 09:09:[address] segment elevatio n myocardi al infarcti on 172243154 Active 2019 DAYSI DEMARCO MD Attn: Accounting, [address] [place], [address], [place] [facility] 5 19:47:03 Cataract due to diabetes mellitus type 2 140445496 Active 2022 DAYSI DEMARCO MD Attn: Accounting, [address] [place], [address], [place] [facility] 5 19:47:03 Coronary atherosc lerosis 726662122 Active 2019 DAYSI DEMARCO MD Attn: Accounting, [address] [place], [address], [place] [facility] 5 09:09:46 Hernia of abdomina l cavity 18160014 Active 2022 DAYSI DEMARCO MD Attn: Accounting, [address] [facility], [place], [address], [facility] 5 19:47:03 [facility] l hyperten guerita 03974704 Active 2022 DAYSI DEMARCO MD Attn: Accounting, [address] [facility], [place], [address], [facility] - SI 5 09:09:14 History of nicotine dependen ce Active 2019 DAYSI DEMARCO MD Attn: Accounting, [address] [facility], [place], [address], [facility] 5 09:09:43 Problem Notes None recorded. Medical Equipment None Reported. Allergies No known drug allergies Medications Name Sig Start Date Stop Date Status Note LastModified by Organization Details LastModified Time metformin 500 mg tablet Take 1 tablet twice a day by oral route. 2024 active Not Available Not Available Not Avai lable atorvastati n 80 mg tablet Take 1 tablet every day by oral route. 2024 active Not Available Not Available Not Avai lable carvedilol 6.25 mg tablet Take 1 tablet twice a day by oral route. 11/02 completed Not Available Not Available Not Available atorvastati n 20 mg tablet TAKE 1 TABLET (20 MG TOTAL) BY MOUTH NIGHTLY AT BEDTIME FOR 30 DAYS. 04/09 completed Not Available Not Available Not Available clopidogrel 75 mg tablet TAKE 1 TABLET BY MOUTH DAILY FOR 30 DAYS. 04/09 completed Not Available Not Available Not Available sulfamethox azole 800 mg-trimetho prim 160 mg tablet TAKE 1 TABLET BY MOUTH TWICE DAILY FOR 7 DAYS 04/09 completed Not Available Not Available Not Available aspirin 81 mg tablet,teetee yed release TAKE 1 TABLET BY MOUTH EVERY DAY active Not Available Not Available No t Available carvedilol 3.125 mg tablet TAKE 1 TABLET BY MOUTH TWICE DAILY active Not Available Not Available No t Available PeopleStringTouch Ultra Test strips USE 1 STRIP ONCE DAILY TO TEST BLOOD SUGARS active Not Available Not Available No t Available lisinopril 10 mg tablet TAKE 1 TABLET BY MOUTH EVERY DAY 04/09 completed Not Available Not Available Not Available losartan 25 mg tablet TAKE 1/2 (ONE-HALF ) TABLET BY MOUTH ONCE DAILY active Not Available Not Available No t Available nitroglycer in 0.[address] 1 TABLET UNDER THE TONGUE EVERY 5 MINUTES NEEDED FOR CHEST PAIN. active Not Available Not Available No t Available metoprolol succinate ER 25 mg tablet,exte nded release 24 hr TAKE 1 TABLET (25 MG TOTAL) BY MOUTH EVERY EVENING FOR 30 DAYS. 04/09 completed Not Available Not Available Not Available sertraline 50 mg tablet TAKE 1 TABLET BY MOUTH ONCE DAILY active Not Available Not Available No t Available amoxicillin 875 mg-potassiu m clavulanate 125 mg tablet TAKE 1 TABLET BY MOUTH TWICE DAILY FOR 3 DAYS 11/02 completed Not Available Not Available Not Available Alcohol Prep Pads Apply 1 pad every day by topical route. 2023 active Not Available Not Available Not Avai lable Lantus Solostar U-100 Insulin 100 unit/mL (3 mL) subcutaneou s pen Inject 10 units every day by subcutane ous route at bedtime. 2024 active Not Available Not Available Not Avai lable Brilinta 90 mg tablet TAKE 1 TABLET BY MOUTH 2 TIMES DAILY. active Not Available Not Available No t Available Jardiance 25 mg tablet TAKE 1 TABLET BY MOUTH ONCE DAILY active Not Available Not Available No t Available OneTouch Ultra2 Meter USE DIRECTED active Not Available Not Available No t Available OneTouch Delica Plus Lancet 33 gauge USE 1 LANCET DAILY TO TEST BLOOD SUGAR active Not Available Not Available No t Available insulin glargine-yf gn (U-100) 100 unit/mL (3 mL) subcutaneou s pen INJECT 10 UNITS SUBCUTANE OUSLY ONCE DAILY AT BEDTIME 12/21 completed Not Available Not Available Not Available Vitals Date Recorded Body height Body mass index (BMI) Body weight Body temperature Oxygen saturation Oxygen saturation in Arterial blood by Pulse oximetry Heart rate Systolic blood pressure Diastolic blood pressure Provider Name and Address Organization Details Last Updated DateTime 5 182.88 cm 23 kg/m2 29839.8 6 g 97.5 [degF] 96 % 96 % 88 /min 113 mm[Hg] 74 mm[Hg] NikAmandadeng Ingram MA [facility] 5 15:29:02 Date Recorded Body height Body temperature Body mass index (BMI) Body weight Oxygen saturation Oxygen saturation in Arterial blood by Pulse oximetry Heart rate Systolic blood pressure Diastolic blood pressure Provider Name and Address Organization Details Last Updated DateTime 5 182.88 cm 97.9 [degF] 21.7 kg/m2 59913.5 3 g 97 % 97 % 81 /min 103 mm[Hg] 67 mm[Hg] Jaki Morillo MA [facility] 5 14:58:42 Date Recorded Body height Body mass index (BMI) Body weight Body temperature Oxygen saturation Oxygen saturation in Arterial blood by Pulse oximetry Heart rate Systolic blood pressure Diastolic blood pressure Provider Name and Address Organization Details Last Updated DateTime 4 182.88 cm 23.1 kg/m2 93968.7 5 g 97.5 [degF] 97 % 97 % 90 /min 113 mm[Hg] 75 mm[Hg] Marisa Hui MA [facility] 4 16:35:48 Social History Question Answer Notes LastModified by [employer] ion Details LastModified Time Tobacco Smoking Status Former Smoker Jaki Morillo MA null, [facility] 12/21/2024 14:56:13 What Was The Date Of Your Most Recent Tobacco Screening? 12/21/2024 [email or web address] Information not available 12/21/2024 How Much Tobacco Do You Smoke? 1 PPD Information not available 04/09/2024 Has Tobacco Cessation Counseling Been Provided? No Information not available 04/09/2024 Sex: Unknown Functional Status Question Answer Note LastModified by Organizat ion Details LastModified Time Do you use any illicit or recreational drugs? No Information not available 04/09/2024 Do you or have you ever used any other forms of tobacco or nicotine? No Information not available 04/09/2024 What is your level of alcohol consumption? None Information not available 04/09/2024 Mental Status None recorded. Family History Nothing Reported. Medical History No medical history recorded. Immunizations Vaccine Type Date Status Note Provider Nam e and Address Organization Details Recorded Time Pneumococcal conjugate PCV20, polysaccharide PDZ698 conjugate, adjuvant, PF 5 completed YOGI [place], [place] - [facility] 12/21/2024 16:04:02 Tdap 5 completed YOGI [place], [place] - [facility] 12/21/2024 16:04:02 Past Encounters Encounter ID Performer Location Encounter Start Date Encounter Closed Date Diagnosis/Indication Diagnosis SNOMED-CT Code Diagnosis ICD10 Code Diagnosis Note [id number] Cassandra Mello MD [facility] [address] [facility] [address] [place] [address] 04/09/2024 16:10:06 04/14/2024 15:10:46 Heart failure with reduced ejection fraction 129588669 I50.9 Chronic. Most recent echo with EF 35-40%. With mild concentric LV hypertroph y. Many different areas that are hypokineti c, with abnormal diastolic function. Trace aortic regurg. Mild to mod mitral regurg. Mile tricuspic regurg.- Currently has a life vest on- Establishe d with cardiology . Next appointmen t 04/28- Pt reports hx of stents placed in 2019- Medication s: Carvedilol 6.25 mg PO BID, Losartan 25 mg PO daily- Start Jardiance 25 mg PO daily, as below- In the hospital, lipid panel: Tchol 159, TAG 217, HDL 27, and LDL 89- Will continue to peripheral ly monitor Type 2 francisco betes mellitus 86500127 E11.9 Chronic. Previous A1c of 12.3. Pt recently discharged , on no new DM medication . Had previously been on victoza and trulicity; however, had to D/C 2/2 to finances - A1c goal of <7%- Medication s: Metformin 500 mg PO BID- D/w pt importance of diet and exercise - BMI of 23.1 - On a statin for cholestero l control and an ARB for BP control and prevention of diabetic nephropath y- Start Jardiance 25 mg PO daily for both DM and HFrEF- D/w pt likely will not be at goal with both metformin and jardiance- Start Lantus 10 U QHS- Will still likely not be at goal with that start of insulin dose- F/u in 3 months for A1c check. At next appointmen t, will need to discuss eye exam and neuropathy . 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 Pt states that he hasn't had a job for >1 year and reports declining general physical condition. With his recent hospitaliz ation, his anxiety / depression has worsened.- Pt states that he has tried different medication s in the past; however, has been >10 years and unsure on which ones he has tried- PHQ-9 score of 17- BECKY-7 score of 21- Handout given for different therapists in the area- Start sertraline 50 mg PO daily- F/u in 4-6 weeks for medication efficacy and side effects. Consider increasing dose if needed Screening for malignant neoplasm of colon [id number] Z12.11 No hx of colonoscop y. Pt does state that he has a hx of colon removal 2/2 to diverticul itis in 2003- PE today with well healed scar on abdomen- Denies unintentio nal weight loss, hematochez ia, melena, or change in stool caliber- Pt would like to hold off for now, wants to complete his cardiology w/u first- Will consider at the next appointmen t Screening for malignant neoplasm of respiratory tract 943770563 Z12.2 Current smoker. 43 pack year smoking hx- Due for LDCT scan Smoker 64097879 F17.200 Current smoker, 1 PPD for the last 4 months. Had quit previously for 2-3 years. Prior to that, smoked 1 PPD for 43 years. 43 pack year smoking hx.- Pt wishing to get assistance in quitting- Considered wellbutrin for anxiety / depression ; however, pt also has anxiety. Considered wellbutrin and buspar; however, pt wanted to only take 1 medication for his anxiety / depression - Due for LDCT scan- At next appointmen t, will need to inquire more about what he had tried in the past to quit smoking- Will further discuss at f/u appointmen t Essential hypertension 07335331 I10 Chronic. Controlled . BP in office is 113/75. Asymptomat ic at this time.- BP goal of <140/90 per JNC8 guidelines - Medication s: Losartan 25 mg PO daily, Carvedilol 6.25 mg PO BID- D/w patient increased risk for heart attack, stroke and renal impairment - Exercise minimum of 150 min / week over at least 3 days- Risk stratifica tion: Last lipid panel with: Tchol 159, TAG 217, HDL 27, and LDL 89, A1c of 12.3, current smoker- Discussed dieting with a BMI goal of 25- Dieting should be rich in vegetables , fruits and whole grains Acute non- ST segment elevation myocardial infarction 330660046 I21.4 Recently hospitaliz ed, admitted for NSTEMI- [facility] revealed 50% stenosis LCFx, 100% OM (occluded stent) s/p PTCA (ballon) to OM.- Continue DAPT, beta seble, statin- F/u with cardiology on 04/28 [id number] Jez Bai MD [facility] [address] [facility] [address] [place] [address] 11/02/2024 15:15:41 11/06/2024 10:20:57 Heart failure with reduced ejection fraction 208743724 I50.9 Chronic. Most recent echo (06/29/24) with EF 35-40%. With mild concentric LV hypertroph y. Many different areas that are hypokineti c, with grade 2 diastolic dysfunctio n. Trace tricuspid regurgitat ion. Mild to mod mitral regurgitat ion. Mile tricuspid regurgitat ion.- Establishe d with cardiology . Has not seen in some time. Is unsure what medicines he is taking.- Pt reports hx of stents placed in 2019, STEMI s/p PCI to LAD (03/31/24)- Medication s: Carvedilol 3.125 mg PO BID, Losartan 12.5 mg PO daily- Jardiance 25 mg PO daily, as below- Will continue to monitor, recommende d scheduling a follow up with his cardiologi st- Patient to complete records request Essential hypertension [id number] I10 Chronic. Controlled . BP in office is 113/74. Asymptomat ic.- BP goal of <140/90 per JNC8 guidelines - Medication s: Losartan 25 mg PO daily, Carvedilol 3.125 mg PO BID- D/w patient increased risk for heart attack, stroke and renal impairment - Risk stratifica tion: obtain lipid panel- Discussed dieting with a BMI goal of 25- Dieting should be rich in vegetables , fruits and whole grains- Labs: CMP, alb/cr urine, lipid panel Type 2 francisco betes mellitus 29590910 E11.9 Chronic. Previous A1c of 12.3. A1c 10.1 today. Had previously been on victoza and trulicity; however, had to D/C 2/2 to finances- A1c goal of <7%- Medication s: Lantus 10U QHS, Metformin 500 mg PO BID, Jardiance 25mg QD- D/w pt importance of diet and exercise- BMI of 23- On a statin for cholestero l control and an ARB for BP control and prevention of diabetic nephropath y- Discussed checking fasting blood sugars- F/u in 3 months for A1c check. At next appointmen t, will need to discuss eye exam. Will likely need additional medication s for control. Mixed anxi ety and depressive disorder 731874137 F41.8 Chronic. Pt is working again and mood is stable on sertraline .- Perform BECKY/PHQ9 next visit Smoker 09935191 F17.200 Current smoker, 1/2-3/4 PPD for the last 6 months. Had quit previously for 2-3 years. Prior to that, smoked 1 PPD for 43 years. 43 pack year smoking hx.- Pt wishing to get assistance in quitting- Due for LDCT scan- Has tried nicotine patches, Zyn nicotine replacemen t- Discussed medical options for assisting in smoking cessation- Bupropion, Vareniclin e (Chantix) or nicotine replacemen t- Patient able to call at any time for these medication s- Counseling time 3-5 minutes- Discussed that smoking increases risk for cardiovasc ular events, stroke, COPD, and lung cancer Screening for malignant neoplasm of colon 055456713 Z12.11 No hx of colonoscop y. Pt does state that he has a hx of colon removal 2/2 to diverticul itis in 2003- Denies unintentio nal weight loss, hematochez ia, melena, or change in stool caliber- Pt agreeable to colonoscop y, GI referral placed Screening for malignant neoplasm of respiratory tract 069325283 Z12.2 Current smoker. 43 pack year smoking hx.- Father with h/o lung cancer- Due for baseline/s creening LDCT scan, pt agreeable and stated he would seek treatment if indicated Fatigue 89304837 R53.83 Patient has chronic fatigue since his NSTEMI in February 2024. Seems unrelated to how much sleep he gets. He does have restlessne ss at night, has not tried anything for sleep.- Recommende d Melatonin OTC for sleep- Check TSH, CBC- f/u in 2-4 weeks to go over labs, discuss fatigue [id number] Jez Bai MD [facility] [address] [facility] [address] [place] [address] 12/21/2024 14:41:23 12/30/2024 12:33:03 Heart failure with reduced ejection fraction 126622579 I50.9 Chronic. Most recent echo (06/29/24) with EF 35-40%. With mild concentric LV hypertroph y. Many different areas that are hypokineti c, with grade 2 diastolic dysfunctio n. Trace tricuspid regurgitat ion. Mild to mod mitral regurgitat ion. Mile tricuspid regurgitat ion.- Establishe d with cardiology . Has not seen in some time. Is unsure what medicines he is taking.- Pt reports hx of stents placed in 2019, STEMI s/p PCI to LAD (03/31/24)- Medication s: Carvedilol 3.125 mg PO BID, Losartan 12.5 mg PO daily- Jardiance 25 mg PO daily, as below- Will continue to monitor, recommende d scheduling a follow up with his cardiologi st- Patient to complete records request Essential hypertension 10397997 I10 Chronic. Controlled . BP in office is 103/67. Asymptomat ic.- BP goal of <140/90 per JNC8 guidelines - Medication s: Losartan 25 mg PO daily, Carvedilol 3.125 mg PO BID- D/w patient increased risk for heart attack, stroke and renal impairment - Risk stratifica tion: A1c 10.1, on high intensity statin- Discussed dieting with a BMI goal of 25- Dieting should be rich in vegetables , fruits and whole grains- Labs: none Type 2 francisco betes mellitus 00325853 E11.9 Chronic. Previous A1c of 10.1. Had previously been on victoza and trulicity; however, had to D/C 2/2 to finances- A1c goal of <7%- Medication s: Lantus 10U QHS, Metformin 500 mg PO BID, Jardiance 25mg QD- D/w pt importance of diet and exercise- BMI of 23- On a statin for cholestero l control and an ARB for BP control and prevention of diabetic nephropath y- Discussed checking fasting blood sugars and bringing in log- F/u in 2 months for A1c check. At next appointmen t, will need to discuss eye exam. Will likely need additional medication s for control. Fatigue 51883564 R53.83 Patient has chronic fatigue since his NSTEMI in February 2024. Seems unrelated to how much sleep he gets. He does have restlessne ss at night, has not tried anything for sleep.- Recommende d Melatonin OTC for sleep- TSH, CBC in September 2024 were normal- Check vitamin D, B12, folate, iron panel Smoker 10016248 F17.200 Former smoker, quit end of October/be ginning of November. 1/2-3 PPD for the last 6 months. Had quit previously for 2-3 years. Prior to that, smoked 1 PPD for 43 years. 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 Pt is working again and mood is stable on sertraline .- PHQ score: 5- BECKY score: 4 Active or passive immunization [id number] Z23 Health Concerns Section Related Observation LastModified by Organization Detai ls LastModified Time None Recorded Concern Status LastModified by Organization Details LastModified Time None Recorded Advance Directives Directive None Recorded Payers Encounter Date Sequence Insurance Name Policy Number Policy Hernandez Covered Member ID Hernandez Member ID Guarantor Name 04/09/2024 1 [facility] (HMO) [employer] Gianni Bob [id number] Gianni Bob 04/09/2024 1 [place] Gianni Bob [id number] Gianni Bob 11/02/2024 1 [employer] [place] ON [place] AFTER 2020 (MEDICAID REPLACEMENT - HMO) Gianni Bob [id number] Gianni Bob 12/21/2024 1 [employer] [place] ([place] RE[place]ACEMENT - [place]MO) Gianni Bob [id number] Gianni Bob Notes Date Note Type Note Provider Name and Address Organization Details Recorded Time 04/09/2024 text/html 58 yo; PMHx of C AD, HTN, HLD, and T2DM; presenting for establishment of care. Hospitalized 02/13 - 02/16Admitted for NSTEMI, stent placedStarted medication for HFrEF and DAPTInstructed to f/u with cardiology as outpatient Jez Bai MD Attn: Accounting,[address] [facility], [place], [address], [facility] 04/14/2024 11:42:14 11/02/2024 text/html Gianni Bob is a 59yo M with PMH of HFrEF, NSTEMI (2023), CAD, HTN, HLD, and T2DM, presenting to clinic for hospital follow-up. Recently hospitalized for SOB a couple weeks before [place]. No records on file, states he was admitted at [facility] Back to normalcy, except more tired as of late after his heart attack about 8 months ago. Main concern is his fatigue.Has trouble sleeping through the night. Smokes 1/2-3/4 PPDTakes blood sugars at night. Highest it's been is almost 500, lowest is about 110. Specialists: cardiology No h/a, vision changes, f/c, n/v/c/d, CP, SOB, calf claudication or leg swelling. Jez Bai MD Attn: Accounting,[address] [facility], [place], [address], [facility] 11/05/2024 18:38:56 12/21/2024 text/html Gianni Bob is a 59yo M with PMH of CAD, HTN, HLD, depression/anxiety, and T2DM who presents to clinic for a follow-up on fatigue, depression/anxiety and T2DM. Sleeping is irregular, 8 hours on a good night, frequently wakes at night.Floaters veins in the right eye and foggy for the last 1-2 weeks. Outstanding GI and LDCT referralDiabetic eye exam - due No h/a, f/c, n/v/c/d, CP, SOB, calf claudication or leg swelling. Jez Bai MD Attn: Accounting,[address] [place], [address], [facility] 12/24/2024 11:32:49
--- OUTSIDE RECORDS SUMMARY | 2025-03-23 13:32 | XMS_ITS | Clinical Summary ---
Author Organization 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 Gender Identity Not on file Sexual Orientation Not on file Plan of Treatment Health Maintenance Due Date Last Done Comments Hepatitis C Virus (HCV) Screening 1965 TdaP Immunization 1965 Hepatitis B Immunization (1 of 3 - 19+ 3-dose series) 1984 Colonoscopy 2010 Colorectal Cancer Screening 2010 Cologuard 2015 Immunochemical Fecal Occult Blood 2015 Pneumococcal Immunization (5 0+ years) (1 of 1 - PCV) 2015 Zoster Immunization (1 of 2) 2015 PSA Discussion 2020 Influenza Immunization (#1) 2024 SARS-COV-2 Immunization ( season) 2024 Respiratory Syncytial Virus (RSV) Immunization (Adult) (1 - 1-dose 75+ series) 2040 Meningococcal Immunization (ACWY) Aged Out No longer eligible based on patient's age to complete this topic Pneumococcal Immunization Combined Aged Out No longer eligible based on patient's age to complete this topic Rotavirus Immunization Aged Out No lo nger eligible based on patient's age to complete this topic
[2025-03-23] MEDS: CEPHALEXIN 500 MG CAPSULE PO (14:20)
[2025-03-23 14:30] VITALS: BP 118/81; PULSE 83; RESP 19; O2SAT 97
== END 2025-03-23 14:32 | disposition home or self-care (01) ==
PROVIDERS: Emergency Provider Emergency Medicine
DX: L03.114 Cellulitis of left upper limb (principal); R60.0 Localized edema; I25.10 Atherosclerotic heart disease of native coronary artery without angina pectoris; Z79.01 Long term (current) use of anticoagulants
CPT/HCPCS: 93971; 99284; A9270

== ENCOUNTER 2025-04-21 12:01 | Emergency (ER) | payer OTHER, SELFPAY ==
--- NOTE | ~2025-04-21 | XR_ITS ---
HISTORY: pain/swelling, no injury COMPARISON: None TECHNIQUE: 3 views of the right wrist were performed. FINDINGS: No acute fracture is identified. Significant degenerative disease is identified within the first carpometacarpal joint space suggestin g osteoarthritis. Periarticular osteopenia is also noted, suggesting osteoarthritis. The carpal arcs are intact. Moderate radiocarpal joint space narrowing with sclerosis of the distal radius is present. No significant soft tissue swelling is noted. No radiopaque foreign body is identified. IMPRESSION: Findings suggesting osteoarthritis without acute fracture or dislocation. Reviewed, dictated and finalized at location A.
--- OUTSIDE RECORDS SUMMARY | 2025-04-21 12:04 | XMS_ITS | Clinical Summary ---
Author Organization 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
--- OUTSIDE RECORDS SUMMARY | 2025-04-21 12:04 | XMS_ITS | Data Portability ---
Author Organization [facility] Alexandre Miller Address [address] [place] [address] Care Team Providers Care Carton Folder Name Role Phone NILAM DAYSI Primary Care Provider Unavail able Assessment Encounter Date Assessment Date Assessment LastModified by Organization Details LastModified Time 04/09/2024 04/09/2024 58 yo; PMHx of CAD, HTN, HLD, and T2DM; presenting for establishment of care. [email or web address] Not available 04/11/2024 11:37:58 11/02/2024 11/02/2024 59 yo; PMHx of CAD, HTN, HLD, and T2DM; presenting for chronic conditions and hospital f/u. [email or web address] Not available 11/02/2024 19:30:54 12/21/2024 12/21/2024 59 yo; PMHx of CAD, HTN, HLD, and T2DM; presenting for chronic conditions and hospital f/u. [email or web address] Not available 12/21/2024 09:09:00 Plan of Treatment Reminders Order Date Submit Date Provider Last Modified By Organization Details Last Modified Time Details Appointments None recorded . Lab vitamin D, 25-hydro xy, total, serum 2024 025 RAMSEY [facility], [address], [address], [place], [address], 5 10:15:32 [email or web address] n and folate panel, serum 2024 025 RAMSEY [facility], [address], [address], [place], [address], 5 10:15:31 ferritin , serum or plasma 2024 025 [email or web address] [facility], [address], [address], [place], [address], 14:48:28 TIBC (total iron-bin ding capacity ), serum 2024 025 [email or web address] [facility], [address], [address], [place], [address], 14:48:28 transfer rin, serum 2024 025 [facility], [address], [address], [place], [address], 14:48:28 HbA1c (hemoglo bin A1c), blood 2024 025 [email or web address] In-Office Order, Internal Use Only DO Not Attach Compendium DO Not Attach Compendium, Do Not Delete/merge, [id number] 19:56:48 TSH, ultra-se nsitive, serum 2024 025 [email or web address] [facility], [address], [address], [place], [place], [address], 5 09:05:42 CBC w/ auto diff 2024 025 [email or web address] [facility], [address], [address], [place], [address], 5 09:04:23 lipid panel, serum 2024 025 [email or web address] [facility], [address], [address], [place], [address], 5 09:04:38 CMP, serum or plasma 2024 [email or web address] [facility], [address], [place], [address], 5 09:03:51 microalb umin/cre atinine, mass ratio, urine 2024 [email or web address] [facility], [address], [place], [address], 5 09:14:[address] referral 2024 [facility], [address], [place], [address], 5 10:09:10 Procedures None recorded . Surgeries None recorded . Imaging LDCT, chest, for lung cancer screenin g 2024 [facility]uling, [facility], [place], [address], 5 14:07:17 Medication Orders carvedil ol 3.125 mg tablet [address] [facility], [address] [place], [address], 5 15:40:35 losartan 25 mg tablet [address] [facility], [address] [place], [address], 5 15:40:34 Jardianc e 25 mg tablet [address] [facility], [address] [place], [address], 5 23:01:35 atorvast atin 80 mg tablet [address] [facility], [address] [place], [address], 15:40:33 sertrali ne 50 mg tablet [address] [facility], [address] [place], [address], 15:40:34 atorvast atin 80 mg tablet [address] [facility], [address] [place] [address], [address], 19:56:55 metformi n 500 mg tablet [address] [facility], [address] [place] [address], [address], 19:56:58 Jardianc e 25 mg tablet 2024 [email or web address] [facility], [address] [place] [address], [address], 18:38:53 Lantus Solostar U-100 Insulin 100 unit/mL (3 mL) subcutan eous pen [address] [facility], [address] [place] [address], [address], 19:56:55 sertrali ne 50 mg tablet [address] [facility], [address] [place] [address], [address], 19:56:57 losartan 25 mg tablet 2024 [facility], [address] [place] [address], [address], 15:40:09 carvedil ol 3.125 mg tablet [address] [facility], [address] [place], [address], 5 19:56:57 losartan 25 mg tablet [email or web address] [place] [address] Pharmacy [facility], [address] [place], [address], 5 15:39:04 atorvast atin 80 mg tablet [address] [facility], [address] [place] [address], [address], 4 17:03:33 metformi n 500 mg tablet [address] [facility], [address] [place] [address], [address], 4 17:03:32 Jardianc e 25 mg tablet [address] [facility], [address] [place] [address], [address], 4 17:03:34 Lantus Solostar U-100 Insulin 100 unit/mL (3 mL) subcutan eous pen [address] [facility], [address] [place] [address], [address], 4 21:13:23 Alcohol Prep Pads [address] [facility], [address] [place] [address], [address], 4 21:14:25 Blood Glucose Test strips 2023 024 [facility], [address] [place] [address], [address], 4 10:15:03 sertrali ne 50 mg tablet 2023 024 [facility], [address] [facility], [place], [address], 21:12:58 Patient TargetsNo targets recorded. Patient Instructions Encounter Date Encounter Id Patient Instructions Last Modified By Organization Details Last Modified Time 04/09/2024 [id number] I was present an d available in the Family Medicine clinic to discuss the patient's care during the time of the appointment. All labs/imaging/cons ults/prescription s to be followed by the resident rendering services on day of encounter. I agree with the resident's assessment and plan as documented with the following addendum: None. 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 Screening for malignant neoplasm of colon colon cancer screening colonoscopy Referring Physician: Daysi Demarco, Feed Preparation Operator, Encounter Date: 11/02/2024 Results Created Date Observation [...] - 99 mg/dL 03/31 8:15 PM CDT [facility] Not Available Not Available 12/08/2024 10:29:09 03/31/20 24 03/31/2024 Gluco se [Mass /volu me] in Blood by Autom ated test strip interpretati on and review of laboratory results ABNORM AL Not Available Not Available 10:29:09 03/31/20 24 03/31/2024 Proth rombi n time (PT) prothrombin time (PT) 13.6 text: 10.2 - 12.9 sec high PROTI ME 13.6 (H) 10.2 - 12.9 SEC 03/31 6:02 PM CDT [facility] Not Available Not Available 12/08/2024 10:29:09 03/31/20 24 03/31/2024 Proth rombi n time (PT) INR in platelet poor plasma by coagulation assay 1.2 INR 1.2 03/31 6:02 PM CDT [facility] Not Available Not Available 12/08/2024 10:29:09 03/31/20 24 03/31/2024 Proth rombi n time (PT) interpretati on and review of laboratory results ABNORM AL Not Available Not Available 10:29:09 03/31/20 24 03/31/2024 Basic metab olic 2000 panel - Serum or Plasm a glucose [mass/volume ] in serum or plasma 298 text: 70 - 99 mg/dL high GLUCO SE 298 (H) 70 - 99 MG/DL 03/31 6:12 PM CDT [facility] Not Available Not Available 12/08/2024 10:29:09 03/31/20 24 03/31/2024 Basic metab olic 2000 panel - Serum or Plasm a urea nitrogen [mass/volume ] in serum or plasma 6 text: 7 - 18 mg/dL low BUN 6 (L) 7 - 18 MG/DL 03/31 6:12 PM CDT [facility] Not Available Not Available 12/08/2024 10:29:09 03/31/20 24 03/31/2024 Basic metab olic 1999 panel - Serum or Plasm a creatinine [mass/volume ] in serum or plasma 0.83 text: 0.7 - 1.3 mg/dL CREAT ININE S/P/B 0.83 0.7 - 1.3 MG/DL 03/31 6:12 PM CDT [facility] Not Available Not Available 12/08/2024 10:29:09 03/31/20 24 03/31/2024 Basic metab olic 1999 panel - Serum or Plasm a sodium [moles/volum e] in serum or plasma 127 text: 136 - 145 mmol/L low SODIU M S/P/B 127 (L) 136 - 145 MMOL/ L 03/31 6:12 PM CDT [facility] Not Available Not Available 12/08/2024 10:29:09 03/31/20 24 03/31/2024 Basic metab olic 1999 panel - Serum or Plasm a potassium [moles/volum e] in serum or plasma 3.2 text: 3.5 - 5.1 mmol/L low POTAS SIUM S/P/B 3.2 (L) 3.5 - 5.1 MMOL/ L 03/31 6:12 PM CDT [facility] Not Available Not Available 12/08/2024 10:29:09 03/31/20 24 03/31/2024 Basic metab olic 1999 panel - Serum or Plasm a chloride [moles/volum e] in serum or plasma 97 text: 100 - 108 mmol/L low CHLOR KATERIN S/P/B 97 (L) 100 - 108 MMOL/ L 03/31 6:12 PM CDT [facility] Not Available Not Available 12/08/2024 10:29:09 03/31/20 24 03/31/2024 Basic metab olic 1999 panel - Serum or Plasm a carbon dioxide, total [moles/volum e] in serum or plasma 22.7 text: 21 - 32 mmol/L CO2 22.7 21 - 32 MMOL/ L 03/31 6:12 PM CDT [facility] Not Available Not Available 12/08/2024 10:29:03/31/20 24 03/31/2024 Basic metab olic 1999 panel - Serum or Plasm a calcium [mass/volume ] in serum or plasma 7.8 text: 8.5 - 10.1 mg/dL low CALCI UM S/P/B 7.8 (L) 8.5 - 10.1 MG/DL 03/31 6:12 PM CDT [facility] Not Available Not Available 12/08/2024 10:29:03/31/20 24 03/31/2024 Basic metab olic 1999 panel - Serum or Plasm a anion gap in serum or plasma 7.3 text: 5 - 15 mmol/L ANION GAP 7.3 5 - 15 MMOL/ L 03/31 6:12 PM CDT [facility] Not Available Not Available 12/08/2024 10:29:03/31/20 24 03/31/2024 Basic metab olic 1999 panel - Serum or Plasm a urea nitrogen/cre atinine [mass ratio] in serum or plasma 7.2 low: 6high: 26 BUN CREAT ININE RATIO 7.2 6 - 26 03/31 6:12 PM CDT [facility] Not Available Not Available 12/08/2024 10:29:03/31/20 24 03/31/2024 Basic metab olic 2000 panel - Serum or Plasm a glomerular filtration rate/1.73 sq M.predicted [volume rate/area] in serum, plasma or blood by creatinine-b ased formula (CKD-epi 2020) text: >90 mL/min /1.73 M2 GFR ESTIM ATE >90 >90 ML/ND N/1.7 3 M2 03/31 6:12 PM CDT [facility] Not Available Not Available 12/08/2024 [...] 11.0 x10'3 /uL 03/31 6:30 PM CDT [facility] Not Available Not Available 12/08/2024 10:29:03/31/20 24 03/31/2024 CBC W Auto Diffe renti al panel - Blood erythrocytes [#/volume] in blood by automated count 4.51 text: 4.70 - 6.10 x10'6/ uL low RBC 4.51 (L) 4.70 - 6.10 x10'6 /uL 03/31 6:30 PM CDT [facility] Not Available Not Available 12/08/2024 10:29:03/31/20 24 03/31/2024 CBC W Auto Diffe renti al panel - Blood hemoglobin [mass/volume ] in blood 13.6 text: 14.0 - 18.0 g/dL low HGB 13.6 (L) 14.0 - 18.0 G/DL 03/31 6:30 PM CDT [facility] Not Available Not Available 12/08/2024 10:29:03/31/20 24 03/31/2024 CBC W Auto Diffe renti al panel - Blood hematocrit [volume fraction] of blood 39.1 % low: 43%hig h: 54% low HCT 39.1 (L) 43.0 - 54.0 % 03/31 6:30 PM CDT [facility] Not Available Not Available 12/08/2024 10:29:03/31/20 24 03/31/2024 CBC W Auto Diffe renti al panel - Blood MCV [entitic volume] 86.7 text: 80.0 - 94.0 fL MCV 86.7 80.0 - 94.0 FL 03/31 6:30 PM CDT [facility] Not Available Not Available 12/08/2024 10:29:09 03/31/20 24 03/31/2024 CBC W Auto Diffe renti al panel - Blood MCH [entitic mass] 30.2 pg low: 27pghi gh: 31pg MCH 30.2 27.0 - 31.0 PG 03/31 6:30 PM CDT [facility] Not Available Not Available 12/08/2024 10:29:03/31/20 24 03/31/2024 CBC W Auto Diffe renti al panel - Blood MCHC [mass/volume ] 34.8 text: 32.0 - 36.0 g/dL MCHC 34.8 32.0 - 36.0 G/DL 03/31 6:30 PM CDT [facility] Not Available Not Available 12/08/2024 10:29:03/31/20 24 03/31/2024 CBC W Auto Diffe renti al panel - Blood erythrocyte distribution width [entitic volume] by automated count 11.9 % low: 11.5%h igh: 14.5% RDW 11.9 11.5 - 14.5 % 03/31 6:30 PM CDT [facility] Not Available Not Available 12/08/2024 10:29:03/31/2003/31/2024 CBC W Auto Diffe renti al panel - Blood platelets [#/volume] in blood 190 text: 130 - 400 x10'3/ uL PLT 190 130 - 400 x10'3 /uL 03/31 6:30 PM CDT [facility] Not Available Not Available 12/08/2024 10:29:09 03/31/20 24 03/31/2024 CBC W Auto Diffe renti al panel - Blood platelet mean volume [entitic volume] in blood 9.6 text: 9.3 - 12.2 fL MPV 9.6 9.3 - 12.2 FL 03/31 6:30 PM CDT [facility] Not Available Not Available 12/08/2024 10:29:09 03/31/20 24 03/31/2024 CBC W Auto Diffe renti al panel - Blood differential cell count method - blood AUTOMA TOSHIA DIFFER ENTIAL DIFFE RENTI AL TYPE AUTOM ATED DIFFE RENTI AL 03/31 6:30 PM CDT [facility] Not Available Not Available 12/08/2024 10:29:09 03/31/20 24 03/31/2024 CBC W Auto Diffe renti al panel - Blood neutrophils/ 100 leukocytes in blood by automated count 74.6 % NEUTR OPHIL S % 74.6 % 03/31 6:30 PM CDT [facility] Not Available Not Available 12/08/2024 10:29:09 03/31/20 24 03/31/2024 CBC W Auto Diffe renti al panel - Blood lymphocytes/ 100 leukocytes in blood by automated count 20.3 % LYMPH OCYTE S % 20.3 % 03/31 6:30 PM CDT [facility] Not Available Not Available 12/08/2024 10:29:09 03/31/20 24 03/31/2024 CBC W Auto Diffe renti al panel - Blood monocytes/10 0 leukocytes in blood by automated count 3.8 % MONOC YTES % 3.8 % 03/31 6:30 PM CDT [facility] Not Available Not Available 12/08/2024 10:29:09 03/31/20 24 03/31/2024 CBC W Auto Diffe renti al panel - Blood eosinophils/ 100 leukocytes in blood by automated count 0.5 % EOSIN OPHIL S 0.5 % 03/31 6:30 PM CDT [facility] Not Available Not Available 12/08/2024 10:29:09 03/31/20 24 03/31/2024 CBC W Auto Diffe renti al panel - Blood basophils/10 0 leukocytes in blood by automated count 0.4 % BASOP HILS 0.4 % 03/31 6:30 PM CDT [facility] Not Available Not Available 12/08/2024 10:29:09 03/31/20 24 03/31/2024 CBC W Auto Diffe renti al panel - Blood immature granulocytes /100 leukocytes in blood by automated count 0.4 % IMMAT URE GRANS % 0.4 % 03/31 6:30 PM CDT [facility] Not Available Not Available 12/08/2024 10:29:09 03/31/20 24 03/31/2024 CBC W Auto Diffe renti al panel - Blood neutrophils [#/volume] in blood 5.42 text: 1.80 - 7.70 x10'3/ uL ABS. NEUTR OPHIL S 5.42 1.80 - 7.70 x10'3 /uL 03/31 6:30 PM CDT [facility] Not Available Not Available 12/08/2024 10:29:09 03/31/20 24 03/31/2024 CBC W Auto Diffe renti al panel - Blood lymphocytes [#/volume] in blood 1.48 text: 1.00 - 4.80 x10'3/ uL ABS. LYMPH OCYTE S 1.48 1.00 - 4.80 x10'3 /uL 03/31 6:30 PM CDT [facility] Not Available Not Available 12/08/2024 10:29:09 03/31/20 24 03/31/2024 CBC W Auto Diffe renti al panel - Blood monocytes [#/volume] in blood 0.28 text: 0.30 - 0.82 x10'3/ uL low ABS. MONOC YTES 0.28 (L) 0.30 - 0.82 x10'3 /uL 03/31 6:30 PM CDT [facility] Not Available Not Available 12/08/2024 10:29:03/31/20 24 03/31/2024 CBC W Auto Diffe renti al panel - Blood eosinophils [#/volume] in blood 0.04 text: 0.04 - 0.54 x10'3/ uL ABS. EOSIN OPHIL S 0.04 0.04 - 0.54 x10'3 /uL 03/31 6:30 PM CDT [facility] Not Available Not Available 12/08/2024 10:29:03/31/2003/31/2024 CBC W Auto Diffe renti al panel - Blood basophils [#/volume] in blood 0.03 text: 0.01 - 0.08 x10'3/ uL ABS. BASOP HILS 0.03 0.01 - 0.08 x10'3 /uL 03/31 6:30 PM CDT [facility] Not Available Not Available 12/08/2024 10:29:03/31/2003/31/2024 CBC W Auto Diffe renti al panel - Blood immature granulocytes [#/volume] in blood 0.03 text: 0.00 - 0.49 x10'3/ uL ABS. IMMAT URE GRANU LOCYT ES 0.03 0.00 - 0.49 x10'3 /uL 03/31 6:30 PM CDT [facility] Not Available Not Available 12/08/2024 [...] - 125 SEC 03/31 6:07 PM CDT [facility] Not Available Not Available 12/08/2024 10:29:09 03/31/20 24 03/31/2024 Activ ated clott ing time (ACT) of Blood by Coagu latio n assay tech code [id number] TECH CODE 523,6 96 03/31 6:07 PM CDT [facility] Not Available Not Available 12/08/2024 10:29:03/31/20 24 03/31/2024 Activ ated clott ing [...] - 99 MG/DL 03/31 5:37 PM CDT [facility] Not Available Not Available 12/08/2024 10:29:03/31/20 24 03/31/2024 Compr ehens gaby metab olic 2000 panel - Serum or Plasm a urea nitrogen [mass/volume ] in serum or plasma 6 text: 7 - 18 mg/dL low BUN 6 (L) 7 - 18 MG/DL 03/31 5:37 PM CDT [facility] Not Available Not Available 12/08/2024 10:29:03/31/20 24 03/31/2024 Compr ehens gaby metab olic 2000 panel - Serum or Plasm a creatinine [mass/volume ] in serum or plasma 1.24 text: 0.7 - 1.3 mg/dL CREAT ININE S/P/B 1.24 0.7 - 1.3 MG/DL 03/31 5:37 PM CDT [facility] Not Available Not Available 12/08/2024 10:29:09 03/31/20 24 03/31/2024 Compr ehens gaby metab olic 1999 panel - Serum or Plasm a sodium [moles/volum e] in serum or plasma 135 text: 136 - 145 mmol/L low SODIU M S/P/B 135 (L) 136 - 145 MMOL/ L 03/31 5:37 PM CDT [facility] Not Available Not Available 12/08/2024 10:29:09 03/31/20 24 03/31/2024 Compr ehens gaby metab olic 1999 panel - Serum or Plasm a potassium [moles/volum e] in serum or plasma 3.8 text: 3.5 - 5.1 mmol/L POTAS SIUM S/P/B 3.8 3.5 - 5.1 MMOL/ L 03/31 5:37 PM CDT [facility] Not Available Not Available 12/08/2024 10:29:09 03/31/20 24 03/31/2024 Compr ehens gaby metab olic 1999 panel - Serum or Plasm a chloride [moles/volum e] in serum or plasma 101 text: 100 - 108 mmol/L CHLOR KATERIN S/P/B 101 100 - 108 MMOL/ L 03/31 5:37 PM CDT [facility] Not Available Not Available 12/08/2024 10:29:09 03/31/20 24 03/31/2024 Compr ehens gaby metab olic 1999 panel - Serum or Plasm a carbon dioxide, total [moles/volum e] in serum or plasma 24.6 text: 21 - 32 mmol/L CO2 24.6 21 - 32 MMOL/ L 03/31 5:37 PM CDT [facility] Not Available Not Available 12/08/2024 10:29:09 03/31/20 24 03/31/2024 Compr ehens gaby metab olic 2000 panel - Serum or Plasm a calcium [mass/volume ] in serum or plasma 9.5 text: 8.5 - 10.1 mg/dL CALCI UM S/P/B 9.5 8.5 - 10.1 MG/DL 03/31 5:37 PM CDT [facility] Not Available Not Available 12/08/2024 10:29:09 03/31/20 24 03/31/2024 Compr ehens gaby metab olic 2000 panel - Serum or Plasm a bilirubin.to doni [mass/volume ] in serum or plasma 0.7 text: 0.2 - 1.2 mg/dL BILIR UBIN TOTAL S/P/B 0.7 0.2 - 1.2 MG/DL 03/31 5:37 PM CDT [facility] Not Available Not Available 12/08/2024 10:29:09 03/31/20 24 03/31/2024 Compr ehens gaby metab olic 2000 panel - Serum or Plasm a protein [mass/volume ] in serum or plasma 8.3 text: 6.4 - 8.2 g/dL high TOTAL PROTE IN S/P/B 8.3 (H) 6.4 - 8.2 G/DL 03/31 5:37 PM CDT [facility] Not Available Not Available 12/08/2024 10:29:09 03/31/20 24 03/31/2024 Compr ehens gaby metab olic 2000 panel - Serum or Plasm a albumin [mass/volume ] in serum or plasma 3.8 text: 3.4 - 5.0 g/dL ALBUM IN S/P/B 3.8 3.4 - 5.0 G/DL 03/31 5:37 PM CDT [facility] Not Available Not Available 12/08/2024 10:29:03/31/20 24 03/31/2024 Compr ehens gaby metab olic 2000 panel - Serum or Plasm a aspartate aminotransfe rase [enzymatic activity/vol ume] in serum or plasma 12 U/L low: 15U/Lh igh: 37U/L low AST 12 (L) 15 - 37 U/L 03/31 5:37 PM CDT [facility] Not Available Not Available 12/08/2024 10:29:09 03/31/20 24 03/31/2024 Compr ehens gaby metab olic 1999 panel - Serum or Plasm a alanine aminotransfe rase [enzymatic activity/vol ume] in serum or plasma 16 U/L low: 16U/Lh igh: 60U/L ALT 16 16 - 60 U/L 03/31 5:37 PM CDT [facility] Not Available Not Available 12/08/2024 10:29:09 03/31/20 24 03/31/2024 Compr ehens gaby metab olic 1999 panel - Serum or Plasm a alkaline phosphatase [enzymatic activity/vol ume] in serum or plasma 105 U/L low: 50U/Lh igh: 136U/L ALKAL INE PHOSP HATAS E S/P/B 105 50 - 136 U/L 03/31 5:37 PM CDT [facility] Not Available Not Available 12/08/2024 10:29:09 03/31/20 24 03/31/2024 Compr ehens gaby metab olic 1999 panel - Serum or Plasm a anion gap in serum or plasma 9.4 text: 5 - 15 mmol/L ANION GAP 9.4 5 - 15 MMOL/ L 03/31 5:37 PM CDT [facility] Not Available Not Available 12/08/2024 10:29:09 03/31/20 24 03/31/2024 Compr ehens gaby metab olic 1999 panel - Serum or Plasm a urea nitrogen/cre atinine [mass ratio] in serum or plasma 4.8 low: 6high: 26 low BUN CREAT ININE RATIO 4.8 (L) 6 - 26 03/31 5:37 PM CDT [facility] Not Available Not Available 12/08/2024 10:29:09 03/31/20 24 03/31/2024 Compr ehens gaby metab olic 1999 panel - Serum or Plasm a albumin/glob ulin [mass ratio] in serum or plasma 0.8 text: 1.0 - 2.0 ratio low A/G RATIO 0.8 (L) 1.0 - 2.0 RATIO 03/31 5:37 PM CDT [facility] Not Available Not Available 12/08/2024 10:29:09 03/31/20 24 03/31/2024 Compr ehens gaby metab olic 2000 panel - Serum or Plasm a glomerular filtration rate/1.73 sq M.predicted [volume rate/area] in serum, plasma or blood by creatinine-b ased formula (CKD-epi 2020) 67 text: >90 mL/min /1.73 M2 low GFR ESTIM ATE 67 (L) >90 ML/ND N/1.7 3 M2 03/31 5:37 PM CDT [facility] Not Available Not Available 12/08/2024 [...] 11.0 x10'3 /uL 03/31 4:56 PM CDT [facility] Not Available Not Available 12/08/2024 10:29:08 03/31/20 24 03/31/2024 CBC W Auto Diffe renti al panel - Blood erythrocytes [#/volume] in blood by automated count 5.72 text: 4.70 - 6.10 x10'6/ uL RBC 5.72 4.70 - 6.10 x10'6 /uL 03/31 4:56 PM CDT [facility] Not Available Not Available 12/08/2024 10:29:08 03/31/20 24 03/31/2024 CBC W Auto Diffe renti al panel - Blood hemoglobin [mass/volume ] in blood 16.9 text: 14.0 - 18.0 g/dL HGB 16.9 14.0 - 18.0 G/DL 03/31 4:56 PM CDT [facility] Not Available Not Available 12/08/2024 10:29:08 03/31/20 24 03/31/2024 CBC W Auto Diffe renti al panel - Blood hematocrit [volume fraction] of blood 49.1 % low: 43%hig h: 54% HCT 49.1 43.0 - 54.0 % 03/31 4:56 PM CDT [facility] Not Available Not Available 12/08/2024 10:29:08 03/31/20 24 03/31/2024 CBC W Auto Diffe renti al panel - Blood MCV [entitic volume] 85.8 text: 80.0 - 94.0 fL MCV 85.8 80.0 - 94.0 FL 03/31 4:56 PM CDT [facility] Not Available Not Available 12/08/2024 10:29:08 03/31/20 24 03/31/2024 CBC W Auto Diffe renti al panel - Blood MCH [entitic mass] 29.5 pg low: 27pghi gh: 31pg MCH 29.5 27.0 - 31.0 PG 03/31 4:56 PM CDT [facility] Not Available Not Available 12/08/2024 10:29:08 03/31/20 24 03/31/2024 CBC W Auto Diffe renti al panel - Blood MCHC [mass/volume ] 34.4 text: 32.0 - 36.0 g/dL MCHC 34.4 32.0 - 36.0 G/DL 03/31 4:56 PM CDT [facility] Not Available Not Available 12/08/2024 10:29:08 03/31/20 24 03/31/2024 CBC W Auto Diffe renti al panel - Blood erythrocyte distribution width [entitic volume] by automated count 12 % low: 11.5%h igh: 14.5% RDW 12.0 11.5 - 14.5 % 03/31 4:56 PM CDT [facility] Not Available Not Available 12/08/2024 10:29:08 03/31/20 24 03/31/2024 CBC W Auto Diffe renti al panel - Blood platelets [#/volume] in blood 275 text: 130 - 400 x10'3/ uL PLT 275 130 - 400 x10'3 /uL 03/31 4:56 PM CDT [facility] Not Available Not Available 12/08/2024 10:29:08 03/31/20 24 03/31/2024 CBC W Auto Diffe renti al panel - Blood platelet mean volume [entitic volume] in blood 9.1 text: 9.3 - 12.2 fL low MPV 9.1 (L) 9.3 - 12.2 FL 03/31 4:56 PM CDT [facility] Not Available Not Available 12/08/2024 10:29:08 03/31/20 24 03/31/2024 CBC W Auto Diffe renti al panel - Blood differential cell count method - blood AUTOMA TOSHIA DIFFER ENTIAL DIFFE RENTI AL TYPE AUTOM ATED DIFFE RENTI AL 03/31 4:56 PM CDT [facility] Not Available Not Available 12/08/2024 10:29:08 03/31/20 24 03/31/2024 CBC W Auto Diffe renti al panel - Blood neutrophils/ 100 leukocytes in blood by automated count 67.7 % NEUTR OPHIL S % 67.7 % 03/31 4:56 PM CDT [facility] Not Available Not Available 12/08/2024 10:29:08 03/31/20 24 03/31/2024 CBC W Auto Diffe renti al panel - Blood lymphocytes/ 100 leukocytes in blood by automated count 25.8 % LYMPH OCYTE S % 25.8 % 03/31 4:56 PM CDT [facility] Not Available Not Available 12/08/2024 10:29:08 03/31/20 24 03/31/2024 CBC W Auto Diffe renti al panel - Blood monocytes/10 0 leukocytes in blood by automated count 5.1 % MONOC YTES % 5.1 % 03/31 4:56 PM CDT [facility] Not Available Not Available 12/08/2024 10:29:08 03/31/20 24 03/31/2024 CBC W Auto Diffe renti al panel - Blood eosinophils/ 100 leukocytes in blood by automated count 0.6 % EOSIN OPHIL S 0.6 % 03/31 4:56 PM CDT [facility] Not Available Not Available 12/08/2024 10:29:08 03/31/20 24 03/31/2024 CBC W Auto Diffe renti al panel - Blood basophils/10 0 leukocytes in blood by automated count 0.4 % BASOP HILS 0.4 % 03/31 4:56 PM CDT [facility] Not Available Not Available 12/08/2024 10:29:08 03/31/20 24 03/31/2024 CBC W Auto Diffe renti al panel - Blood immature granulocytes /100 leukocytes in blood by automated count 0.4 % IMMAT URE GRANS % 0.4 % 03/31 4:56 PM CDT [facility] Not Available Not Available 12/08/2024 10:29:08 03/31/20 24 03/31/2024 CBC W Auto Diffe renti al panel - Blood neutrophils [#/volume] in blood 6.62 text: 1.80 - 7.70 x10'3/ uL ABS. NEUTR OPHIL S 6.62 1.80 - 7.70 x10'3 /uL 03/31 4:56 PM CDT [facility] Not Available Not Available 12/08/2024 10:29:08 03/31/20 24 03/31/2024 CBC W Auto Diffe renti al panel - Blood lymphocytes [#/volume] in blood 2.52 text: 1.00 - 4.80 x10'3/ uL ABS. LYMPH OCYTE S 2.52 1.00 - 4.80 x10'3 /uL 03/31 4:56 PM CDT [facility] Not Available Not Available 12/08/2024 10:29:08 03/31/20 24 03/31/2024 CBC W Auto Diffe renti al panel - Blood monocytes [#/volume] in blood 0.5 text: 0.30 - 0.82 x10'3/ uL ABS. MONOC YTES 0.50 0.30 - 0.82 x10'3 /uL 03/31 4:56 PM CDT [facility] Not Available Not Available 12/08/2024 10:29:08 03/31/20 24 03/31/2024 CBC W Auto Diffe renti al panel - Blood eosinophils [#/volume] in blood 0.06 text: 0.04 - 0.54 x10'3/ uL ABS. EOSIN OPHIL S 0.06 0.04 - 0.54 x10'3 /uL 03/31 4:56 PM CDT [facility] Not Available Not Available 12/08/2024 10:29:08 03/31/20 24 03/31/2024 CBC W Auto Diffe renti al panel - Blood basophils [#/volume] in blood 0.04 text: 0.01 - 0.08 x10'3/ uL ABS. BASOP HILS 0.04 0.01 - 0.08 x10'3 /uL 03/31 4:56 PM CDT [facility] Not Available Not Available 12/08/2024 10:29:08 03/31/20 24 03/31/2024 CBC W Auto Diffe renti al panel - Blood immature granulocytes [#/volume] in blood 0.04 text: 0.00 - 0.49 x10'3/ uL ABS. IMMAT URE GRANU LOCYT ES 0.04 0.00 - 0.49 x10'3 /uL 03/31 4:56 PM CDT [facility] Not Available Not Available 12/08/2024 [...] - 99 mg/dL 04/01 8:27 PM CDT [facility] Not Available Not Available 12/08/2024 [...] - 99 mg/dL 04/01 3:30 PM CDT [facility] Not Available Not Available 12/08/2024 [...] - 99 mg/dL 04/01 12:42 PM CDT [facility] Not Available Not Available 12/08/2024 [...] - 99 MG/DL 04/01 7:49 AM CDT [facility] Not Available Not Available 12/08/2024 10:29:10 04/01/20 24 04/01/2024 Basic metab olic 1999 panel - Serum or Plasm a urea nitrogen [mass/volume ] in serum or plasma 11 text: 7 - 18 mg/dL BUN 11 7 - 18 MG/DL 04/01 7:49 AM CDT [facility] Not Available Not Available 12/08/2024 10:29:10 04/01/20 24 04/01/2024 Basic metab olic 2000 panel - Serum or Plasm a creatinine [mass/volume ] in serum or plasma 0.86 text: 0.7 - 1.3 mg/dL CREAT ININE S/P/B 0.86 0.7 - 1.3 MG/DL 04/01 7:49 AM CDT [facility] Not Available Not Available 12/08/2024 10:29:10 04/01/20 24 04/01/2024 Basic metab olic 2000 panel - Serum or Plasm a sodium [moles/volum e] in serum or plasma 135 text: 136 - 145 mmol/L low SODIU M S/P/B 135 (L) 136 - 145 MMOL/ L 04/01 7:49 AM CDT [facility] Not Available Not Available 12/08/2024 10:29:10 04/01/20 24 04/01/2024 Basic metab olic 1999 panel - Serum or Plasm a potassium [moles/volum e] in serum or plasma 3.7 text: 3.5 - 5.1 mmol/L POTAS SIUM S/P/B 3.7 3.5 - 5.1 MMOL/ L 04/01 7:49 AM CDT [facility] Not Available Not Available 12/08/2024 10:29:10 04/01/20 24 04/01/2024 Basic metab olic 1999 panel - Serum or Plasm a chloride [moles/volum e] in serum or plasma 106 text: 100 - 108 mmol/L CHLOR KATERIN S/P/B 106 100 - 108 MMOL/ L 04/01 7:49 AM CDT [facility] Not Available Not Available 12/08/2024 10:29:10 04/01/20 24 04/01/2024 Basic metab olic 1999 panel - Serum or Plasm a carbon dioxide, total [moles/volum e] in serum or plasma 21.5 text: 21 - 32 mmol/L CO2 21.5 21 - 32 MMOL/ L 04/01 7:49 AM CDT [facility] Not Available Not Available 12/08/2024 10:29:10 04/01/20 24 04/01/2024 Basic metab olic 1999 panel - Serum or Plasm a calcium [mass/volume ] in serum or plasma 8.7 text: 8.5 - 10.1 mg/dL CALCI UM S/P/B 8.7 8.5 - 10.1 MG/DL 04/01 7:49 AM CDT [facility] Not Available Not Available 12/08/2024 10:29:10 04/01/20 24 04/01/2024 Basic metab olic 2000 panel - Serum or Plasm a anion gap in serum or plasma 7.5 text: 5 - 15 mmol/L ANION GAP 7.5 5 - 15 MMOL/ L 04/01 7:49 AM CDT [facility] Not Available Not Available 12/08/2024 10:29:10 04/01/20 24 04/01/2024 Basic metab olic 2000 panel - Serum or Plasm a urea nitrogen/cre atinine [mass ratio] in serum or plasma 12.9 low: 6high: 26 BUN CREAT ININE RATIO 12.9 6 - 26 04/01 7:49 AM CDT [facility] Not Available Not Available 12/08/2024 10:29:10 04/01/20 24 04/01/2024 Basic metab olic 2000 panel - Serum or Plasm a glomerular filtration rate/1.73 sq M.predicted [volume rate/area] in serum, plasma or blood by creatinine-b ased formula (CKD-epi 2020) text: >90 mL/min /1.73 M2 GFR ESTIM ATE >90 >90 ML/ND N/1.7 3 M2 04/01 7:49 AM CDT [facility] Not Available Not Available 12/08/2024 [...] 11.0 x10'3 /uL 04/01 7:14 AM CDT [facility] Not Available Not Available 12/08/2024 10:29:09 04/01/20 24 04/01/2024 CBC W Auto Diffe renti al panel - Blood erythrocytes [#/volume] in blood by automated count 4.88 text: 4.70 - 6.10 x10'6/ uL RBC 4.88 4.70 - 6.10 x10'6 /uL 04/01 7:14 AM CDT [facility] Not Available Not Available 12/08/2024 10:29:04/01/20 24 04/01/2024 CBC W Auto Diffe renti al panel - Blood hemoglobin [mass/volume ] in blood 14.4 text: 14.0 - 18.0 g/dL HGB 14.4 14.0 - 18.0 G/DL 04/01 7:14 AM CDT [facility] Not Available Not Available 12/08/2024 10:29:04/01/20 24 04/01/2024 CBC W Auto Diffe renti al panel - Blood hematocrit [volume fraction] of blood 43.7 % low: 43%hig h: 54% HCT 43.7 43.0 - 54.0 % 04/01 7:14 AM CDT [facility] Not Available Not Available 12/08/2024 10:29:04/01/20 24 04/01/2024 CBC W Auto Diffe renti al panel - Blood MCV [entitic volume] 89.5 text: 80.0 - 94.0 fL MCV 89.5 80.0 - 94.0 FL 04/01 7:14 AM CDT [facility] Not Available Not Available 12/08/2024 10:29:04/01/20 24 04/01/2024 CBC W Auto Diffe renti al panel - Blood MCH [entitic mass] 29.5 pg low: 27pghi gh: 31pg MCH 29.5 27.0 - 31.0 PG 04/01 7:14 AM CDT [facility] Not Available Not Available 12/08/2024 10:29:04/01/2004/01/2024 CBC W Auto Diffe renti al panel - Blood MCHC [mass/volume ] 33 text: 32.0 - 36.0 g/dL MCHC 33.0 32.0 - 36.0 G/DL 04/01 7:14 AM CDT [facility] Not Available Not Available 12/08/2024 10:29:04/01/20 24 04/01/2024 CBC W Auto Diffe renti al panel - Blood erythrocyte distribution width [entitic volume] by automated count 12.2 % low: 11.5%h igh: 14.5% RDW 12.2 11.5 - 14.5 % 04/01 7:14 AM CDT [facility] Not Available Not Available 12/08/2024 10:29:04/01/20 24 04/01/2024 CBC W Auto Diffe renti al panel - Blood platelets [#/volume] in blood 180 text: 130 - 400 x10'3/ uL PLT 180 130 - 400 x10'3 /uL 04/01 7:14 AM CDT [facility] Not Available Not Available 12/08/2024 10:29:04/01/20 24 04/01/2024 CBC W Auto Diffe renti al panel - Blood platelet mean volume [entitic volume] in blood 9.6 text: 9.3 - 12.2 fL MPV 9.6 9.3 - 12.2 FL 04/01 7:14 AM CDT [facility] Not Available Not Available 12/08/2024 10:29:04/01/20 24 04/01/2024 CBC W Auto Diffe renti al panel - Blood differential cell count method - blood AUTOMA TOSHIA DIFFER ENTIAL DIFFE RENTI AL TYPE AUTOM ATED DIFFE RENTI AL 04/01 7:14 AM CDT [facility] Not Available Not Available 12/08/2024 10:29:04/01/20 24 04/01/2024 CBC W Auto Diffe renti al panel - Blood neutrophils/ 100 leukocytes in blood by automated count 70.8 % NEUTR OPHIL S % 70.8 % 04/01 7:14 AM CDT [facility] Not Available Not Available 12/08/2024 10:29:04/01/20 24 04/01/2024 CBC W Auto Diffe renti al panel - Blood lymphocytes/ 100 leukocytes in blood by automated count 21.7 % LYMPH OCYTE S % 21.7 % 04/01 7:14 AM CDT [facility] Not Available Not Available 12/08/2024 10:29:04/01/20 24 04/01/2024 CBC W Auto Diffe renti al panel - Blood monocytes/10 0 leukocytes in blood by automated count 5.4 % MONOC YTES % 5.4 % 04/01 7:14 AM CDT [facility] Not Available Not Available 12/08/2024 10:29:04/01/20 24 04/01/2024 CBC W Auto Diffe renti al panel - Blood eosinophils/ 100 leukocytes in blood by automated count 1.2 % EOSIN OPHIL S 1.2 % 04/01 7:14 AM CDT [facility] Not Available Not Available 12/08/2024 10:29:04/01/20 24 04/01/2024 CBC W Auto Diffe renti al panel - Blood basophils/10 0 leukocytes in blood by automated count 0.4 % BASOP HILS 0.4 % 04/01 7:14 AM CDT [facility] Not Available Not Available 12/08/2024 10:29:04/01/20 24 04/01/2024 CBC W Auto Diffe renti al panel - Blood immature granulocytes /100 leukocytes in blood by automated count 0.5 % IMMAT URE GRANS % 0.5 % 04/01 7:14 AM CDT [facility] Not Available Not Available 12/08/2024 10:29:04/01/20 24 04/01/2024 CBC W Auto Diffe renti al panel - Blood neutrophils [#/volume] in blood 7.8 text: 1.80 - 7.70 x10'3/ uL high ABS. NEUTR OPHIL S 7.80 (H) 1.80 - 7.70 x10'3 /uL 04/01 7:14 AM CDT [facility] Not Available Not Available 12/08/2024 10:29:04/01/20 24 04/01/2024 CBC W Auto Diffe renti al panel - Blood lymphocytes [#/volume] in blood 2.38 text: 1.00 - 4.80 x10'3/ uL ABS. LYMPH OCYTE S 2.38 1.00 - 4.80 x10'3 /uL 04/01 7:14 AM CDT [facility] Not Available Not Available 12/08/2024 10:29:04/01/2004/01/2024 CBC W Auto Diffe renti al panel - Blood monocytes [#/volume] in blood 0.59 text: 0.30 - 0.82 x10'3/ uL ABS. MONOC YTES 0.59 0.30 - 0.82 x10'3 /uL 04/01 7:14 AM CDT [facility] Not Available Not Available 12/08/2024 10:29:04/01/20 24 04/01/2024 CBC W Auto Diffe renti al panel - Blood eosinophils [#/volume] in blood 0.13 text: 0.04 - 0.54 x10'3/ uL ABS. EOSIN OPHIL S 0.13 0.04 - 0.54 x10'3 /uL 04/01 7:14 AM CDT [facility] Not Available Not Available 12/08/2024 10:29:04/01/20 24 04/01/2024 CBC W Auto Diffe renti al panel - Blood basophils [#/volume] in blood 0.04 text: 0.01 - 0.08 x10'3/ uL ABS. BASOP HILS 0.04 0.01 - 0.08 x10'3 /uL 04/01 7:14 AM CDT [facility] Not Available Not Available 12/08/2024 10:29:04/01/20 04/01/2024 CBC W Auto Diffe renti al panel - Blood immature granulocytes [#/volume] in blood 0.05 text: 0.00 - 0.49 x10'3/ uL ABS. IMMAT URE GRANU LOCYT ES 0.05 0.00 - 0.49 x10'3 /uL 04/01 7:14 AM CDT [facility] Not Available Not Available 12/08/2024 10:29:04/01/2004/01/2024 CBC W Auto Diffe renti al panel - Blood interpretati on and review of laboratory results ABNORM AL Not Available Not Available 10:29:04/01/2004/01/2024 Lipid 1996 panel - Serum or Plasm a cholesterol [mass/volume ] in serum or plasma 154 text: <200 mg/dL MARK STERO L 154 <200 MG/DL 04/01 7:49 AM T [facility] Not Available Not Available 12/08/2024 10:29:09 04/01/20 24 04/01/2024 Lipid 1996 panel - Serum or Plasm a triglyceride [mass/volume ] in serum or plasma 191 text: <150 mg/dL high TRIGL YCERI BOBBI 191 (H) <150 MG/DL 04/01 7:49 AM [facility] Not Available Not Available 12/08/2024 10:29:04/01/20 24 04/01/2024 Lipid 1996 panel - Serum or Plasm a cholesterol in HDL [mass/volume ] in serum or plasma 30 text: >40.0 mg/dL low HDL 30 (L) >40.0 MG/DL 04/01 7:49 AM CDT [facility] Not Available Not Available 12/08/2024 10:29:09 04/01/20 24 04/01/2024 Lipid 1996 panel - Serum or Plasm a cholesterol in LDL [mass/volume ] in serum or plasma by calculation 86 text: <100 mg/dL LDL (CALC ULATE D) 86 <100 MG/DL 06/12 /2024 7:49 AM CDT [facility] Not Available Not Available 12/08/2024 10:29:04/01/20 24 04/01/2024 Lipid 1996 panel - Serum or Plasm a cholesterol non HDL [mass/volume ] in serum or plasma 124 text: <130 mg/dL NON HDL MARK STERO L 124 <130 MG/DL 04/01 7:49 AM CDT [facility] Not Available Not Available 12/08/2024 10:29:04/01/20 24 04/01/2024 Lipid 1996 panel - Serum or Plasm a cholesterol. total/choles terol in HDL [mass ratio] in serum or plasma 5.1 low: 0high: 4.5 high CHOL/ HDL RATIO 5.1 (H) 0.0 - 4.5 04/01 7:49 AM CDT [facility] Not Available Not Available 12/08/2024 10:29:04/01/20 24 04/01/2024 Lipid 1996 panel - Serum or Plasm a cholesterol in VLDL [mass/volume ] in serum or plasma by calculation 38 text: 5 - 55 mg/dL VLDL CALCU LATIO N 38 5 - 55 MG/DL 04/01 7:49 AM T [facility] Not Available Not Available 12/08/2024 10:29:04/01/20 24 04/01/2024 Lipid 1996 panel - Serum or Plasm a service comment LIPID INTER PRETA TION 04/01 7:49 AM T [facility] Not Available Not Available 12/08/2024 10:29:04/01/20 24 04/01/2024 Lipid 1996 panel - Serum or Plasm a interpretati on and review of laboratory results ABNORM AL Not Available Not Available 10:29:04/01/20 24 04/01/2024 Hemog lobin A1c/H emogl obin. total in Blood hemoglobin A1C/hemoglob in.total in blood 12.6 % high: 5.7% high HGB A1C 12.6 (H) <5.7 % 04/01 10:25 AM CDT [facility] Not Available Not Available 12/08/2024 10:29:04/01/20 24 04/01/2024 Hemog lobin A1c/H emogl obin. total in Blood glucose mean value [mass/volume ] in blood estimated from glycated hemoglobin 315 mg/dL ESTIM ATED AVG GLUCO SE 315 mg/dL 04/01 10:25 AM CDT [facility] Not Available Not Available 12/08/2024 [...] - 99 mg/dL 04/01 6:21 AM CDT [facility] Not Available Not Available 12/08/2024 [...] - 99 mg/dL 04/02 8:48 PM CDT [facility] Not Available Not Available 12/08/2024 10:29:04/02/20 24 04/02/2024 Gluco se [Mass /volu [...] - 99 mg/dL 04/02 4:21 PM CDT [facility] Not Available Not Available 12/08/2024 [...] - 99 mg/dL 04/02 11:45 AM CDT [facility] Not Available Not Available 12/08/2024 [...] 11.0 x10'3 /uL 04/02 8:20 AM CDT [facility] Not Available Not Available 12/08/2024 10:29:10 04/02/20 24 04/02/2024 CBC W Auto Diffe renti al panel - Blood erythrocytes [#/volume] in blood by automated count 4.91 text: 4.70 - 6.10 x10'6/ uL RBC 4.91 4.70 - 6.10 x10'6 /uL 04/02 8:20 AM CDT [facility] Not Available Not Available 12/08/2024 10:29:10 04/02/20 24 04/02/2024 CBC W Auto Diffe renti al panel - Blood hemoglobin [mass/volume ] in blood 14.7 text: 14.0 - 18.0 g/dL HGB 14.7 14.0 - 18.0 G/DL 04/02 8:20 AM CDT [facility] Not Available Not Available 12/08/2024 10:29:10 04/02/20 24 04/02/2024 CBC W Auto Diffe renti al panel - Blood hematocrit [volume fraction] of blood 43.5 % low: 43%hig h: 54% HCT 43.5 43.0 - 54.0 % 04/02 8:20 AM CDT [facility] Not Available Not Available 12/08/2024 10:29:10 04/02/20 24 04/02/2024 CBC W Auto Diffe renti al panel - Blood MCV [entitic volume] 88.6 text: 80.0 - 94.0 fL MCV 88.6 80.0 - 94.0 FL 04/02 8:20 AM CDT [facility] Not Available Not Available 12/08/2024 10:29:10 04/02/20 24 04/02/2024 CBC W Auto Diffe renti al panel - Blood MCH [entitic mass] 29.9 pg low: 27pghi gh: 31pg MCH 29.9 27.0 - 31.0 PG 04/02 8:20 AM CDT [facility] Not Available Not Available 12/08/2024 10:29:10 04/02/20 24 04/02/2024 CBC W Auto Diffe renti al panel - Blood MCHC [mass/volume ] 33.8 text: 32.0 - 36.0 g/dL MCHC 33.8 32.0 - 36.0 G/DL 04/02 8:20 AM CDT [facility] Not Available Not Available 12/08/2024 10:29:10 04/02/20 24 04/02/2024 CBC W Auto Diffe renti al panel - Blood erythrocyte distribution width [entitic volume] by automated count 12.3 % low: 11.5%h igh: 14.5% RDW 12.3 11.5 - 14.5 % 04/02 8:20 AM CDT [facility] Not Available Not Available 12/08/2024 10:29:10 04/02/20 24 04/02/2024 CBC W Auto Diffe renti al panel - Blood platelets [#/volume] in blood 200 text: 130 - 400 x10'3/ uL PLT 200 130 - 400 x10'3 /uL 04/02 8:20 AM CDT [facility] Not Available Not Available 12/08/2024 10:29:10 04/02/20 24 04/02/2024 CBC W Auto Diffe renti al panel - Blood platelet mean volume [entitic volume] in blood 9.8 text: 9.3 - 12.2 fL MPV 9.8 9.3 - 12.2 FL 04/02 8:20 AM CDT [facility] Not Available Not Available 12/08/2024 10:29:10 04/02/20 24 04/02/2024 CBC W Auto Diffe renti al panel - Blood differential cell count method - blood AUTOMA TOSHIA DIFFER ENTIAL DIFFE RENTI AL TYPE AUTOM ATED DIFFE RENTI AL 04/02 8:20 AM CDT [facility] Not Available Not Available 12/08/2024 10:29:10 04/02/20 24 04/02/2024 CBC W Auto Diffe renti al panel - Blood neutrophils/ 100 leukocytes in blood by automated count 63.4 % NEUTR OPHIL S % 63.4 % 04/02 8:20 AM CDT [facility] Not Available Not Available 12/08/2024 10:29:10 04/02/20 24 04/02/2024 CBC W Auto Diffe renti al panel - Blood lymphocytes/ 100 leukocytes in blood by automated count 26.3 % LYMPH OCYTE S % 26.3 % 04/02 8:20 AM CDT [facility] Not Available Not Available 12/08/2024 10:29:10 04/02/20 24 04/02/2024 CBC W Auto Diffe renti al panel - Blood monocytes/10 0 leukocytes in blood by automated count 8.2 % MONOC YTES % 8.2 % 04/02 8:20 AM T [facility] Not Available Not Available 12/08/2024 10:29:10 04/02/20 24 04/02/2024 CBC W Auto Diffe renti al panel - Blood eosinophils/ 100 leukocytes in blood by automated count 1.5 % EOSIN OPHIL S 1.5 % 04/02 8:20 AM T [facility] Not Available Not Available 12/08/2024 10:29:10 04/02/20 24 04/02/2024 CBC W Auto Diffe renti al panel - Blood basophils/10 0 leukocytes in blood by automated count 0.2 % BASOP HILS 0.2 % 04/02 8:20 AM CDT [facility] Not Available Not Available 12/08/2024 10:29:10 04/02/20 24 04/02/2024 CBC W Auto Diffe renti al panel - Blood immature granulocytes /100 leukocytes in blood by automated count 0.4 % IMMAT URE GRANS % 0.4 % 04/02 8:20 AM T [facility] Not Available Not Available 12/08/2024 10:29:10 04/02/20 24 04/02/2024 CBC W Auto Diffe renti al panel - Blood neutrophils [#/volume] in blood 5.65 text: 1.80 - 7.70 x10'3/ uL ABS. NEUTR OPHIL S 5.65 1.80 - 7.70 x10'3 /uL 04/02 8:20 AM CDT [facility] Not Available Not Available 12/08/2024 10:29:10 04/02/20 24 04/02/2024 CBC W Auto Diffe renti al panel - Blood lymphocytes [#/volume] in blood 2.34 text: 1.00 - 4.80 x10'3/ uL ABS. LYMPH OCYTE S 2.34 1.00 - 4.80 x10'3 /uL 04/02 8:20 AM CDT [facility] Not Available Not Available 12/08/2024 10:29:10 04/02/20 24 04/02/2024 CBC W Auto Diffe renti al panel - Blood monocytes [#/volume] in blood 0.73 text: 0.30 - 0.82 x10'3/ uL ABS. MONOC YTES 0.73 0.30 - 0.82 x10'3 /uL 04/02 8:20 AM CDT [facility] Not Available Not Available 12/08/2024 10:29:10 04/02/20 24 04/02/2024 CBC W Auto Diffe renti al panel - Blood eosinophils [#/volume] in blood 0.13 text: 0.04 - 0.54 x10'3/ uL ABS. EOSIN OPHIL S 0.13 0.04 - 0.54 x10'3 /uL 04/02 8:20 AM CDT [facility] Not Available Not Available 12/08/2024 10:29:10 04/02/20 24 04/02/2024 CBC W Auto Diffe renti al panel - Blood basophils [#/volume] in blood 0.02 text: 0.01 - 0.08 x10'3/ uL ABS. BASOP HILS 0.02 0.01 - 0.08 x10'3 /uL 04/02 8:20 AM CDT [facility] Not Available Not Available 12/08/2024 10:29:10 04/02/20 24 04/02/2024 CBC W Auto Diffe renti al panel - Blood immature granulocytes [#/volume] in blood 0.04 text: 0.00 - 0.49 x10'3/ uL ABS. IMMAT URE GRANU LOCYT ES 0.04 0.00 - 0.49 x10'3 /uL 04/02 8:20 AM CDT [facility] Not Available Not Available 12/08/2024 10:29:10 04/02/20 24 04/02/2024 Basic metab olic 2000 panel - Serum or Plasm a glucose [mass/volume ] in serum or plasma 137 text: 70 - 99 mg/dL high GLUCO SE 137 (H) 70 - 99 MG/DL 04/02 8:32 AM T [facility] Not Available Not Available 12/08/2024 10:29:10 04/02/20 24 04/02/2024 Basic metab olic 1999 panel - Serum or Plasm a urea nitrogen [mass/volume ] in serum or plasma 8 text: 7 - 18 mg/dL BUN 8 7 - 18 MG/DL 04/02 8:32 AM T [facility] Not Available Not Available 12/08/2024 10:29:10 04/02/20 24 04/02/2024 Basic metab olic 1999 panel - Serum or Plasm a creatinine [mass/volume ] in serum or plasma 0.9 text: 0.7 - 1.3 mg/dL CREAT ININE S/P/B 0.90 0.7 - 1.3 MG/DL 04/02 8:32 AM T [facility] Not Available Not Available 12/08/2024 10:29:10 04/02/20 24 04/02/2024 Basic metab olic 1999 panel - Serum or Plasm a sodium [moles/volum e] in serum or plasma 140 text: 136 - 145 mmol/L SODIU M S/P/B 140 136 - 145 MMOL/ L 04/02 8:32 AM CDT [facility] Not Available Not Available 12/08/2024 10:29:10 04/02/20 24 04/02/2024 Basic metab olic 2000 panel - Serum or Plasm a potassium [moles/volum e] in serum or plasma 3.8 text: 3.5 - 5.1 mmol/L POTAS SIUM S/P/B 3.8 3.5 - 5.1 MMOL/ L 04/02 8:32 AM CDT [facility] Not Available Not Available 12/08/2024 10:29:10 04/02/20 24 04/02/2024 Basic metab olic 2000 panel - Serum or Plasm a chloride [moles/volum e] in serum or plasma 108 text: 100 - 108 mmol/L CHLOR KATERIN S/P/B 108 100 - 108 MMOL/ L 04/02 8:32 AM CDT [facility] Not Available Not Available 12/08/2024 10:29:10 04/02/20 24 04/02/2024 Basic metab olic 2000 panel - Serum or Plasm a carbon dioxide, total [moles/volum e] in serum or plasma 23.6 text: 21 - 32 mmol/L CO2 23.6 21 - 32 MMOL/ L 04/02 8:32 AM CDT [facility] Not Available Not Available 12/08/2024 10:29:10 04/02/20 24 04/02/2024 Basic metab olic 2000 panel - Serum or Plasm a calcium [mass/volume ] in serum or plasma 8.8 text: 8.5 - 10.1 mg/dL CALCI UM S/P/B 8.8 8.5 - 10.1 MG/DL 04/02 8:32 AM CDT [facility] Not Available Not Available 12/08/2024 10:29:10 04/02/20 24 04/02/2024 Basic metab olic 2000 panel - Serum or Plasm a anion gap in serum or plasma 8.4 text: 5 - 15 mmol/L ANION GAP 8.4 5 - 15 MMOL/ L 04/02 8:32 AM CDT [facility] Not Available Not Available 12/08/2024 10:29:10 04/02/20 24 04/02/2024 Basic metab olic 2000 panel - Serum or Plasm a urea nitrogen/cre atinine [mass ratio] in serum or plasma 8.9 low: 6high: 26 BUN CREAT ININE RATIO 8.9 6 - 26 04/02 8:32 AM CDT [facility] [facility] Not Available Not Available 12/08/2024 10:29:10 04/02/20 24 04/02/2024 Basic metab olic 2000 panel - Serum or Plasm a glomerular filtration rate/1.73 sq M.predicted [volume rate/area] in serum, plasma or blood by creatinine-b ased formula (CKD-epi 2020) text: >90 mL/min /1.73 M2 GFR ESTIM ATE >90 >90 ML/ND N/1.7 3 M2 04/02 8:32 AM CDT [facility] Not Available Not Available 12/08/2024 [...] - 99 mg/dL 04/02 6:14 AM CDT [facility] Not Available Not Available 12/08/2024 10:29:10 09/30/20 24 09/30/2024 Gluco se [Mass /volu me] in Blood by Autom ated test strip glucose [mass/volume ] in blood by automated test strip 275 mg/dL low: 70mg/d Lhigh: 99mg/d L high GLUCO SE POC 275 (H) 70 - 99 mg/dL 09/30 5:48 PM [facility] Not Available Not Available 12/08/2024 10:29:00 [...] - 2.0 MMOL/ L 09/30 2:28 PM [facility] Not Available Not Available 12/08/2024 10:29:00 [...] 70 - 99 mg/dL 09/30 12:17 PM [facility] Not Available Not Available 12/08/2024 10:29:00 [...] 0.00 - 0.49 NG/ML 09/30 3:40 PM [employer] [facility] Not Available Not Available 12/08/2024 10:29:00 09/30/20 24 09/30/2024 Proca lcito christina [Mass /volu me] in Serum or Plasm a interpretati on and review of laboratory results ABNORM AL Not Available Not Available 10:29:00 09/30/2009/30/2024 Gas panel - Arter ial blood pH of blood 7.28 low: 7.35hi gh: 7.45 low PH ARTER IAL 7.28 (L) 7.35 - 7.45 09/30 2:50 PM [employer] [facility] Not Available Not Available 12/08/2024 10:29:00 09/30/20 24 09/30/2024 Gas panel - Arter ial blood carbon dioxide [partial pressure] in blood 50 text: 35.0 - 45.0 mmHg high PCO2 50.0 (H) 35.0 - 45.0 MMHG 09/30 2:50 PM [employer] [facility] Not Available Not Available 12/08/2024 10:29:00 09/30/20 24 09/30/2024 Gas panel - Arter ial blood oxygen [partial pressure] in blood 240 text: 83.0 - 108.0 mmHg high PO2 240.0 (H) 83.0 - 108.0 MMHG 09/30 2:50 PM [employer] [facility] Not Available Not Available 12/08/2024 10:29:00 09/30/20 24 09/30/2024 Gas panel - Arter ial blood carbon dioxide, total [moles/volum e] in blood 25 text: 19.0 - 24.0 mmol/L high TOTAL CO2 ARTER IAL 25.0 (H) 19.0 - 24.0 MMOL/ L 09/30 2:50 PM [employer] [facility] Not Available Not Available 12/08/2024 10:29:00 09/30/20 24 09/30/2024 Gas panel - Arter ial blood base deficit in arterial blood 3.7 text: 0.0 - 3.0 mmol/L high BASE DEFIC IT 3.7 (H) 0.0 - 3.0 MMOL/ L 09/30 2:50 PM [employer] [facility] Not Available Not Available 12/08/2024 10:29:00 09/30/20 24 09/30/2024 Gas panel - Arter ial blood oxygen saturation in blood 100 % low: 94%hig h: 98% high O2 SATUR ATION 100 (H) 94.0 - 98.0 % 09/30 2:50 PM [employer] [facility] Not Available Not Available 12/08/2024 10:29:00 09/30/20 24 09/30/2024 Gas panel - Arter ial blood bicarbonate [moles/volum e] in blood 23.5 text: 21.0 - 28.0 mmol/L BICAR B ARTER IAL 23.5 21.0 - 28.0 MMOL/ L 09/30 2:50 PM [employer] [facility] Not Available Not Available 12/08/2024 10:29:00 09/30/20 24 09/30/2024 Gas panel - Arter ial blood arterial patency wrist artery --pre arterial puncture RITIKA TEST PERFOR MED RITIKA TEST RITIKA TEST PERFO RMED 09/30 2:46 PM [employer] [facility] Not Available Not Available 12/08/2024 10:29:00 09/30/20 24 09/30/2024 Gas panel - Arter ial blood service comment 60 O2 ADMIN ARTER IAL 60 09/30 2:46 PM [employer] [facility] Not Available Not Available 12/08/2024 10:29:00 09/30/20 24 09/30/2024 Gas panel - Arter ial blood specimen site narrative LT RADIAL DRAW SITE ARTER IAL LT RADIA L 09/30 2:46 PM [employer] [facility] Not Available Not Available 12/08/2024 [...] 70 - 99 mg/dL 09/30 7:09 AM [employer]ICE [employer] [facility] Not Available Not Available 12/08/2024 [...] DESCR IPTIO N NASAL 09/30 6:48 AM [employer] [facility] Not Available Not Available 12/08/2024 10:29:00 09/30/20 24 10/01/2024 Methi cilli n resis tant Staph yloco ccus aureu s [Pres ence] in Speci men by Organ ism speci fic cultu re service comment NO SPECIA L REQUES T SPECI AL REQUE STS NO SPECI AL REQUE ST 09/30 6:48 AM [employer]ICE [employer] [facility] Not Available Not Available 12/08/2024 [...] AUREU S ISOLA TOSHIA 10/01 7:06 AM [facility] Not Available Not Available 12/08/2024 10:29:00 09/30/20 24 09/30/2024 Gluco se [Mass /volu me] in Blood by Autom ated test strip glucose [mass/volume ] in blood by automated test strip 445 mg/dL low: 70mg/d Lhigh: 99mg/d L critical high GLUCO SE POC 445 (HH) 70 - 99 mg/dL 09/30 5:05 AM [facility] Not Available Not Available 12/08/2024 10:29:00 [...] - 2.0 MMOL/ L 09/30 5:36 AM [facility] Not Available Not Available 12/08/2024 10:29:00 [...] TOSHIA NOT DETEC TOSHIA 09/30 6:18 AM [employer]ICE [employer] [facility] Not Available Not Available 12/08/2024 [...] TOSHIA NOT DETEC TOSHIA 09/30 6:18 AM [employer]ICE [employer] [facility] Not Available Not Available 12/08/2024 [...] TOSHIA NOT DETEC TOSHIA 09/30 6:18 AM [employer]ICE [employer] [facility] Not Available Not Available 12/08/2024 [...] TOSHIA NOT DETEC TOSHIA 09/30 6:18 AM [employer]ICE [employer] [facility] Not Available Not Available 12/08/2024 [...] TOSHIA NOT DETEC TOSHIA 09/30 6:18 AM [employer]ICE [employer] [facility] Not Available Not Available 12/08/2024 [...] TOSHIA NOT DETEC TOSHIA 09/30 6:18 AM [employer]ICE [employer] [facility] Not Available Not Available 12/08/2024 [...] (A) NOT DETEC TOSHIA 09/30 6:18 AM [employer]ICE [employer] [facility] Not Available Not Available 12/08/2024 [...] TOSHIA NOT DETEC TOSHIA 09/30 6:18 AM [employer]ICE [employer] [facility] Not Available Not Available 12/08/2024 [...] TOSHIA NOT DETEC TOSHIA 09/30 6:18 AM [employer]ICE [employer] [facility] Not Available Not Available 12/08/2024 [...] TOSHIA NOT DETEC TOSHIA 09/30 6:18 AM [employer]ICE [employer] [facility] Not Available Not Available 12/08/2024 [...] TOSHIA NOT DETEC TOSHIA 09/30 6:18 AM [employer]ICE [employer] [facility] Not Available Not Available 12/08/2024 [...] TOSHIA NOT DETEC TOSHIA 09/30 6:18 AM [employer]ICE [employer] [facility] Not Available Not Available 12/08/2024 [...] TOSHIA NOT DETEC TOSHIA 09/30 6:18 AM [employer]ICE [employer] [facility] Not Available Not Available 12/08/2024 [...] TOSHIA NOT DETEC TOSHIA 09/30 6:18 AM [employer]ICE [employer] [facility] Not Available Not Available 12/08/2024 [...] TOSHIA NOT DETEC TOSHIA 09/30 6:18 AM [employer]ICE [employer] [facility] Not Available Not Available 12/08/2024 [...] TOSHIA NOT DETEC TOSHIA 09/30 6:18 AM [employer]ICE [employer] [facility] Not Available Not Available 12/08/2024 [...] TOSHIA NOT DETEC TOSHIA 09/30 6:18 AM [employer]ICE [employer] [facility] Not Available Not Available 12/08/2024 [...] TOSHIA NOT DETEC TOSHIA 09/30 6:18 AM [employer]ICE [employer] [facility] Not Available Not Available 12/08/2024 [...] TOSHIA NOT DETEC TOSHIA 09/30 6:18 AM [employer]ICE [employer] [facility] Not Available Not Available 12/08/2024 [...] DESCR IPTIO N BLOOD 09/30 3:25 AM [employer] [facility] Not Available Not Available 12/08/2024 10:28:59 09/30/20 24 10/05/2024 Bacte lala ident ified in Blood by Cultu re service comment NO SPECIA L REQUES T SPECI AL REQUE STS NO SPECI AL REQUE ST 09/30 3:25 AM [employer] [facility] Not Available Not Available 12/08/2024 10:28:59 09/30/20 24 10/05/2024 Bacte lala ident ified in Blood by Cultu re bacteria identified in specimen by culture NO GROWTH 5 DAYS CULTU RE RESUL T NO GROWT H 5 DAYS 10/05 7:11 AM [facility] Not Available Not Available 12/08/2024 10:28:59 09/30/20 24 09/30/2024 Drugs of abuse panel - Urine by Scree n metho d amphetamine [presence] in urine by screen method NEGATI VE text: negati ve AMPHE TAMIN E (U) NEGAT GABY NEGAT GABY 09/30 5:29 AM [facility] Not Available Not Available 12/08/2024 10:28:59 09/30/20 24 09/30/2024 Drugs of abuse panel - Urine by Scree n metho d barbiturate screen present [identifier] in urine NEGATI VE text: negati ve CRISTO TURAT ES SCREE N (U) NEGAT GABY NEGAT GABY 09/30 5:29 AM [facility] Not Available Not Available 12/08/2024 10:28:59 09/30/20 24 09/30/2024 Drugs of abuse panel - Urine by Scree n metho d benzodiazepi elzbieta [presence] in urine by screen method NEGATI VE text: negati ve BENZO DIAZE PINES SCREE N (U) NEGAT GABY NEGAT GABY 09/30 5:29 AM [facility] Not Available Not Available 12/08/2024 10:28:59 09/30/20 24 09/30/2024 Drugs of abuse panel - Urine by Scree n metho d cannabinoids [presence] in urine by screen method NEGATI VE text: negati ve CANNA BINOI DS SCREE N (U) NEGAT GABY NEGAT GABY 09/30 5:29 AM [facility] Not Available Not Available 12/08/2024 10:28:59 09/30/20 24 09/30/2024 Drugs of abuse panel - Urine by Scree n metho d cocaine [presence] in urine by screen method NEGATI VE text: negati ve COCAI NE METAB OLITE S (U) NEGAT GABY NEGAT GABY 09/30 5:29 AM [facility] Not Available Not Available 12/08/2024 10:28:59 09/30/20 24 09/30/2024 Drugs of abuse panel - Urine by Scree n metho d methadone [presence] in urine NEGATI VE text: negati ve METHA DONE (U) NEGAT GABY NEGAT GABY 09/30 5:29 AM [facility] Not Available Not Available 12/08/2024 10:28:59 09/30/20 24 09/30/2024 Drugs of abuse panel - Urine by Scree n metho d opiates [presence] in urine NEGATI VE text: negati ve OPIAT E SCREE N (U) NEGAT GABY NEGAT GABY 09/30 5:29 AM [facility] Not Available Not Available 12/08/2024 10:28:59 09/30/20 24 09/30/2024 Drugs of abuse panel - Urine by Scree n metho d phencyclidin e [presence] in urine NEGATI VE text: negati ve PHENC YCLID INE PCP (U) NEGAT GABY NEGAT GABY 09/30 5:29 AM [facility] Not Available Not Available 12/08/2024 10:28:59 09/30/20 24 09/30/2024 Drugs of abuse panel - Urine by Scree n metho d creatinine [mass/volume ] in urine 118 text: 39 - 259 mg/dL CREAT ININE (U) 118.0 39 - 259 MG/DL 09/30 5:29 AM [facility] Not Available Not Available 12/08/2024 10:28:59 09/30/20 24 09/30/2024 Urina lysis dipst ick W Refle x Micro scopi c panel - Urine collection method - specimen URINE CLEAN CATCH SPECI MEN TYPE URINE CLEAN CATCH 09/30 4:40 AM [employer] [facility] Not Available Not Available 12/08/2024 10:28:59 09/30/20 24 09/30/2024 Urina lysis dipst ick W Refle x Micro scopi c panel - Urine color of urine YELLOW COLOR (U) YELLO W 09/30 5:28 AM [facility] Not Available Not Available 12/08/2024 10:28:59 09/30/20 24 09/30/2024 Urina lysis dipst ick W Refle x Micro scopi c panel - Urine clarity of urine CLEAR TRANS PAREN CY CLEAR 09/30 5:28 AM [facility] Not Available Not Available 12/08/2024 10:28:59 09/30/20 24 09/30/2024 Urina lysis dipst ick W Refle x Micro scopi c panel - Urine specific gravity of urine 1.035 low: 1.001h igh: 1.03 high SPECI FIC GRAVI TY (U) 1.035 (H) 1.001 - 1.030 09/30 5:28 AM [facility] Not Available Not Available 12/08/2024 10:28:59 09/30/20 24 09/30/2024 Urina lysis dipst ick W Refle x Micro scopi c panel - Urine pH of urine 5.5 low: 5high: 9 U PH 5.5 5.0 - 9.0 09/30 5:28 AM [facility] Not Available Not Available 12/08/2024 10:28:59 09/30/20 24 09/30/2024 Urina lysis dipst ick W Refle x Micro scopi c panel - Urine leukocytes [#/volume] in urine by test strip NEGATI VE text: negati ve LEUKO CYTES (U) NEGAT GABY NEGAT GABY 09/30 5:28 AM [facility] Not Available Not Available 12/08/2024 10:28:59 09/30/20 24 09/30/2024 Urina lysis dipst ick W Refle x Micro scopi c panel - Urine nitrite [presence] in urine NEGATI VE text: negati ve NITRI TINA NEGAT GABY NEGAT GABY 09/30 5:28 AM [facility] Not Available Not Available 12/08/2024 10:28:59 09/30/20 24 09/30/2024 Urina lysis dipst ick W Refle x Micro scopi c panel - Urine protein [mass/volume ] in urine by test strip 200 text: <30 mg/dL high PROTE IN RANDO M (U) 200 (H) <30 MG/DL 09/30 5:28 AM [facility] Not Available Not Available 12/08/2024 10:28:59 09/30/20 24 09/30/2024 Urina lysis dipst ick W Refle x Micro scopi c panel - Urine glucose [mass/volume ] in urine >1000 text: normal mg/dL abnormal GLUCO SE (U) >1000 (A) MILTON L MG/DL 09/30 5:28 AM [facility] Not Available Not Available 12/08/2024 10:28:59 09/30/20 24 09/30/2024 Urina lysis dipst ick W Refle x Micro scopi c panel - Urine ketones [mass/volume ] in urine by test strip NEGATI VE text: negati ve mg/dL KETON ES MG/DL (U) NEGAT GABY NEGAT GABY MG/DL 09/30 5:28 AM [facility] Not Available Not Available 12/08/2024 10:28:59 09/30/20 24 09/30/2024 Urina lysis dipst ick W Refle x Micro scopi c panel - Urine urobilinogen [units/volum e] in urine by test strip NORMAL text: normal mg/dL UROBI LINOG EN MILTON L MILTON L MG/DL 09/30 5:28 AM [facility] Not Available Not Available 12/08/2024 10:28:59 09/30/20 24 09/30/2024 Urina lysis dipst ick W Refle x Micro scopi c panel - Urine bilirubin.to doni [mass/volume ] in urine NEGATI VE text: negati ve mg/dL BILIR UBIN (U) NEGAT GABY NEGAT GABY MG/DL 09/30 5:28 AM [facility] Not Available Not Available 12/08/2024 10:28:59 09/30/20 24 09/30/2024 Urina lysis dipst ick W Refle x Micro scopi c panel - Urine erythrocytes [#/volume] in urine by automated test strip TRACE text: negati ve abnormal BLOOD (U) TRACE (A) NEGAT GABY 09/30 5:28 AM [facility] Not Available Not Available 12/08/2024 10:28:59 09/30/20 24 09/30/2024 Urina lysis dipst ick W Refle x Micro scopi c panel - Urine mucus [#/area] in urine sediment by microscopy low power field RARE text: /lpf MUCUS RARE /LPF 09/30 5:28 AM [facility] Not Available Not Available 12/08/2024 10:28:59 09/30/20 24 09/30/2024 Urina lysis dipst ick W Refle x Micro scopi c panel - Urine hyaline casts [#/area] in urine sediment by microscopy low power field FEW text: /lpf HYALI NE CASTS FEW /LPF 09/30 5:28 AM [facility] Not Available Not Available 12/08/2024 10:28:59 09/30/20 24 09/30/2024 Urina lysis dipst ick W Refle x Micro scopi c panel - Urine granular casts [#/area] in urine sediment by microscopy low power field MODERA TE text: none /lpf abnormal GRANU LAR CASTS MODER ATE (A) NONE /LPF 09/30 5:28 AM [facility] Not Available Not Available 12/08/2024 10:28:59 09/30/20 24 09/30/2024 Urina lysis dipst ick W Refle x Micro scopi c panel - Urine leukocytes [#/area] in urine sediment by microscopy high power field 6 text: <6 /hpf high WBC/H PF 6 (H) <6 /HPF 09/30 5:28 AM [facility] Not Available Not Available 12/08/2024 10:28:59 09/30/20 24 09/30/2024 Urina lysis dipst ick W Refle x Micro scopi c panel - Urine erythrocytes [#/area] in urine sediment by microscopy high power field 6 text: <6 /hpf high RBC/H PF 6 (H) <6 /HPF 09/30 5:28 AM [facility] Not Available Not Available 12/08/2024 10:28:59 09/30/20 24 09/30/2024 Urina lysis dipst ick W Refle x Micro scopi c panel - Urine epithelial cells.squ[place] us [#/area] in urine sediment by microscopy high power field RARE text: /hpf SQUAM OUS EPITH ELIAL S RARE /HPF 09/30 5:28 AM [facility] Not Available Not Available [...] (L) 7.35 - 7.45 09/30 2:38 AM [facility] Not Available Not Available 12/08/2024 10:28:59 09/30/20 24 09/30/2024 Gas panel - Arter ial blood carbon dioxide [partial pressure] in blood 67 text: 35.0 - 45.0 mmHg high PCO2 67.0 (H) 35.0 - 45.0 MMHG 09/30 2:38 AM [facility]OWER[facility] Huizar [facility] Not Available Not Available 12/08/2024 10:28:59 09/30/20 24 09/30/2024 Gas panel - Arter ial blood oxygen [partial pressure] in blood 182 text: 83.0 - 108.0 mmHg high PO2 182.0 (H) 83.0 - 108.0 MMHG 09/30 2:38 AM [facility] Hu[facility] Not Available Not Available 12/08/2024 10:28:59 09/30/20 24 09/30/2024 Gas panel - Arter ial blood carbon dioxide, total [moles/volum e] in blood 28.3 text: 19.0 - 24.0 mmol/L high TOTAL CO2 ARTER IAL 28.3 (H) 19.0 - 24.0 MMOL/ L 09/30 2:38 AM [facility] Not Available Not Available 12/08/2024 10:28:59 09/30/20 24 09/30/2024 Gas panel - Arter ial blood base deficit in arterial blood 3.3 text: 0.0 - 3.0 mmol/L high BASE DEFIC IT 3.3 (H) 0.0 - 3.0 MMOL/ L 09/30 2:38 AM [facility]OWER[facility] Not Available Not Available 12/08/2024 10:28:59 09/30/20 24 09/30/2024 Gas panel - Arter ial blood oxygen saturation in blood 99 % low: 94%hig h: 98% high O2 SATUR ATION 99 (H) 94.0 - 98.0 % 09/30 2:38 AM [facility] Not Available Not Available 12/08/2024 10:28:59 09/30/20 24 09/30/2024 Gas panel - Arter ial blood bicarbonate [moles/volum e] in blood 26.2 text: 21.0 - 28.0 mmol/L BICAR B ARTER IAL 26.2 21.0 - 28.0 MMOL/ L 09/30 2:38 AM [employer] [facility] Not Available Not Available 12/08/2024 10:28:59 09/30/20 24 09/30/2024 Gas panel - Arter ial blood service comment 100 O2 ADMIN ARTER IAL 100 09/30 2:35 AM [employer] [facility] Not Available Not Available 12/08/2024 10:28:59 09/30/20 24 09/30/2024 Gas panel - Arter ial blood specimen site narrative RT RADIAL DRAW SITE ARTER IAL RT RADIA L 09/30 2:35 AM [employer] [facility] Not Available Not Available [...] - 2.0 MMOL/ L 09/30 3:24 AM [employer] [facility] Not Available Not Available [...] 3,849 (H) <125 PG/ML 09/30 3:17 AM [facility] Not Available Not Available 12/08/2024 10:28:59 [...] - 3.74 uIU/M L 09/30 3:05 AM [facility] Not Available Not Available 12/08/2024 10:28:59 09/30/20 24 09/30/2024 Magne sium [Mass /volu me] in Serum or Plasm a magnesium [mass/volume ] in serum or plasma 2 text: 1.8 - 2.4 mg/dL MAGNE SIUM 2.0 1.8 - 2.4 MG/DL 09/30 3:05 AM [facility] Not Available Not Available 12/08/2024 10:28:59 09/30/20 24 09/30/2024 Compr ehens gaby metab olic 2000 panel - Serum or Plasm a glucose [mass/volume ] in serum or plasma 278 text: 70 - 99 mg/dL high GLUCO SE 278 (H) 70 - 99 MG/DL 09/30 3:05 AM [facility] Not Available Not Available 12/08/2024 10:28:59 09/30/20 24 09/30/2024 Compr ehens gaby metab olic 1999 panel - Serum or Plasm a urea nitrogen [mass/volume ] in serum or plasma 10 text: 7 - 18 mg/dL BUN 10 7 - 18 MG/DL 09/30 3:05 AM [facility] Not Available Not Available 12/08/2024 10:28:59 09/30/20 24 09/30/2024 Compr ehens gaby metab olic 1999 panel - Serum or Plasm a creatinine [mass/volume ] in serum or plasma 0.9 text: 0.7 - 1.3 mg/dL CREAT ININE S/P/B 0.90 0.7 - 1.3 MG/DL 09/30 3:05 AM [facility] Not Available Not Available 12/08/2024 10:28:59 09/30/20 24 09/30/2024 Compr ehens gaby metab olic 2000 panel - Serum or Plasm a sodium [moles/volum e] in serum or plasma 139 text: 136 - 145 mmol/L SODIU M S/P/B 139 136 - 145 MMOL/ L 09/30 3:05 AM [facility] Not Available Not Available 12/08/2024 10:28:59 09/30/20 24 09/30/2024 Compr ehens gaby metab olic 2000 panel - Serum or Plasm a potassium [moles/volum e] in serum or plasma 4.4 text: 3.5 - 5.1 mmol/L POTAS SIUM S/P/B 4.4 3.5 - 5.1 MMOL/ L 09/30 3:05 AM [facility] Not Available Not Available 12/08/2024 10:28:59 09/30/20 24 09/30/2024 Compr ehens gaby metab olic 2000 panel - Serum or Plasm a chloride [moles/volum e] in serum or plasma 107 text: 97 - 115 mmol/L CHLOR KATERIN S/P/B 107 97 - 115 MMOL/ L 09/30 3:05 AM [employer] [facility] Not Available Not Available 12/08/2024 10:28:59 09/30/20 24 09/30/2024 Compr ehens gaby metab olic 2000 panel - Serum or Plasm a carbon dioxide, total [moles/volum e] in serum or plasma 22.3 text: 21 - 32 mmol/L CO2 22.3 21 - 32 MMOL/ L 09/30 3:05 AM [facility] Not Available Not Available 12/08/2024 10:28:59 09/30/20 24 09/30/2024 Compr ehens gaby metab olic 2000 panel - Serum or Plasm a calcium [mass/volume ] in serum or plasma 8.6 text: 8.5 - 10.1 mg/dL CALCI UM S/P/B 8.6 8.5 - 10.1 MG/DL 09/30 3:05 AM [facility] Not Available Not Available 12/08/2024 10:28:59 09/30/20 24 09/30/2024 Compr ehens gaby metab olic 2000 panel - Serum or Plasm a bilirubin.to doni [mass/volume ] in serum or plasma 0.3 text: 0.2 - 1.2 mg/dL BILIR UBIN TOTAL S/P/B 0.3 0.2 - 1.2 MG/DL 09/30 3:05 AM [facility] Not Available Not Available 12/08/2024 10:28:59 09/30/20 24 09/30/2024 Compr ehens gaby metab olic 2000 panel - Serum or Plasm a protein [mass/volume ] in serum or plasma 8.1 text: 6.4 - 8.2 g/dL TOTAL PROTE IN S/P/B 8.1 6.4 - 8.2 G/DL 09/30 3:05 AM [facility] Not Available Not Available 12/08/2024 10:28:59 09/30/20 24 09/30/2024 Compr ehens gaby metab olic 2000 panel - Serum or Plasm a albumin [mass/volume ] in serum or plasma 3.5 text: 3.4 - 5.0 g/dL ALBUM IN S/P/B 3.5 3.4 - 5.0 G/DL 09/30 3:05 AM [facility] Not Available Not Available 12/08/2024 10:28:59 09/30/20 24 09/30/2024 Compr ehens gaby metab olic 1999 panel - Serum or Plasm a aspartate aminotransfe rase [enzymatic activity/vol ume] in serum or plasma 21 U/L low: 15U/Lh igh: 37U/L AST 21 15 - 37 U/L 09/30 3:05 AM [facility] Not Available Not Available 12/08/2024 10:28:59 09/30/20 24 09/30/2024 Compr ehens gaby metab olic 2000 panel - Serum or Plasm a alanine aminotransfe rase [enzymatic activity/vol ume] in serum or plasma 22 U/L low: 16U/Lh igh: 60U/L ALT 22 16 - 60 U/L 09/30 3:05 AM [facility] Not Available Not Available 12/08/2024 10:28:59 09/30/20 24 09/30/2024 Compr ehens gaby metab olic 2000 panel - Serum or Plasm a alkaline phosphatase [enzymatic activity/vol ume] in serum or plasma 126 U/L low: 50U/Lh igh: 136U/L ALKAL INE PHOSP HATAS E S/P/B 126 50 - 136 U/L 09/30 3:05 AM [facility] Not Available Not Available 12/08/2024 10:28:59 09/30/20 24 09/30/2024 Compr ehens gaby metab olic 2000 panel - Serum or Plasm a anion gap in serum or plasma 9.7 text: 2 - 10 mmol/L ANION GAP 9.7 2 - 10 MMOL/ L 09/30 3:05 AM [facility] Not Available Not Available 12/08/2024 10:28:59 09/30/20 24 09/30/2024 Compr ehens gaby metab olic 1999 panel - Serum or Plasm a urea nitrogen/cre atinine [mass ratio] in serum or plasma 11.1 low: 6high: 26 BUN CREAT ININE RATIO 11.1 6 - 26 09/30 3:05 AM [facility] Not Available Not Available 12/08/2024 10:28:59 09/30/20 24 09/30/2024 [facility] ehens gaby metab olic 2000 panel - Serum or Plasm a albumin/glob ulin [mass ratio] in serum or plasma 0.8 text: 1.0 - 2.0 ratio low A/G RATIO 0.8 (L) 1.0 - 2.0 RATIO 09/30 3:05 AM [facility] Not Available Not Available 12/08/2024 10:28:59 09/30/20 24 09/30/2024 [facility] ehens gaby metab olic 2000 panel - Serum or Plasm a glomerular filtration rate/1.73 sq M.predicted [volume rate/area] in serum, plasma or blood by creatinine-b ased formula (CKD-epi 2020) text: >90 mL/min /1.73 M2 GFR ESTIM ATE >90 >90 ML/ND N/1.7 3 M2 09/30 3:05 AM [facility] Not Available Not Available 12/08/2024 10:28:59 09/30/20 24 09/30/[facility] - Serum or Plasm a interpretati on and review of laboratory results ABNORM AL Not Available Not Available 10:28:59 09/30/20 24 09/30/2024 aPTT in Plate let poor plasm a by Coagu latio n assay APTT in platelet poor plasma by coagulation assay 25.9 text: 25.1 - 36.5 sec PTT 25.9 25.1 - 36.5 SEC 09/30 3:02 AM [facility] Not Available Not Available 12/08/2024 10:28:58 09/30/20 24 09/30/2024 Proth rombi n time (PT) prothrombin time (PT) 10.1 text: 10.2 - 12.9 sec low PROTI ME 10.1 (L) 10.2 - 12.9 SEC 09/30 3:02 AM [facility] Not Available Not Available 12/08/2024 10:28:58 09/30/20 24 09/30/2024 Proth rombi n time (PT) INR in platelet poor plasma by coagulation assay 0.9 INR 0.9 09/30 3:02 AM [facility] Not Available Not Available 12/08/2024 10:28:58 [...] - 11.0 x10'3 /uL 09/30 2:35 AM [facility] Not Available Not Available 12/08/2024 10:28:58 09/30/20 24 09/30/2024 CBC W Auto Diffe renti al panel - Blood erythrocytes [#/volume] in blood by automated count 5.69 text: 4.70 - 6.10 x10'6/ uL RBC 5.69 4.70 - 6.10 x10'6 /uL 09/30 2:35 AM [facility] Not Available Not Available 12/08/2024 10:28:58 09/30/20 24 09/30/2024 CBC W Auto Diffe renti al panel - Blood hemoglobin [mass/volume ] in blood 16.9 text: 14.0 - 18.0 g/dL HGB 16.9 14.0 - 18.0 G/DL 09/30 2:35 AM [facility] Not Available Not Available 12/08/2024 10:28:58 09/30/20 24 09/30/2024 CBC W Auto Diffe renti al panel - Blood hematocrit [volume fraction] of blood 52.4 % low: 43%hig h: 54% HCT 52.4 43.0 - 54.0 % 09/30 2:35 AM [facility] Not Available Not Available 12/08/2024 10:28:58 09/30/20 24 09/30/2024 CBC W Auto Diffe renti al panel - Blood MCV [entitic volume] 92.1 text: 80.0 - 94.0 fL MCV 92.1 80.0 - 94.0 FL 09/30 2:35 AM [facility] Not Available Not Available 12/08/2024 10:28:58 09/30/20 24 09/30/2024 CBC W Auto Diffe renti al panel - Blood MCH [entitic mass] 29.7 pg low: 27pghi gh: 31pg MCH 29.7 27.0 - 31.0 PG 09/30 2:35 AM [employer] [facility] Not Available Not Available 12/08/2024 10:28:58 09/30/20 24 09/30/2024 CBC W Auto Diffe renti al panel - Blood MCHC [mass/volume ] 32.3 text: 32.0 - 36.0 g/dL MCHC 32.3 32.0 - 36.0 G/DL 09/30 2:35 AM [facility] Not Available Not Available 12/08/2024 10:28:58 09/30/20 24 09/30/2024 CBC W Auto Diffe renti al panel - Blood erythrocyte distribution width [entitic volume] by automated count 12.3 % low: 11.5%h igh: 14.5% RDW 12.3 11.5 - 14.5 % 09/30 2:35 AM [facility] Not Available Not Available 12/08/2024 10:28:58 09/30/20 24 09/30/2024 CBC W Auto Diffe renti al panel - Blood platelets [#/volume] in blood 330 text: 130 - 400 x10'3/ uL PLT 330 130 - 400 x10'3 /uL 09/30 2:35 AM [facility] Not Available Not Available 12/08/2024 10:28:58 09/30/20 24 09/30/2024 CBC W Auto Diffe renti al panel - Blood platelet mean volume [entitic volume] in blood 9.8 text: 9.3 - 12.2 fL MPV 9.8 9.3 - 12.2 FL 09/30 2:35 AM [facility] Not Available Not Available 12/08/2024 10:28:58 09/30/20 24 09/30/2024 CBC W Auto Diffe renti al panel - Blood differential cell count method - blood MANUAL DIFFER ENTIAL DIFFE RENTI AL TYPE MANUA L DIFFE RENTI AL 09/30 3:10 AM [facility] Not Available Not Available 12/08/2024 10:28:58 09/30/20 24 09/30/2024 CBC W Auto Diffe renti al panel - Blood segmented neutrophils/ 100 leukocytes in blood by manual count 59 % SEG NEUTR OPHIL S 59 % 09/30 3:10 AM [facility] Not Available Not Available 12/08/2024 10:28:58 09/30/20 24 09/30/2024 CBC W Auto Diffe renti al panel - Blood lymphocytes/ 100 leukocytes in blood by manual count 35 % LYMPH OCYTE S 35 % 09/30 3:10 AM [facility] Not Available Not Available 12/08/2024 10:28:58 09/30/20 24 09/30/2024 CBC W Auto Diffe renti al panel - Blood monocytes/10 0 leukocytes in blood by manual count 5 % MONOC YTES 5 % 09/30 3:10 AM [employer] [facility] Not Available Not Available 12/08/2024 10:28:58 09/30/20 24 09/30/2024 CBC W Auto Diffe renti al panel - Blood eosinophils/ 100 leukocytes in blood by manual count 1 % EOSIN OPHIL S 1 % 09/30 3:10 AM [facility] Not Available Not Available 12/08/2024 10:28:58 09/30/20 24 09/30/2024 CBC W Auto Diffe renti al panel - Blood neutrophils [#/volume] in blood 11.37 text: 1.80 - 7.70 x10'3/ uL high ABS. NEUTR OPHIL S 11.37 (H) 1.80 - 7.70 x10'3 /uL 09/30 3:10 AM [facility] Not Available Not Available 12/08/2024 10:28:58 09/30/20 24 09/30/2024 CBC W Auto Diffe renti al panel - Blood lymphocytes [#/volume] in blood 6.74 text: 1.00 - 4.80 x10'3/ uL high ABS. LYMPH OCYTE S 6.74 (H) 1.00 - 4.80 x10'3 /uL 09/30 3:10 AM [employer] [facility] Not Available Not Available 12/08/2024 10:28:58 09/30/20 24 09/30/2024 CBC W Auto Diffe renti al panel - Blood monocytes [#/volume] in blood 0.96 text: 0.30 - 0.82 x10'3/ uL high ABS. MONOC YTES 0.96 (H) 0.30 - 0.82 x10'3 /uL 09/30 3:10 AM [employer] [facility] Not Available Not Available 12/08/2024 10:28:58 09/30/20 24 09/30/2024 CBC W Auto Diffe renti al panel - Blood eosinophils [#/volume] in blood 0.19 text: 0.04 - 0.54 x10'3/ uL ABS. EOSIN OPHIL S 0.19 0.04 - 0.54 x10'3 /uL 09/30 3:10 AM [facility] Not Available Not Available 12/08/2024 10:28:58 09/30/20 24 09/30/2024 CBC W Auto Diffe renti al panel - Blood erythrocytes [morphology] in blood by automated count RBC MORPHO LOGY APPEAR S NORMAL . SLIDE REVIEW ED. RBC MORPH OLOGY RBC MORPH OLOGY APPEA RS MILTON L. SLIDE REVIE WED. 09/30 3:10 AM [facility] Not Available Not Available 12/08/2024 10:28:58 09/30/20 24 09/30/2024 CBC W Auto Diffe renti al panel - Blood platelets [#/volume] in blood by automated count ADEQUA TE PLT EST. ADEQU ATE 09/30 3:10 AM [facility] Not Available Not Available 12/08/2024 10:28:58 09/30/20 24 09/30/2024 CBC W Auto Diffe renti al panel - Blood interpretati on and review of laboratory results ABNORM AL Not Available Not Available 10:28:58 09/30/20 24 09/30/2024 Influ rubén virus A+B Ag [Pres ence] in Speci men specimen source identified SWAB SPECI MEN TYPE SWAB 09/30 2:12 AM [employer] [facility] Not Available Not Available 12/08/2024 10:28:58 09/30/20 24 09/30/2024 Influ rubén virus A+B Ag [Pres ence] in Speci men influenza virus A Ag [presence] in specimen NEGATI VE text: negati ve INFLU RUBÉN A NEGAT GABY NEGAT GABY 09/30 2:41 AM [employer] [facility] Not Available Not Available 12/08/2024 10:28:58 09/30/20 24 09/30/2024 Influ rubén virus A+B Ag [Pres ence] in Speci men haemophilus influenzae B Ag [presence] in specimen NEGATI VE text: negati ve INFLU RUBÉN B NEGAT GABY NEGAT GABY 09/30 2:41 AM [employer] [facility] Not Available Not Available 12/08/2024 10:28:58 10/01/20 24 10/01/2024 Gluco se [Mass /volu me] in Blood by Autom ated test strip glucose [mass/volume ] in blood by automated test strip 74 mg/dL low: 70mg/d Lhigh: 99mg/d L GLUCO SE POC 74 70 - 99 mg/dL 10/01 5:38 PM [employer] [facility] Not Available Not Available 12/08/2024 10:29:01 10/01/20 24 10/01/2024 Gluco se [Mass /volu me] in Blood by Autom ated test strip glucose [mass/volume ] in blood by automated test strip 160 mg/dL low: 70mg/d Lhigh: 99mg/d L high GLUCO SE POC 160 (H) 70 - 99 mg/dL 10/01 4:25 PM [employer] [facility] Not Available Not Available 12/08/2024 [...] SPUTU M, INDUC ED 10/01 10:28 AM [employer] [facility] Not Available Not Available 12/08/2024 10:29:01 10/01/20 24 10/03/2024 Bacte lala ident ified in Speci men by Respi rator y cultu re service comment NO SPECIA L REQUES T SPECI AL REQUE STS NO SPECI AL REQUE ST 10/01 10:28 AM [employer] [facility] Not Available Not Available 12/08/2024 10:29:01 10/01/20 24 10/03/2024 Bacte llaa ident ified in Speci men by Respi rator y cultu re microscopic observation [identifier] in specimen by gram stain FEW WHITE BLOOD CELLS SEEN GRAM STAIN RESUL T FEW WHITE BLOOD CELLS SEEN 10/02 11:50 AM [employer] [facility] Not Available Not Available 12/08/2024 10:29:01 10/01/20 24 10/03/2024 Bacte lala ident ified in Speci men by Respi rator y cultu re microscopic observation [identifier] in specimen by gram stain FEW MIXED BACTER IAL LEYDA GRAM STAIN RESUL T FEW MIXED BACTE RIAL LEYDA 10/02 11:50 AM [employer] [facility] Not Available Not Available 12/08/2024 10:29:01 10/01/20 24 10/03/2024 Bacte lala ident ified in Speci men by Respi rator y cultu re microscopic observation [identifier] in specimen by gram stain MANY YEAST GRAM STAIN RESUL T MANY YEAST 10/02 11:50 AM [employer] [facility] Not Available Not Available 12/08/2024 10:29:01 10/01/20 24 10/03/2024 Bacte lala ident ified in Speci men by Respi rator y cultu re microscopic observation [identifier] in specimen by gram stain MANY EPITHE LIAL CELLS GRAM STAIN RESUL T MANY EPITH ELIAL CELLS 10/02 11:50 AM [employer] [facility] Not Available Not Available 12/08/2024 [...] IS INDIC ATED. (A) 10/03 7:15 AM [employer] [facility] Not Available Not Available 12/08/2024 10:29:01 10/01/20 24 10/03/2024 Bacte lala ident ified in Speci men by Respi rator y cultu re bacteria identified in specimen by culture ABSENC E OF NORMAL LEYDA. CULTU RE RESUL T ABSEN CE OF MILTON L LEYDA . 10/03 7:15 AM [employer] [facility] Not Available Not Available [...] 70 - 99 mg/dL 10/01 6:13 AM [employer] [facility] Not Available Not Available 12/08/2024 10:29:01 10/01/20 24 10/01/2024 Gluco se [Mass /volu me] in Blood by Autom ated test strip interpretati on and review of laboratory results ABNORM AL Not Available Not Available 10:29:01 10/01/20 24 10/01/2024 Basic metab olic 2000 panel - Serum or Plasm a glucose [mass/volume ] in serum or plasma 208 text: 70 - 99 mg/dL high GLUCO SE 208 (H) 70 - 99 MG/DL 10/01 5:41 AM [facility] Not Available Not Available 12/08/2024 10:29:01 10/01/20 24 10/01/2024 Basic metab olic 1999 panel - Serum or Plasm a urea nitrogen [mass/volume ] in serum or plasma 26 text: 7 - 18 mg/dL high BUN 26 (H) 7 - 18 MG/DL 10/01 5:41 AM [facility] Not Available Not Available 12/08/2024 10:29:01 10/01/20 24 10/01/2024 Basic metab olic 1999 panel - Serum or Plasm a creatinine [mass/volume ] in serum or plasma 1.07 text: 0.7 - 1.3 mg/dL CREAT ININE S/P/B 1.07 0.7 - 1.3 MG/DL 10/01 5:41 AM [facility] Not Available Not Available 12/08/2024 10:29:01 10/01/20 24 10/01/2024 Basic metab olic 1999 panel - Serum or Plasm a sodium [moles/volum e] in serum or plasma 138 text: 136 - 145 mmol/L SODIU M S/P/B 138 136 - 145 MMOL/ L 10/01 5:41 AM [facility] Not Available Not Available 12/08/2024 10:29:01 10/01/20 24 10/01/2024 Basic metab olic 1999 panel - Serum or Plasm a potassium [moles/volum e] in serum or plasma 4.3 text: 3.5 - 5.1 mmol/L POTAS SIUM S/P/B 4.3 3.5 - 5.1 MMOL/ L 10/01 5:41 AM [facility] Not Available Not Available 12/08/2024 10:29:01 10/01/20 24 10/01/2024 Basic metab olic 2000 panel - Serum or Plasm a chloride [moles/volum e] in serum or plasma 107 text: 97 - 115 mmol/L CHLOR KATERIN S/P/B 107 97 - 115 MMOL/ L 10/01 5:41 AM [facility] Not Available Not Available 12/08/2024 10:29:01 10/01/20 24 10/01/2024 Basic metab olic 1999 panel - Serum or Plasm a carbon dioxide, total [moles/volum e] in serum or plasma 28.4 text: 21 - 32 mmol/L CO2 28.4 21 - 32 MMOL/ L 10/01 5:41 AM [facility] Not Available Not Available 12/08/2024 10:29:01 10/01/20 24 10/01/2024 Basic metab olic 1999 panel - Serum or Plasm a calcium [mass/volume ] in serum or plasma 8.5 text: 8.5 - 10.1 mg/dL CALCI UM S/P/B 8.5 8.5 - 10.1 MG/DL 10/01 5:41 AM [facility] Not Available Not Available 12/08/2024 10:29:01 10/01/20 24 10/01/2024 Basic metab olic 1999 panel - Serum or Plasm a anion gap in serum or plasma 2.6 text: 2 - 10 mmol/L ANION GAP 2.6 2 - 10 MMOL/ L 10/01 5:41 AM [facility] Not Available Not Available 12/08/2024 10:29:01 10/01/20 24 10/01/2024 Basic metab olic 1999 panel - Serum or Plasm a urea nitrogen/cre atinine [mass ratio] in serum or plasma 24.3 low: 6high: 26 BUN CREAT ININE RATIO 24.3 6 - 26 10/01 5:41 AM [facility] Not Available Not Available 12/08/2024 10:29:01 10/01/20 24 10/01/2024 Basic metab olic 2000 panel - Serum or Plasm a glomerular filtration rate/1.73 sq M.predicted [volume rate/area] in serum, plasma or blood by creatinine-b ased formula (CKD-epi 2020) 80 text: >90 mL/min /1.73 M2 low GFR ESTIM ATE 80 (L) >90 ML/ND N/1.7 3 M2 10/01 5:41 AM [facility] Not Available Not Available 12/08/2024 10:29:10/01/2010/01/2024 Basic metab olic 2000 panel - Serum or Plasm a interpretati on and review of laboratory results ABNORM AL Not Available Not Available 10:29:10/01/2010/01/2024 CBC W Auto Diffe renti al panel - Blood leukocytes [#/volume] in blood by automated count 18.95 text: 4.5 - 11.0 x10'3/ uL high WBC 18.95 (H) 4.5 - 11.0 x10'3 /uL 10/01 5:41 AM [employer] [facility] Not Available Not Available 12/08/2024 10:29:10/01/20 24 10/01/2024 CBC W Auto Diffe renti al panel - Blood erythrocytes [#/volume] in blood by automated count 4.55 text: 4.70 - 6.10 x10'6/ uL low RBC 4.55 (L) 4.70 - 6.10 x10'6 /uL 10/01 5:41 AM [employer] [facility] Not Available Not Available 12/08/2024 10:29:10/01/20 24 10/01/2024 CBC W Auto Diffe renti al panel - Blood hemoglobin [mass/volume ] in blood 13.6 text: 14.0 - 18.0 g/dL low HGB 13.6 (L) 14.0 - 18.0 G/DL 10/01 5:41 AM [facility] Not Available Not Available 12/08/2024 10:29:10/01/20 24 10/01/2024 CBC W Auto Diffe renti al panel - Blood hematocrit [volume fraction] of blood 41.3 % low: 43%hig h: 54% low HCT 41.3 (L) 43.0 - 54.0 % 10/01 5:41 AM [facility] Not Available Not Available 12/08/2024 10:29:01 10/01/20 24 10/01/2024 CBC W Auto Diffe renti al panel - Blood MCV [entitic volume] 90.8 text: 80.0 - 94.0 fL MCV 90.8 80.0 - 94.0 FL 10/01 5:41 AM [employer] [facility] Not Available Not Available 12/08/2024 10:29:01 10/01/20 24 10/01/2024 CBC W Auto Diffe renti al panel - Blood MCH [entitic mass] 29.9 pg low: 27pghi gh: 31pg MCH 29.9 27.0 - 31.0 PG 10/01 5:41 AM [employer] [facility] Not Available Not Available 12/08/2024 10:29:01 10/01/20 24 10/01/2024 CBC W Auto Diffe renti al panel - Blood MCHC [mass/volume ] 32.9 text: 32.0 - 36.0 g/dL MCHC 32.9 32.0 - 36.0 G/DL 10/01 5:41 AM [facility] Not Available Not Available 12/08/2024 10:29:01 10/01/20 24 10/01/2024 CBC W Auto Diffe renti al panel - Blood erythrocyte distribution width [entitic volume] by automated count 12.7 % low: 11.5%h igh: 14.5% RDW 12.7 11.5 - 14.5 % 10/01 5:41 AM [facility] Not Available Not Available 12/08/2024 10:29:01 10/01/20 24 10/01/2024 CBC W Auto Diffe renti al panel - Blood platelets [#/volume] in blood 271 text: 130 - 400 x10'3/ uL PLT 271 130 - 400 x10'3 /uL 10/01 5:41 AM [facility] Not Available Not Available 12/08/2024 10:29:01 10/01/20 24 10/01/2024 CBC W Auto Diffe renti al panel - Blood platelet mean volume [entitic volume] in blood 9.6 text: 9.3 - 12.2 fL MPV 9.6 9.3 - 12.2 FL 10/01 5:41 AM [facility] Not Available Not Available 12/08/2024 10:29:01 10/01/20 24 10/01/2024 CBC W Auto Diffe renti al panel - Blood differential cell count method - blood MANUAL DIFFER ENTIAL DIFFGeorge PATEL AL TYPE MANUA L LISAE JORGE FLOOD 10/01 5:42 AM [facility] Not Available Not Available 12/08/2024 10:29:01 10/01/20 24 10/01/2024 CBC W Auto Diffe renti al panel - Blood segmented neutrophils/ 100 leukocytes in blood by manual count 85 % SEG NEUTR OPHIL S 85 % 10/01 5:42 AM [facility] Not Available Not Available 12/08/2024 10:29:01 10/01/20 24 10/01/2024 CBC W Auto Diffe renti al panel - Blood lymphocytes/ 100 leukocytes in blood by manual count 10 % LYMPH OCYTE S 10 % 10/01 5:42 AM [facility] Not Available Not Available 12/08/2024 10:29:01 10/01/20 24 10/01/2024 CBC W Auto Diffe renti al panel - Blood variant lymphocytes/ 100 leukocytes in blood by manual count 1 % ATYP. LYMPH S 1 % 10/01 5:42 AM [facility] Not Available Not Available 12/08/2024 10:29:01 10/01/20 24 10/01/2024 CBC W Auto Diffe renti al panel - Blood monocytes/10 0 leukocytes in blood by manual count 3 % MONOC YTES 3 % 10/01 5:42 AM [facility] Not Available Not Available 12/08/2024 10:29:01 10/01/20 24 10/01/2024 CBC W Auto Diffe renti al panel - Blood band form neutrophils/ 100 leukocytes in blood by manual count 1 % BANDS 1 % 10/01 5:42 AM [employer] [facility] Not Available Not Available 12/08/2024 10:29:01 10/01/20 24 10/01/2024 CBC W Auto Diffe renti al panel - Blood neutrophils [#/volume] in blood 16.3 text: 1.80 - 7.70 x10'3/ uL high ABS. NEUTR OPHIL S 16.30 (H) 1.80 - 7.70 x10'3 /uL 10/01 5:42 AM [employer] [facility] Not Available Not Available 12/08/2024 10:29:01 10/01/20 24 10/01/2024 CBC W Auto Diffe renti al panel - Blood lymphocytes [#/volume] in blood 2.08 text: 1.00 - 4.80 x10'3/ uL ABS. LYMPH OCYTE S 2.08 1.00 - 4.80 x10'3 /uL 10/01 5:42 AM [facility] Not Available Not Available 12/08/2024 10:29:01 10/01/20 24 10/01/2024 CBC W Auto Diffe renti al panel - Blood monocytes [#/volume] in blood 0.57 text: 0.30 - 0.82 x10'3/ uL ABS. MONOC YTES 0.57 0.30 - 0.82 x10'3 /uL 10/01 5:42 AM [facility] Not Available Not Available 12/08/2024 10:29:01 12/12/20 24 10/01/2024 CBC W Auto Diffe renti al panel - Blood erythrocytes [morphology] in blood by automated count RBC MORPHO LOGY APPEAR S NORMAL . SLIDE REVIEW ED. RBC MORPH OLOGY RBC MORPH OLOGY APPEA RS MILTON L. SLIDE REVIE WED. 10/01 5:42 AM [facility] Not Available Not Available 12/08/2024 10:29:01 10/01/20 24 10/01/2024 CBC W Auto Diffe renti al panel - Blood platelets [#/volume] in blood by automated count ADEQUA TE PLT EST. ADEQU ATE 10/01 5:42 AM [facility] Not Available Not Available 12/08/2024 10:29:01 [...] 70 - 99 mg/dL 10/01 12:29 AM [facility] Not Available Not Available 12/08/2024 10:29:00 [...] 70 - 99 mg/dL 10/02 8:44 PM [employer] [facility] Not Available Not Available 12/08/2024 [...] 70 - 99 mg/dL 10/02 5:42 PM [facility] Not Available Not Available 12/08/2024 10:29:02 [...] 70 - 99 mg/dL 10/02 12:20 PM [facility] Not Available Not Available 12/08/2024 10:29:02 10/02/20 24 10/02/2024 Gluco se [Mass /volu me] in Blood by Autom ated test strip interpretati on and review of laboratory results ABNORM AL Not Available Not Available 10:29:02 10/02/20 24 10/02/2024 Zeenat barrios compl ete panel - Urine collection method - specimen URINE CHAVARRIA CATH SPECI MEN TYPE URINE CHAVARRIA CATH 10/02 7:26 AM [facility] Not Available Not Available 12/08/2024 10:29:02 10/02/20 24 10/02/2024 Urina lysis compl ete panel - Urine color of urine LIGHT ORANGE COLOR (U) LIGHT ORANG E 10/02 8:46 AM [facility] Not Available Not Available 12/08/2024 10:29:02 10/02/20 24 10/02/2024 Urina lysis compl ete panel - Urine clarity of urine TURBID TRANS PAREN CY TURBI D 10/02 8:46 AM [facility] Not Available Not Available 12/08/2024 10:29:02 10/02/20 24 10/02/2024 Urina lysis compl ete panel - Urine specific gravity of urine 1.013 low: 1.001h igh: 1.03 SPECI FIC GRAVI TY (U) 1.013 1.001 - 1.030 10/02 8:46 AM [facility] Not Available Not Available 12/08/2024 10:29:02 10/02/20 24 10/02/2024 Urina lysis compl ete panel - Urine pH of urine 7 low: 5high: 9 U PH 7.0 5.0 - 9.0 10/02 8:46 AM [facility] Not Available Not Available 12/08/2024 10:29:02 10/02/20 24 10/02/2024 Urina lysis compl ete panel - Urine leukocytes [#/volume] in urine by test strip NEGATI VE text: negati ve LEUKO CYTES (U) NEGAT GABY NEGAT GABY 10/02 8:46 AM [facility] Not Available Not Available 12/08/2024 10:29:02 10/02/20 24 10/02/2024 Urina lysis compl ete panel - Urine nitrite [presence] in urine NEGATI VE text: negati ve NITRI TINA NEGAT GABY NEGAT GABY 10/02 8:46 AM [facility] Not Available Not Available 12/08/2024 10:29:02 10/02/20 24 10/02/2024 Urina lysis compl ete panel - Urine protein [mass/volume ] in urine by test strip 10 text: <30 mg/dL PROTE IN RANDO M (U) 10 <30 MG/DL 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 [facility] Not Available Not Available 12/08/2024 10:29:02 10/02/20 24 10/02/2024 Urina lysis compl ete panel - Urine glucose [mass/volume ] in urine NORMAL text: normal mg/dL GLUCO SE (U) MILTON L MILTON L MG/DL 10/02 8:46 AM [facility] Not Available Not Available 12/08/2024 10:29:02 10/02/20 24 10/02/2024 Urina lysis compl ete panel - Urine ketones [mass/volume ] in urine by test strip 10 text: negati ve mg/dL abnormal KETON ES MG/DL (U) 10 (A) NEGAT GABY MG/DL 10/02 8:46 AM [facility] Not Available Not Available 12/08/2024 10:29:02 10/02/20 24 10/02/2024 Urina lysis compl ete panel - Urine urobilinogen [units/volum e] in urine by test strip 2 text: normal mg/dL abnormal UROBI LINOG EN 2.0 (A) MILTON L MG/DL 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[employer] [facility] Not Available Not Available 12/08/2024 10:29:02 10/02/20 24 10/02/2024 Urina lysis compl ete panel - Urine bilirubin.to doni [mass/volume ] in urine NEGATI VE text: negati ve mg/dL BILIR UBIN (U) NEGAT GABY NEGAT GABY MG/DL 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[employer] [facility] Not Available Not Available 12/08/2024 10:29:02 10/02/20 24 10/02/2024 Urina lysis compl ete panel - Urine erythrocytes [#/volume] in urine by automated test strip 3+ text: negati ve abnormal BLOOD (U) 3+ (A) NEGAT GABY 10/02 8:46 AM [facility] Not Available Not Available 12/08/2024 10:29:02 10/02/20 24 10/02/2024 Urina lysis compl ete panel - Urine leukocytes [#/area] in urine sediment by microscopy high power field 3 text: <6 /hpf WBC/H PF 3 <6 /HPF 10/02 8:46 AM [facility] Not Available Not Available 12/08/2024 10:29:02 10/02/20 24 10/02/2024 Urina lysis compl ete panel - Urine erythrocytes [#/area] in urine sediment by microscopy high power field >100 text: <6 /hpf high RBC/H PF >100 (H) <6 /HPF 10/02 8:46 AM [facility] Not Available Not Available 12/08/2024 10:29:02 10/02/20 24 10/02/2024 Urina lysis compl ete panel - Urine interpretati on and review of laboratory results ABNORM AL Not Available Not Available 10:29:02 10/02/20 24 10/02/2024 Basic metab olic 1999 panel - Serum or Plasm a glucose [mass/volume ] in serum or plasma 147 text: 70 - 99 mg/dL high GLUCO SE 147 (H) 70 - 99 MG/DL 10/02 6:22 AM [facility] Not Available Not Available 12/08/2024 10:29:01 10/02/20 24 10/02/2024 Basic metab olic 2000 panel - Serum or Plasm a urea nitrogen [mass/volume ] in serum or plasma 21 text: 7 - 18 mg/dL high BUN 21 (H) 7 - 18 MG/DL 10/02 6:22 AM [facility] Not Available Not Available 12/08/2024 10:29:01 10/02/20 24 10/02/2024 Basic metab olic 1999 panel - Serum or Plasm a creatinine [mass/volume ] in serum or plasma 0.79 text: 0.7 - 1.3 mg/dL CREAT ININE S/P/B 0.79 0.7 - 1.3 MG/DL 10/02 6:22 AM [facility] Not Available Not Available 12/08/2024 10:29:01 10/02/20 24 10/02/2024 Basic metab olic 1999 panel - Serum or Plasm a sodium [moles/volum e] in serum or plasma 136 text: 136 - 145 mmol/L SODIU M S/P/B 136 136 - 145 MMOL/ L 10/02 6:22 AM [facility] Not Available Not Available 12/08/2024 10:29:01 10/02/20 24 10/02/2024 Basic metab olic 1999 panel - Serum or Plasm a potassium [moles/volum e] in serum or plasma 3.8 text: 3.5 - 5.1 mmol/L POTAS SIUM S/P/B 3.8 3.5 - 5.1 MMOL/ L 10/02 6:22 AM [facility] Not Available Not Available 12/08/2024 10:29:01 10/02/20 24 10/02/2024 Basic metab olic 1999 panel - Serum or Plasm a chloride [moles/volum e] in serum or plasma 104 text: 97 - 115 mmol/L CHLOR KATERIN S/P/B 104 97 - 115 MMOL/ L 10/02 6:22 AM [facility] Not Available Not Available 12/08/2024 10:29:01 10/02/20 24 10/02/2024 Basic metab olic 2000 panel - Serum or Plasm a carbon dioxide, total [moles/volum e] in serum or plasma 26.4 text: 21 - 32 mmol/L CO2 26.4 21 - 32 MMOL/ L 10/02 6:22 AM [facility] Not Available Not Available 12/08/2024 10:29:01 10/02/20 24 10/02/2024 Basic metab olic 2000 panel - Serum or Plasm a calcium [mass/volume ] in serum or plasma 8.5 text: 8.5 - 10.1 mg/dL CALCI UM S/P/B 8.5 8.5 - 10.1 MG/DL 10/02 6:22 AM [facility] Not Available Not Available 12/08/2024 10:29:01 10/02/20 24 10/02/2024 Basic metab olic 2000 panel - Serum or Plasm a anion gap in serum or plasma 5.6 text: 2 - 10 mmol/L ANION GAP 5.6 2 - 10 MMOL/ L 10/02 6:22 AM [facility] Not Available Not Available 12/08/2024 10:29:01 10/02/20 24 10/02/2024 Basic metab olic 2000 panel - Serum or Plasm a urea nitrogen/cre atinine [mass ratio] in serum or plasma 26.6 low: 6high: 26 high BUN CREAT ININE RATIO 26.6 (H) 6 - 26 10/02 6:22 AM [facility] Not Available Not Available 12/08/2024 10:29:01 10/02/20 24 10/02/2024 Basic metab olic 2000 panel - Serum or Plasm a glomerular filtration rate/1.73 sq M.predicted [volume rate/area] in serum, plasma or blood by creatinine-b ased formula (CKD-epi 2020) text: >90 mL/min /1.73 M2 GFR ESTIM ATE >90 >90 ML/ND N/1.7 3 M2 10/02 6:22 AM [facility] Not Available Not Available 12/08/2024 10:29:01 [...] - 11.0 x10'3 /uL 10/02 6:06 AM [facility] Not Available Not Available 12/08/2024 10:29:01 10/02/20 24 10/02/2024 CBC W Auto Diffe renti al panel - Blood erythrocytes [#/volume] in blood by automated count 4.87 text: 4.70 - 6.10 x10'6/ uL RBC 4.87 4.70 - 6.10 x10'6 /uL 10/02 6:06 AM [facility] Not Available Not Available 12/08/2024 10:29:01 10/02/20 24 10/02/2024 CBC W Auto Diffe renti al panel - Blood hemoglobin [mass/volume ] in blood 14.5 text: 14.0 - 18.0 g/dL HGB 14.5 14.0 - 18.0 G/DL 10/02 6:06 AM [facility] Not Available Not Available 12/08/2024 10:29:01 10/02/20 24 10/02/2024 CBC W Auto Diffe renti al panel - Blood hematocrit [volume fraction] of blood 43.3 % low: 43%hig h: 54% HCT 43.3 43.0 - 54.0 % 10/02 6:06 AM [facility] Not Available Not Available 12/08/2024 10:29:01 10/02/20 24 10/02/2024 CBC W Auto Diffe renti al panel - Blood MCV [entitic volume] 88.9 text: 80.0 - 94.0 fL MCV 88.9 80.0 - 94.0 FL 10/02 6:06 AM [facility] Not Available Not Available 12/08/2024 10:29:01 10/02/20 24 10/02/2024 CBC W Auto Diffe renti al panel - Blood MCH [entitic mass] 29.8 pg low: 27pghi gh: 31pg MCH 29.8 27.0 - 31.0 PG 10/02 6:06 AM [facility] Not Available Not Available 12/08/2024 10:29:01 10/02/20 24 10/02/2024 CBC W Auto Diffe renti al panel - Blood MCHC [mass/volume ] 33.5 text: 32.0 - 36.0 g/dL MCHC 33.5 32.0 - 36.0 G/DL 10/02 6:06 AM [facility] Not Available Not Available 12/08/2024 10:29:01 10/02/20 24 10/02/2024 CBC W Auto Diffe renti al panel - Blood erythrocyte distribution width [entitic volume] by automated count 12.5 % low: 11.5%h igh: 14.5% RDW 12.5 11.5 - 14.5 % 10/02 6:06 AM [facility] Not Available Not Available 12/08/2024 10:29:01 10/02/20 24 10/02/2024 CBC W Auto Diffe renti al panel - Blood platelets [#/volume] in blood 210 text: 130 - 400 x10'3/ uL PLT 210 130 - 400 x10'3 /uL 10/02 6:06 AM [facility] Not Available Not Available 12/08/2024 10:29:01 10/02/20 24 10/02/2024 CBC W Auto Diffe renti al panel - Blood platelet mean volume [entitic volume] in blood 9.6 text: 9.3 - 12.2 fL MPV 9.6 9.3 - 12.2 FL 10/02 6:06 AM [facility] Not Available Not Available 12/08/2024 10:29:01 10/02/20 24 10/02/2024 CBC W Auto Diffe renti al panel - Blood differential cell count method - blood AUTOMA TOSHIA DIFFER ENTIAL DIFFE RENTI AL TYPE AUTOM ATED DIFFE RENTI AL 10/02 6:06 AM [facility] Not Available Not Available 12/08/2024 10:29:01 10/02/20 24 10/02/2024 CBC W Auto Diffe renti al panel - Blood neutrophils/ 100 leukocytes in blood by automated count 77.9 % NEUTR OPHIL S % 77.9 % 10/02 6:06 AM [facility] Not Available Not Available 12/08/2024 10:29:01 10/02/20 24 10/02/2024 CBC W Auto Diffe renti al panel - Blood lymphocytes/ 100 leukocytes in blood by automated count 15.1 % LYMPH OCYTE S % 15.1 % 10/02 6:06 AM [facility] Not Available Not Available 12/08/2024 10:29:01 10/02/20 24 10/02/2024 CBC W Auto Diffe renti al panel - Blood monocytes/10 0 leukocytes in blood by automated count 6 % MONOC YTES % 6.0 % 10/02 6:06 AM [facility] Not Available Not Available 12/08/2024 10:29:01 10/02/20 24 10/02/2024 CBC W Auto Diffe renti al panel - Blood eosinophils/ 100 leukocytes in blood by automated count 0.4 % EOSIN OPHIL S 0.4 % 10/02 6:06 AM [facility] Not Available Not Available 12/08/2024 10:29:01 10/02/20 24 10/02/2024 CBC W Auto Diffe renti al panel - Blood basophils/10 0 leukocytes in blood by automated count 0.2 % BASOP HILS 0.2 % 10/02 6:06 AM [facility] Not Available Not Available 12/08/2024 10:29:01 10/02/20 24 10/02/2024 CBC W Auto Diffe renti al panel - Blood immature granulocytes /100 leukocytes in blood by automated count 0.4 % IMMAT URE GRANS % 0.4 % 10/02 6:06 AM [facility] Not Available Not Available 12/08/2024 10:29:01 10/02/20 24 10/02/2024 CBC W Auto Diffe renti al panel - Blood neutrophils [#/volume] in blood 10.37 text: 1.80 - 7.70 x10'3/ uL high ABS. NEUTR OPHIL S 10.37 (H) 1.80 - 7.70 x10'3 /uL 10/02 6:06 AM [facility] Not Available Not Available 12/08/2024 10:29:01 10/02/20 24 10/02/2024 CBC W Auto Diffe renti al panel - Blood lymphocytes [#/volume] in blood 2.01 text: 1.00 - 4.80 x10'3/ uL ABS. LYMPH OCYTE S 2.01 1.00 - 4.80 x10'3 /uL 10/02 6:06 AM [facility] Not Available Not Available 12/08/2024 10:29:01 10/02/20 24 10/02/2024 CBC W Auto Diffe renti al panel - Blood monocytes [#/volume] in blood 0.8 text: 0.30 - 0.82 x10'3/ uL ABS. MONOC YTES 0.80 0.30 - 0.82 x10'3 /uL 10/02 6:06 AM [facility] Not Available Not Available 12/08/2024 10:29:01 10/02/20 24 10/02/2024 CBC W Auto Diffe renti al panel - Blood eosinophils [#/volume] in blood 0.05 text: 0.04 - 0.54 x10'3/ uL ABS. EOSIN OPHIL S 0.05 0.04 - 0.54 x10'3 /uL 10/02 6:06 AM [facility] Not Available Not Available 12/08/2024 10:29:01 10/02/20 24 10/02/2024 CBC W Auto Diffe renti al panel - Blood basophils [#/volume] in blood 0.02 text: 0.01 - 0.08 x10'3/ uL ABS. BASOP HILS 0.02 0.01 - 0.08 x10'3 /uL 10/02 6:06 AM [facility] Not Available Not Available 12/08/2024 10:29:01 10/02/20 24 10/02/2024 CBC W Auto Diffe renti al panel - Blood immature granulocytes [#/volume] in blood 0.05 text: 0.00 - 0.49 x10'3/ uL ABS. 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[employer] [facility] Not Available Not Available 12/08/2024 [...] 70 - 99 mg/dL 10/03 7:57 AM [facility] Not Available Not Available 12/08/2024 10:29:02 [...] - 11.0 x10'3 /uL 10/03 4:46 AM [facility] Not Available Not Available 12/08/2024 10:29:02 10/03/20 24 10/03/2024 CBC W Auto Diffe renti al panel - Blood erythrocytes [#/volume] in blood by automated count 4.95 text: 4.70 - 6.10 x10'6/ uL RBC 4.95 4.70 - 6.10 x10'6 /uL 10/03 4:46 AM [facility] Not Available Not Available 12/08/2024 10:29:02 10/03/20 24 10/03/2024 CBC W Auto Diffe renti al panel - Blood hemoglobin [mass/volume ] in blood 14.4 text: 14.0 - 18.0 g/dL HGB 14.4 14.0 - 18.0 G/DL 10/03 4:46 AM VICE [employer]IDENT [employer] [facility] Not Available Not Available 12/08/2024 10:29:02 10/03/20 24 10/03/2024 CBC W Auto Diffe renti al panel - Blood hematocrit [volume fraction] of blood 43 % low: 43%hig h: 54% HCT 43.0 43.0 - 54.0 % 10/03 4:46 AM [facility] Not Available Not Available 12/08/2024 10:29:02 10/03/20 24 10/03/2024 CBC W Auto Diffe renti al panel - Blood MCV [entitic volume] 86.9 text: 80.0 - 94.0 fL MCV 86.9 80.0 - 94.0 FL 10/03 4:46 AM [facility] Not Available Not Available 12/08/2024 10:29:02 10/03/20 24 10/03/2024 CBC W Auto Diffe renti al panel - Blood MCH [entitic mass] 29.1 pg low: 27pghi gh: 31pg MCH 29.1 27.0 - 31.0 PG 10/03 4:46 AM [facility] Not Available Not Available 12/08/2024 10:29:02 10/03/20 24 10/03/2024 CBC W Auto Diffe renti al panel - Blood MCHC [mass/volume ] 33.5 text: 32.0 - 36.0 g/dL MCHC 33.5 32.0 - 36.0 G/DL 10/03 4:46 AM [facility] Not Available Not Available 12/08/2024 10:29:02 10/03/20 24 10/03/2024 CBC W Auto Diffe renti al panel - Blood erythrocyte distribution width [entitic volume] by automated count 12.2 % low: 11.5%h igh: 14.5% RDW 12.2 11.5 - 14.5 % 10/03 4:46 AM [facility] Not Available Not Available 12/08/2024 10:29:02 10/03/20 24 10/03/2024 CBC W Auto Diffe renti al panel - Blood platelets [#/volume] in blood 203 text: 130 - 400 x10'3/ uL PLT 203 130 - 400 x10'3 /uL 10/03 4:46 AM [facility] Not Available Not Available 12/08/2024 10:29:02 10/03/20 24 10/03/2024 CBC W Auto Diffe renti al panel - Blood platelet mean volume [entitic volume] in blood 9.6 text: 9.3 - 12.2 fL MPV 9.6 9.3 - 12.2 FL 10/03 4:46 AM [facility] Not Available Not Available 12/08/2024 10:29:02 10/03/20 24 10/03/2024 CBC W Auto Diffe renti al panel - Blood differential cell count method - blood AUTOMA TOSHIA DIFFER ENTIAL DIFFE RENTI AL TYPE AUTOM ATED DIFFE RENTI AL 10/03 4:46 AM [facility] Not Available Not Available 12/08/2024 10:29:02 10/03/20 24 10/03/2024 CBC W Auto Diffe renti al panel - Blood neutrophils/ 100 leukocytes in blood by automated count 71.7 % NEUTR OPHIL S % 71.7 % 10/03 4:46 AM [facility] Not Available Not Available 12/08/2024 10:29:02 10/03/20 24 10/03/2024 CBC W Auto Diffe renti al panel - Blood lymphocytes/ 100 leukocytes in blood by automated count 19.2 % LYMPH OCYTE S % 19.2 % 10/03 4:46 AM [facility] Not Available Not Available 12/08/2024 10:29:02 10/03/20 24 10/03/2024 CBC W Auto Diffe renti al panel - Blood monocytes/10 0 leukocytes in blood by automated count 7.1 % MONOC YTES % 7.1 % 10/03 4:46 AM [facility] Not Available Not Available 12/08/2024 10:29:02 10/03/20 24 10/03/2024 CBC W Auto Diffe renti al panel - Blood eosinophils/ 100 leukocytes in blood by automated count 1.5 % EOSIN OPHIL S 1.5 % 10/03 4:46 AM [facility] Not Available Not Available 12/08/2024 10:29:02 10/03/20 24 10/03/2024 CBC W Auto Diffe renti al panel - Blood basophils/10 0 leukocytes in blood by automated count 0.2 % BASOP HILS 0.2 % 10/03 4:46 AM [facility] Not Available Not Available 12/08/2024 10:29:02 10/03/20 24 10/03/2024 CBC W Auto Diffe renti al panel - Blood immature granulocytes /100 leukocytes in blood by automated count 0.3 % IMMAT URE GRANS % 0.3 % 10/03 4:46 AM [facility] Not Available Not Available 12/08/2024 10:29:02 10/03/20 24 10/03/2024 CBC W Auto Diffe renti al panel - Blood neutrophils [#/volume] in blood 6.63 text: 1.80 - 7.70 x10'3/ uL ABS. NEUTR OPHIL S 6.63 1.80 - 7.70 x10'3 /uL 10/03 4:46 AM [employer]ICE [employer]IDENT [employer] [facility] Not Available Not Available 12/08/2024 10:29:02 10/03/20 24 10/03/2024 CBC W Auto Diffe renti al panel - Blood lymphocytes [#/volume] in blood 1.78 text: 1.00 - 4.80 x10'3/ uL ABS. LYMPH OCYTE S 1.78 1.00 - 4.80 x10'3 /uL 10/03 4:46 AM [employer]ICE [employer]IDENT [employer] [facility] Not Available Not Available 12/08/2024 10:29:02 10/03/20 24 10/03/2024 CBC W Auto Diffe renti al panel - Blood monocytes [#/volume] in blood 0.66 text: 0.30 - 0.82 x10'3/ uL ABS. MONOC YTES 0.66 0.30 - 0.82 x10'3 /uL 10/03 4:46 AM [employer]ICE [employer]IDENT [employer] [facility] Not Available Not Available 12/08/2024 10:29:02 10/03/20 24 10/03/2024 CBC W Auto Diffe renti al panel - Blood eosinophils [#/volume] in blood 0.14 text: 0.04 - 0.54 x10'3/ uL ABS. EOSIN OPHIL S 0.14 0.04 - 0.54 x10'3 /uL 10/03 4:46 AM [facility] Not Available Not Available 12/08/2024 10:29:02 10/03/20 24 10/03/2024 CBC W Auto Diffe renti al panel - Blood basophils [#/volume] in blood 0.02 text: 0.01 - 0.08 x10'3/ uL ABS. BASOP HILS 0.02 0.01 - 0.08 x10'3 /uL 10/03 4:46 AM [facility] Not Available Not Available 12/08/2024 10:29:02 10/03/20 24 10/03/2024 CBC W Auto Diffe renti al panel - Blood immature granulocytes [#/volume] in blood 0.03 text: 0.00 - 0.49 x10'3/ uL ABS. IMMAT URE GRANU LOCYT ES 0.03 0.00 - 0.49 x10'3 /uL 10/03 4:46 AM [facility] Not Available Not Available 12/08/2024 10:29:02 10/03/20 24 10/03/2024 Basic metab olic 2000 panel - Serum or Plasm a glucose [mass/volume ] in serum or plasma 160 text: 70 - 99 mg/dL high GLUCO SE 160 (H) 70 - 99 MG/DL 10/03 5:13 AM [facility] Not Available Not Available 12/08/2024 10:29:02 10/03/20 24 10/03/2024 Basic metab olic 2000 panel - Serum or Plasm a urea nitrogen [mass/volume ] in serum or plasma 18 text: 7 - 18 mg/dL BUN 18 7 - 18 MG/DL 10/03 5:13 AM [facility] Not Available Not Available 12/08/2024 10:29:02 10/03/20 24 10/03/2024 Basic metab olic 2000 panel - Serum or Plasm a creatinine [mass/volume ] in serum or plasma 0.74 text: 0.7 - 1.3 mg/dL CREAT ININE S/P/B 0.74 0.7 - 1.3 MG/DL 10/03 5:13 AM [facility] Not Available Not Available 12/08/2024 10:29:02 10/03/20 24 10/03/2024 Basic metab olic 2000 panel - Serum or Plasm a sodium [moles/volum e] in serum or plasma 135 text: 136 - 145 mmol/L low SODIU M S/P/B 135 (L) 136 - 145 MMOL/ L 10/03 5:13 AM [facility] Not Available Not Available 12/08/2024 10:29:02 10/03/20 24 10/03/2024 Basic metab olic 2000 panel - Serum or Plasm a potassium [moles/volum e] in serum or plasma 3.9 text: 3.5 - 5.1 mmol/L POTAS SIUM S/P/B 3.9 3.5 - 5.1 MMOL/ L 10/03 5:13 AM [facility] Not Available Not Available 12/08/2024 10:29:02 10/03/20 24 10/03/2024 Basic metab olic 2000 panel - Serum or Plasm a chloride [moles/volum e] in serum or plasma 107 text: 97 - 115 mmol/L CHLOR KATERIN S/P/B 107 97 - 115 MMOL/ L 10/03 5:13 AM [facility] Not Available Not Available 12/08/2024 10:29:02 10/03/20 24 10/03/2024 Basic metab olic 2000 panel - Serum or Plasm a carbon dioxide, total [moles/volum e] in serum or plasma 25.6 text: 21 - 32 mmol/L CO2 25.6 21 - 32 MMOL/ L 10/03 5:13 AM [facility] Not Available Not Available 12/08/2024 10:29:02 10/03/20 24 10/03/2024 Basic metab olic 2000 panel - Serum or Plasm a calcium [mass/volume ] in serum or plasma 8.5 text: 8.5 - 10.1 mg/dL CALCI UM S/P/B 8.5 8.5 - 10.1 MG/DL 10/03 5:13 AM [facility] Not Available Not Available 12/08/2024 10:29:02 10/03/20 24 10/03/2024 Basic metab olic 2000 panel - Serum or Plasm a anion gap in serum or plasma 2.4 text: 2 - 10 mmol/L ANION GAP 2.4 2 - 10 MMOL/ L 10/03 5:13 AM [facility] Not Available Not Available 12/08/2024 10:29:02 10/03/20 24 10/03/2024 Basic metab olic 2000 panel - Serum or Plasm a urea nitrogen/cre atinine [mass ratio] in serum or plasma 24.3 low: 6high: 26 BUN CREAT ININE RATIO 24.3 6 - 26 10/03 5:13 AM [facility] Not Available Not Available 12/08/2024 10:29:02 10/03/20 24 10/03/2024 Basic metab olic 2000 panel - Serum or Plasm a glomerular filtration rate/1.73 sq M.predicted [volume rate/area] in serum, plasma or blood by creatinine-b ased formula (CKD-epi 2020) text: >90 mL/min /1.73 M2 GFR ESTIM ATE >90 >90 ML/ND N/1.7 3 M2 10/03 5:13 AM [facility] Not Available Not Available 12/08/2024 10:29:02 10/03/20 24 10/03/2024 Basic metab olic 2000 panel - Serum or Plasm a interpretati on and review of laboratory results ABNORM AL Not Available Not Available 10:29:02 11/02/19 25 11/02/2024 HbA1c (hemo globi n A1c), blood HbA1c 10.1 Not Available In-Office Order Internal Use Only DO Not Attach Compendium DO Not Attach Compendium, Do Not Delete/merge, [id number] 11/02/2024 15:46:52 12/22/19 25 12/22/2024 VITAM IN B12 AND FOLAT E vitamin B12 266 pg/mL 232-12 45 Not Available [facility] ([facility]) [address], [place], [address], 12/22/2024 10:15:31 12/22/19 25 12/22/2024 VITAM IN B12 AND FOLAT E folate (folic acid), serum 3.2 NG/mL >3.0 A serum folat e lexie ntrat ion of less than 3.1 ng/mL is consi dered to repre sent clini wilmer defic iency . Not Available [facility] ([facility]) [address], [place], [address], 12/22/2024 10:15:31 12/22/19 25 12/22/2024 VITAM IN [...] IOM (Inst itute of Medic ine). 2009. Travis ry refer ence intrick es for calci um and D. Karma medina [place]: The [facility] . 2. Wilfredo spann MF, Tracy ey [place], [employer]ika [employer] i [employer], et al. Evalu ation , treat ment, and preve ntion of vitam in D defic iency : an Endoc rine Socie ty clini wilmer pract ice guide line. JCEM. 2010; 96(7) :1911 -30. Not Available [facility] ([facility]) [address], [place], [address], 12/22/2024 10:15:32 Result Notes None recorded. Problems Name Problem SNOMED Code Status Onset Date Resolution Date Notes Provider Name and Address Organization Details Recorded Time Anxiety disorder 697307294 Active 2022 DAYSI DEMARCO MD Attn: Accounting, [address] [facility] [facility], [place], [address], [facility] 09:09:56 Myocardi al infarcti on 91312549 Active 2023 DAYSI DEMARCO MD Attn: Accounting, [address] [facility], [place], [address], [place] [facility] 5 19:47:03 Right inguinal hernia 500833008 Active 2022 DAYSI DEMARCO MD Attn: Accounting, [address] [facility], [place], [address], [place] [facility] 5 19:47:03 Small bowel obstruct ion 798902138 Completed 202212/21/2024 Removal Reason: resolved DAYSI DEMARCO MD Attn: Accounting, [address] [facility], [place], [address], [place] [facility] 5 09:10:10 Major depressi ve disorder 891840382 Active 2022 DAYSI DEMARCO MD Attn: Accounting, [address] [facility], [place], [address], [place] [facility] 5 09:09:53 Dyslipid emia 606294306 Active 2019 DAYSI DEMARCO MD Attn: Accounting, [address] [facility], [place], [address], [place] [facility] 5 09:09:[address] segment elevatio n myocardi al infarcti on 881616802 Active 2019 DAYSI DEMARCO MD Attn: Accounting, [address] [facility], [place], [address], [place] [facility] 5 19:47:03 Cataract due to diabetes mellitus type 2 215492668 Active 2022 DAYSI DEMARCO MD Attn: Accounting, [address] [facility], [place], [address], [place] [facility] 5 19:47:03 Coronary atherosc lerosis 666249596 Active 2019 DAYSI DEMARCO MD Attn: Accounting, [address] [facility], [place], [address], [place] - [facility] 5 09:09:46 Hernia of abdomina l cavity 95417822 Active 2022 DAYSI DEMARCO MD Attn: Accounting, [address] [facility], [place], [address], [facility] - SI 5 19:47:03 [facility] hyperten guerita 53657207 Active 2022 DAYSI DEMARCO MD Attn: Accounting, [address] [facility], [place], [address], [facility] - SI 5 09:09:14 History of nicotine dependen ce Active 2019 DAYSI DEMARCO MD Attn: Accounting, [address] [facility], [place], [address], [facility] 5 09:09:43 Problem Notes None recorded. Medical [...] Not Available Not Available No t Available [employer] PointTouch Ultra Test strips USE 1 STRIP ONCE [...] Updated DateTime 5 182.88 cm 23 kg/m2 25149.8 6 g 97.5 [degF] 96 % 96 % 88 /min 113 mm[Hg] 74 mm[Hg] Ty'Jionna YOGI Ingram [facility] S[facility] 5 15:29:02 Date Recorded Body height Body temperature Body mass index (BMI) Body weight Oxygen saturation Oxygen saturation in Arterial blood by Pulse oximetry Heart rate Systolic blood pressure Diastolic blood pressure Provider Name and Address Organization Details Last Updated DateTime 5 182.88 cm 97.9 [degF] 21.7 kg/m2 33563.5 3 g 97 % 97 % 81 /min 103 mm[Hg] 67 mm[Hg] Jaki Morillo MA [facility] SI 5 14:58:42 Date Recorded Body height Body mass index (BMI) Body weight Body temperature Oxygen saturation Oxygen saturation in Arterial blood by Pulse oximetry Heart rate Systolic blood pressure Diastolic blood pressure Provider Name and Address Organization Details Last Updated DateTime 4 182.88 cm 23.1 kg/m2 90004.7 5 g 97.5 [degF] 97 % 97 % 90 /min 113 mm[Hg] 75 mm[Hg] Marisa Hui MA [facility] SI 4 16:35:48 Social History Question Answer Notes LastModified by Magix ion Details LastModified Time Tobacco Smoking Status Former Smoker Jaki Morillo MA null, [facility] 12/21/2024 14:56:13 What Was The Date Of Your Most Recent Tobacco Screening? 12/21/2024 [email or web address] Information not available 12/21/2024 How Much Tobacco Do You Smoke? 1 PPD Information not available 04/09/2024 Has Tobacco Cessation Counseling Been Provided? No Information not available 04/09/2024 Sex: Unknown Functional Status Question Answer Note LastModified by Reduxizat ion Details LastModified Time Do you use [...] Details Recorded Time Pneumococcal conjugate PCV20, polysaccharide XAS218 conjugate, adjuvant, PF 5 completed [place] [facility] 12/21/2024 16:04:02 Tdap 5 completed [place] [facility] 12/21/2024 16:04:02 Past Encounters Encounter ID Performer Location Encounter Start Date Encounter Closed Date Diagnosis/Indication Diagnosis SNOMED-CT Code Diagnosis ICD10 Code Diagnosis Note [id number] Cassandra Mello MD [facility] [address] [facility] [address] [place] [address] 04/09/2024 16:10:06 04/14/2024 15:10:46 Heart failure with reduced ejection fraction 077001517 I50.9 Chronic. Most recent echo with EF [...] ly monitor Type 2 francisco betes mellitus 84059320 E11.9 Chronic. Previous A1c of 12.3. 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 Pt states that [...] needed Screening for malignant neoplasm of colon 149709586 Z12.11 No hx of colonoscop y. Pt [...] Screening for malignant neoplasm of respiratory tract 985143645 Z12.2 Current smoker. 43 pack year smoking hx- Due for LDCT scan Smoker 73158509 F17.200 Current smoker, 1 PPD for the [...] discuss at f/u appointmen t Essential hypertension 23543785 I10 Chronic. Controlled . BP in office [...] Acute non- ST segment elevation myocardial infarction 341491166 I21.4 Recently hospitaliz ed, admitted for NSTEMI- LHC revealed 50% stenosis LCFx, 100% OM (occluded stent) s/p PTCA (ballon) to OM.- Continue DAPT, beta seble, statin- F/u with cardiology on 04/28 [id number] Jez Bai MD [facility] [address] [facility] [address] [place] [address] 11/02/2024 15:15:41 11/06/2024 10:20:57 Heart failure with reduced ejection fraction 656415340 I50.9 Chronic. Most recent echo (06/29/24) with [...] Patient to complete records request Essential hypertension 56760481 I10 Chronic. Controlled . BP in office [...] lipid panel Type 2 francisco betes mellitus 15188586 E11.9 Chronic. Previous A1c of 12.3. A1c [...] control. Mixed anxi ety and depressive disorder 023551647 F41.8 Chronic. Pt is working again and mood is stable on sertraline .- Perform BECKY/PHQ9 next visit Smoker 68215894 F17.200 Current smoker, 1/2-3/4 PPD for the [...] cancer Screening for malignant neoplasm of colon 357066917 Z12.11 No hx of colonoscop y. Pt does state that he has a hx of colon removal 2/2 to diverticul itis in 2003- Denies unintentio nal weight loss, hematochez ia, melena, or change in stool caliber- Pt agreeable to colonoscop y, GI referral placed Screening for malignant neoplasm of respiratory tract 828334400 Z12.2 Current smoker. 43 pack year smoking hx.- Father with h/o lung cancer- Due for baseline/s creening LDCT scan, pt agreeable and stated he would seek treatment if indicated Fatigue 18640350 R53.83 Patient has chronic fatigue since his NSTEMI in February 2024. Seems unrelated to how much sleep he gets. He does have restlessne ss at night, has not tried anything for sleep.- Recommende d Melatonin OTC for sleep- Check TSH, CBC- f/u in 2-4 weeks to go over labs, discuss fatigue [id number] Jez Bai MD [facility] [address] [facility] [address] [place] [address] 12/21/2024 14:41:23 12/30/2024 12:33:03 Heart failure with reduced ejection fraction 316811496 I50.9 Chronic. Most recent echo (06/29/24) with [...] Patient to complete records request Essential hypertension 03184783 I10 Chronic. Controlled . BP in office [...] Labs: none Type 2 francisco betes mellitus 68173034 E11.9 Chronic. Previous A1c of 10.1. Had [...] need additional medication s for control. Fatigue 61620591 R53.83 Patient has chronic fatigue since his NSTEMI in February 2024. Seems unrelated to how much sleep he gets. He does have restlessne ss at night, has not tried anything for sleep.- Recommende d Melatonin OTC for sleep- TSH, CBC in September 2024 were normal- Check vitamin D, B12, folate, iron panel Smoker 61455841 F17.200 Former smoker, quit end of October/be ginning of November. 1/2-3/4 PPD for the last 6 months. Had quit previously for 2-3 years. Prior to that, smoked 1 PPD for 43 years. 43 pack year smoking hx.- Due for LDCT scan- Has tried nicotine patches, Zyn nicotine replacemen t Mixed anxi ety and depressive disorder 421268359 F41.8 Chronic. Pt is working again and mood is stable on sertraline .- PHQ score: 5- BECKY score: 4 Active or passive immunization 279263979 Z23 Health Concerns Section Related Observation LastModified by Organization Detai ls LastModified Time None Recorded Concern Status LastModified by Organization Details LastModified Time None Recorded Advance Directives Directive None Recorded Payers Insurance Date Sequence Insurance Name Policy Number Policy Hernandez Covered Member ID Hernandez Member ID Guarantor Name 12/30/2024 1 [employer] [place] - DOS ON OR AFTER 2020 (MEDICAID REPLACEMENT - HMO) Gianni Bob [id number] Gianni Bob 11/02/2024 1 [place] Gianni Bob [id number] Gianni Bob 11/02/2024 1 [facility] (O) [place] Gianni Bob [id number] Gianni Bob 04/09/2024 1 *SELF PAY* Michel Bob Notes Date Note Type Note Provider Name and Address Organization Details Recorded Time 04/09/2024 text/html 58 yo; PMHx of C AD, HTN, HLD, and T2DM; presenting for establishment of care. Hospitalized 02/13 - 02/16Admitted for NSTEMI, stent placedStarted medication for HFrEF and DAPTInstructed to f/u with cardiology as outpatient Jez Bai MD Attn: Accounting,[address] [facility], [place], [address] 04/14/2024 11:42:14 11/02/2024 text/html Gianni Bob is a 59yo M with PMH of HFrEF, NSTEMI (2023), CAD, HTN, HLD, and T2DM, presenting to clinic for hospital follow-up. Recently hospitalized for SOB a couple weeks before [place]. No records on file, states he was admitted at [facility] Back to normalcy, except more [...] swelling. Jez Bai MD Attn: Accounting,[address] [facility], [place], [address], [facility] 11/05/2024 18:38:56 12/21/2024 text/html Gianni Bob is [...] swelling. Jez Bai MD Attn: Accounting,[address] [facility], [place], [address], [facility] 12/24/2024 11:32:49
--- OUTSIDE RECORDS SUMMARY | 2025-04-21 12:04 | XMS_ITS | Patient Health Record ---
Author Organization [facility] Address [address] [place] [address] Care Team Providers Care Apartment Maintenance Technician Name Role Phone JEANETTE MCNEILL Primary Care Provider [phone] Allergies No Known Allergies Reason For Referral No Information Medications Medication SIG (Take, Route, Frequency, Duration) Notes Start Date End Date Status Atorvastatin Calcium 20 MG 1 tablet every evening Orally Once a day; Duration: 90 days Active Tresiba FlexTouch 100 UNIT/ML inject 25 units Subcutaneous once a day; Duration: 90 days 06/12/2022 Active Clopidogrel Bisulfate 75 MG 1 tablet Orally Once a day Active Carvedilol 3.125 MG 1 tablet with food Orally Twice a day Active OneTouch Delica Lancets Fine use one lancet in vitro once a day; Duration: 100 days 06/06/2022 Active OneTouch Delica Plus Dmocka35U - TESTS TWICE DAILY; Duration: 30 Active metFORMIN HCl 500 MG 1 tablet with meals Orally Twice a day; Duration: 90 days 05/18/2021 Active Lisinopril 10 MG 1 tablet Orally Once a day; Duration: 90 days Active Aspirin EC 81 MG 1 tablet Orally Once a day Active OneTouch Ultra Test 1 In Vitro daily; Duration: 90 days 12/20/2017 Active BD Pen Needle Micro U/F 32G X 6 MM use 1 every day subcutaneously; Duration: 90 days Active OneTouch Ultra 2 w/Device as directed 12/20/2017 Not-Taking Immunizations Vaccine Route Administration Date Status Comme nts Pneumococcal polysaccharide PPV23 IM Intramuscular 08/11/2015 Administered Influenza (split), 3 yrs and above IM Intramuscular 08/11/2015 Administered Social History Tobacco use other than smoking: Question Answer Notes Are you an other tobacco user? No Problems Problem Type SNOMED Code ICD Code Onset Dates Problem Status W/U Status Risk Notes Problem Presbyopia (77938722) Presbyopia (H52.4) Active confirmed Problem Essential hypertension (41859942) Essential (primary) hypertension (I10) Active confirmed Problem Diabetic cataract associated with type II diabetes mellitus (346983287) Type 2 diabetes mellitus with diabetic cataract (E11.36) Active confirmed Problem Hyperglycemia due to type 2 diabetes mellitus (457530426984631) Type 2 diabetes mellitus with hyperglycemia (E11.65) Active confirmed Problem Posterior subcapsular polar senile cataract (7432188) Posterior subcapsular polar age-related cataract, bilateral (H25.043) Active confirmed Problem Nuclear senile cataract (105458803) Age-related nuclear cataract, bilateral (H25.13) Active confirmed Problem Hypermetropia (73017692) Hypermetropia, left eye (H52.02) Active confirmed Problem Myopia (33723417) Myopia, right eye (H52.11) Active confirmed Problem Regular astigmatism (97966196) Regular astigmatism, bilateral (H52.223) Active confirmed Problem Fatty liver (497199703) Fatty (change of) liver, not elsewhere classified (K76.0) Active confirmed Problem Problem, abnormal examination (35893079) Encounter for general adult medical examination with abnormal findings (Z00.01) Active confirmed Problem Screening for malignant neoplasm of colon (962597002) Encounter for screening for malignant neoplasm of colon (Z12.11) Active confirmed Problem Dietary management surveillance (666225704) Dietary counseling and surveillance (Z71.3) Active confirmed Problem Noncompliance: dietary regimen (947009874) Patient's noncompliance with dietary regimen (Z91.11) Active confirmed Problem Noncompliance with medication regimen (finding) (737456819) Patient's other noncompliance with medication regimen (Z91.14) Active confirmed Problem Diabetes mellitus (20130693) Diabetes mellitus (E11.9) Active confirmed Problem Diverticular disease (398815418) Diverticular disease (K57.90) Active confirmed Problem Postoperative ileus (121350111) Postoperative ileus (K91.3) Active confirmed Problem Hyponatremia (88424560) Hyponatremia (E87.1) Active confirmed Problem Incarcerated hernia (841414131) Incarcerated hernia (K46.0) Active confirmed Problem Small bowel obstruction (448547915) Small bowel obstruction (K56.69) Active confirmed Problem Anxiety disorder (615922736) Mixed anxiety depressive disorder (F41.8) Active confirmed Problem Major depressive disorder (307519177) Major depressive disorder (F32.9) Active confirmed Problem Paronychia (73469082) Paronychia (L03.019) Active confirmed Problem Anemia (536345771) Anemia (D64.9) Active confir med Problem Gastrointestinal hemorrhage (79023632) Lower gastrointestinal bleed (K92.2) Active confirmed Problem Long-term current use of insulin (937978604) 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) Active confirmed Problem Polyneuropathy due to type 2 diabetes mellitus (096209216) 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.42) Active confirmed Problem Atherosclerotic heart disease of [place] coronary artery without angina pectoris (977157373383579) CAD in [place] artery (I25.10) Active confirmed Problem Right inguinal hernia (157622385) Right inguinal hernia (K40.90) Active confirmed Problem Impotence of organic origin (N52.9) Active confirmed Problem Old myocardial infarction (6823374) History of [place] (myocardial infarction) (I25.2) Active confirmed Problem Noncompliance with dietary regimen (finding) (464175549) Dietary noncompliance (Z91.11) Active confirmed Problem Strain of right trapezius muscle (71389232043719097) Strain of right trapezius muscle (S46.811A) Active confirmed Problem Impotence due to erectile dysfunction (N52.9) Active [...] Insured Coverage Start Date Coverage End Date [facility] [address] [place], [place] [id number] TA MARIN Self - patient is the insured 0 Medical (General) History Medical History History ICD Code Diabetes mellitus - [facility] - 08/21/2021 - A1c 8.6 ; 05/15/2021 - A1c 10.4 ; 08/18/2020 - A1c 9.1 ; 12/20/2017 - A1c 7.3 ; A1c 10.1 08/20/15, A1c 5.6 04/19/15 (E11.9) Type 2 diabetes mellitus with hyperglyce stu (E11.65) Type 2 diabetes mellitus with diabetic c ataract (E11.36) Hyponatremia - [facility] - Sodium 138 08/20/15, Sodium 135 09/01/12 08/21/12 (E87.1) Fatty liver (CT scan on 07/22 11/01) - [facility] 08/12/12 - Bilirubin 0.3/Ca+ 9.3 08/20/15, Bilirubin 0.3/Ca+ 9.5 09/01/12 (K76.0) Diverticular disease - Colon scopy [facility] 12/13/03 (K57.90) Postoperative ileus - [facility] 08/21/12 (K91.3) Incarcerated hernia - [facility] 08/12/12 (K46.0) Small bowel obstruction, rec urrent - [facility] 08/10/12 (K56.69) Mixed anxiety depressive dis order - [facility] 08/10/12 (F41.8) Major depressive disorder - [facility] 08/10/12 (F32.9) Paronychia - [facility] 12/19/03 (L03.019) Anemia - [facility] 16/02 (D64.9) Lower gastrointestinal bleed - [facility] 12/19/03 (K92.2) Posterior subcapsular polar age-related cataract, bilateral - #18 [facility] 10/10/15 (H25.043) Age-related nuclear cataract , bilateral - #18 [facility] 07/30/15 (H25.13) Myopia, right eye - #[address] [facility] 07/30/15 (H52.11) Hypermetropia, left eye - #18 [facility] 07/30/15 (H52.02) Regular astigmatism, bilateral - #18 [facility] 07/30/15 (H52.223) Presbyopia - #18 [facility] 08/04 (H52.4) Essential (primary) hypertension [...]
[2025-04-21 12:15] VITALS: BP 113/82; PULSE 85; RESP 18; TEMP 36.6; O2SAT 99
--- OUTSIDE RECORDS SUMMARY | 2025-04-21 12:51 | XMS_ITS | Clinical Summary ---
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
--- OUTSIDE RECORDS SUMMARY | 2025-04-21 12:51 | XMS_ITS | Clinical Summary ---
Author Organization [facility] Address [address] [place] [address] Care Team Providers Care Multiple Sclerosis Nurse Name Role Phone None, Provider MD Primary Care Provider Unavaila ble Allergies No known active allergies Medications atorvastatin (LIPITOR) 80 MG tablet Take 1 tablet (80 mg total) by mouth nightly at bedtime. Active metFORMIN (GLUCOPHAGE) 500 MG tablet Take 1 tablet (500 mg total) by mouth 2 (two) times daily with meals. Active calcium carbonate (TUMS) 500 MG chewable tablet Chew 1 tablet (500 mg total) by mouth 2 (two) times daily as needed. 60 tablet 4 Active JARDIANCE 25 MG tablet Take 1 tablet (25 mg total) by mouth daily. 4 Active sertraline (ZOLOFT) 50 MG tablet Take 1 tablet (50 mg total) by mouth daily. 4 Active Insulin Glargine-yfgn 100 UNIT/ML Solution Pen-injector INJECT 10 UNITS SUBCUTANEOUSLY ONCE DAILY AT BEDTIME 4 Active carvedilol (COREG) 3.125 MG tablet Take 1 tablet (3.125 mg total) by mouth 2 (two) times daily with meals. NEW DOSE 04/28/2024 OV 60 tablet 11 4 Active ticagrelor (BRILINTA) 90 mg tablet Take 1 tablet (90 mg total) by mouth 2 (two) times daily. 60 tablet 11 4 Active losartan (COZAAR) 25 MG tablet Take 0.5 tablets (12.5 mg total) by mouth daily. 30 tablet 4 Active aspirin 81 MG chewable tablet Chew 1 tablet (81 mg total) by mouth daily. 30 tablet 4 Active Active Problems Problem Noted Date Diagnosed Date Acute respiratory failure wi th hypoxia and hypercarbia ([facility]) 09/30/2024 STEMI (ST elevation myocardi al infarction) ([facility]) 03/31/2024 NSTEMI (non-ST elevated myoc ardial infarction) ([facility]) 02/15/2024 Small bowel obstruction ([facility]) 2022 Anemia 03/19/2023 Anxiety disorder 03/19/2023 Diabetic cataract, associate d with type 2 diabetes mellitus ([facility]) 03/19/2023 Diverticular disease 03/19/2023 Fatty liver 03/19/2023 Gastrointestinal hemorrhage 03/19/2023 Essential hypertension 03/19/2023 Hyperglycemia due to type 2 diabetes mellitus (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) 03/19/2023 Postoperative ileus ([facility]) 03/19/2023 Presbyopia 03/19/2023 Regular astigmatism 03/19/2023 Right inguinal hernia 03/19/2023 Dietary counseling and surveillance 03/19/2023 Strain of right trapezius muscle 03/19/2023 Personal history of nicotine dependence 09/21/20 20 Fatigue 09/14/2020 Insomnia 09/14/[address] elevation myocardia l infarction (STEMI) ([facility]) 08/24/2020 Atherosclerotic heart diseas e of [place] coronary artery without angina pectoris 08/24/2020 Cardiomyopathy ([facility]) 08/24/2020 Diabetes mellitus ([facility]) 08/24/2020 Dyslipidemia 08/24/2020 Heart failure, unspecified ([facility]) 01/2020 Resolved Problems Problem Noted Date Diagnosed Date Resolved Date Atherosclerotic heart diseas e of [place] coronary artery without angina pectoris 03/19/2023 08/23/2024 Screening for malignant neoplasm of colon 03/19/2023 03/25/2023 Encounters Date Type Department Care Team Description 03/04/2025 6:42 PM CDT - 03/04/2025 9:42 PM CDT Emergency [facility] [place] [address] Zakiya Marks PA Knee Pain; Hand Pain Discharge Disposition: Home or Self Care (Routine Discharge) 03/04/2025 Travel from Last 3 Months Family History Medical History Relation Comments Mental Health Brother Autism Daughter Diabetes Father Diverticulitis Father Heart Disease Father Hypertension Father Cancer Mother sinus tumor Diabetes Mother Diabetes Sister Mental Health Son Stroke Son Relation Status Comments Brother Daughter Father Mother Sister Son Social History Tobacco Use Types Packs/Day Years Used Date Smoking Tobacco: Former Cigarettes Q uit: 2021 Smokeless Tobacco: Never Tobacco Cessation:Counseling Given: Not Answered Alcohol Use Standard Drinks/Week Comments Not Currently 0 (1 standard drink = 0.6 oz pur e alcohol) [facility] Utilities Answer Date Recorded In the past 12 months has e [employer], gas, oil, or water [employer] threatened to shut off services in your home? Patient unable to answer 09/30/2024 Humiliation, Afraid, Rape, a nd Kick questionnaire Answer Date Recorded Within the last year, have y ou been afraid of your partner or ex-partner? Patient unable to answer 09/30/2024 Within the last year, have y ou been humiliated or emotionally abused in other ways by your partner or ex-partner? Patient unable to answer 09/30/2024 Within the last year, have y ou been kicked, hit, slapped, or otherwise physically hurt by your partner or ex-partner? Patient unable to answer 09/30/2024 Within the last year, have y ou been raped or forced to have any kind of sexual activity by your partner or ex-partner? Patient unable to answer 09/30/2024 Overall Financial Resource Strain (CARDIA) Answe r Date Recorded How hard is it for you to pa y for the very basics like food, housing, medical care, and heating? Patient unable to answer 09/30/2024 Hunger Vital Sign Answer Date Recorded Within the past 12 months, y ou worried that your food would run out before you got the money to buy more. Patient unable to answer 09/30/2024 Within the past 12 months, t he food you bought just didn't last and you didn't have money to get more. Patient unable to answer 09/30/2024 PRAPARE - Transportation Answer Date Re corded In the past 12 months, has l ack of transportation kept you from medical appointments or from getting medications? Patient unable to answer 09/30/2024 In the past 12 months, has l ack of transportation kept you from meetings, work, or from getting things needed for daily living? Patient unable to answer 09/30/2024 Housing Stability Vital Sign Answer David e Recorded In the last 12 months, was t here a time when you were not able to pay the mortgage or rent on time? No 03/19/2023 In the last 12 months, how many places have you lived? 1 03/19/2023 In the last 12 months, was t here a time when you did not have a steady place to sleep or slept in a senior care (including now)? No 03/19/2023 Housing Stability Vital Sign Answer David e Recorded In the last 12 months, was t here a time when you were not able to pay the mortgage or rent on time? Patient unable to answer 09/30/2024 In the past 12 months, how m any times have you moved where you were living? 1 09/30/2024 At any time in the past 12 m [facility], were you homeless or living in a senior care (including now)? Patient unable to answer 09/30/2024 Sex and Gender Information Value Date Recorded Sex Assigned at Male 03/04/2025 6:23 PM CDT Legal Sex Male 6:18 AM CDT Gender Identity Not on file Sexual Orientation Not on file Last Filed Vital Signs Vital Sign Reading Time Taken Comments Blood Pressure 107/68 03/04/2025 9:13 PM CDT Pulse 84 03/04/2025 9:13 PM CDT Temperature 36.9 C (98.5 F) 03/04/2025 6:12 PM CDT Respiratory Rate 18 03/04/2025 9:13 PM CDT Oxygen Saturation 100% 03/04/2025 9:13 PM CDT Inhaled Oxygen Concentration - - Weight 72.2 kg (159 lb 2.8 oz) 03/04/2025 6:12 P M CDT Height 182.9 cm (6') 03/04/2025 6:12 PM CDT Body Mass Index 21.59 03/04/2025 6:12 PM CDT Plan of Treatment Health Maintenance Due Date Last Done Comments Kidney Health Evaluation 1965 Annual Physical 1968 Diabetes: Retinopathy Eye Exam 1983 Hepatitis C 1983 Zoster Vaccines (1 of 2) 2015 Colorectal Cancer Screening FIT/FOBT (1 Year) 03/19/2024 03/19/2023 COVID-19 Vaccine (3 - 2023-2 5 season) 2024 05/07/2021, 04/03/2021 Hemoglobin A1C 07/02/2024 04/01/2024, 02/14/2024 ASCVD LDL 04/01/2025 04/01/2024, 02/15/2024 Lipid Panel 04/01/2025 04/01/2024, 02/15/2024 DTaP, Tdap and Td Vaccines ( 2 - Td or Tdap) 12/21/2034 12/21/2024 Pneumococcal Vaccine: 50+ Years Completed 12/21/2024, 08/11/2015 Meningococcal B Vaccine Aged Out No l onger eligible based on patient's age to complete this topic Meningococcal Vaccine Aged Out No shiva lise eligible based on patient's age to complete this topic RSV Immunizations Under 20 Months Aged Out No longer eligible b ased on patient's age to complete this topic Goals Goal Patient Goal Type Associated Problems Recent Progress Patient-Stated? Author Health - patient able to perform ADLs independently Lifestyle No Maricruz Aleman, business law instructor Procedure Name Priority Date/Time Associated Diagnosis Comments XR KNEE RT 3V STAT 03/04/2025 6:55 PM CDT LIPID PANEL Routine 04/01/2024 6:53 AM CDT HEMOGLOBIN, GLYCOSYLATED Routine 04/01/2024 6:53 AM CDT OCCULT BLOOD, FECES STAT 03/19/2023 6 :36 AM CDT from Last 3 Months or Most Recently Relevant to Health Maintenance Results * XR KNEE RT 3V (03/04/2025 6:55 PM CDT) Anatomical Region Laterality Modality Knee Radiographic Kiarra ging 03/04/2025 7:35 PM CDT Impressions 03/04/2025 7:39 PM CDT IMPRESSION: No acute osseous abnormality. Referred By: Interpreted By: Jimy Matos MD, 03/04/2025 7:35 PM Narrative 03/04/2025 7:39 PM CDT [place] [id number] EXAMINATION: XR KNEE RT 3V HISTORY: Pain DATE: 03/04/2025 6:41 PM COMPARISON: None TECHNIQUE: AP, lateral and oblique views of the right knee. 3 images. FINDINGS: No acute fracture or dislocation. Trace amount of joint fluid. Mild degenerative change. Arterial calcifications are noted. Procedure Note Jimy Matos MD - 03/04/2025 [place] [address] EXAMINATION: XR KNEE RT 3V HISTORY: Pain DATE: 03/04/2025 6:41 PM COMPARISON: None TECHNIQUE: AP, lateral and oblique views of the right knee. 3 images. FINDINGS: No acute fracture or dislocation. Trace amount of joint fluid.Mild degenerative change. Arterial calcifications are noted. IMPRESSION: No acute osseous abnormality. Referred By: Interpreted By: Jimy Matos MD, 03/04/2025 7:35 PM us [facility] Final Result * (ABNORMAL) HEMOGLOBIN, GLYCOSYLATED (04/01/2024 6:53 AM CDT) HGB A1C 12.6(H) <5.7 % 04/01/2024 10:[address] [facility] Comment: ADA GUIDELINES 2010 5.7 TO 6.4% INCREASED RISK OF DIABETES > OR = 6.5% CONSISTENT WITH DIABETES ESTIMATED AVG GLUCOSE 315 mg/dL 04/01/2024 10:[address] [facility] 04/01/2024 6:53 AM CDT us rJ Yo DO LABORATORY Final Result [facility] [address] [place] [address], [place] [phone] * (ABNORMAL) LIPID PANEL (04/01/2024 6:53 AM CDT) CHOLESTEROL 154 <200 MG/DL 04/01/2024 7:[address] [facility] TRIGLYCERIDES 191(H) <150 MG/DL 04/01/2024 7:[address] [facility] HDL 30(L) >40.0 MG/DL 04/01/2024 7:[address] [facility] LDL (CALCULATED) 86 <100 MG/DL 04/01/2024 7:[address] [facility] NON HDL CHOLESTEROL 124 <130 MG/DL 04/01/2024 7:[address] [facility] CHOL/HDL RATIO 5.1(H) 0.0 - 4.5 04/01/2024 7:[address] [facility] VLDL CALCULATION 38 5 - 55 MG/DL 04/01/2024 7:[address] [facility] LIPID INTERPRETATION 04/01/2024 7:[address] [facility] Comment: NIH CONCENSUS REPORT RECOMMENDATIONS: ADULT CHILD LOW RISK: CHOLESTEROL <200 <170 TRIGLYCERIDE <150 --- HDL >=60 --- LDL <100 <110 BORDERLINE: CHOLESTEROL 200-239 170-199 TRIGLYCERIDE 150-199 --- HDL 40-59 --- LDL 100-159 110-129 HIGH RISK: CHOLESTEROL >=240 >=200 TRIGLYCERIDE >=200 --- HDL <40 --- LDL >=160 >=130 04/01/2024 6:53 AM CDT Jr Yo DO LABORATORY Final Result [facility] [address] [place] [address], [place] [phone] * OCCULT BLOOD, FECES (03/19/2023 6:36 AM CDT) OCCULT BLOOD FECAL NEGATIVE 03/19/2023 6:[address] [facility] STOOL SPECIMEN / Unknown 03/19/2023 6:36 AM CDT Hieu Rai MD BODY FLUIDS AND STOOLS ORDERAB LES Final Result [facility] [address] [place] [id number], [place] [phone] from Last 3 Months or Most Recently Relevant to Health Maintenance Insurance [facility] Advance Directives * Full Code (Latest Code Status on File) Date Activated Date Inactivated Comments 09/30/2024 5:04 AM 10/03/2024 3:14 PM * Full Code Date Activated Date Inactivated Comments 03/31/2024 6:24 PM 04/02/2024 11:50 PM * Full Code Date Activated Date Inactivated Comments 02/15/2024 10:32 AM 02/17/2024 7:08 PM * Full Code Date Activated Date Inactivated Comments 02/15/2024 2:25 AM 02/15/2024 10:32 AM * Full Code Date Activated Date Inactivated Comments 03/19/2023 9:41 AM 03/20/2023 12:56 PM Care Teams Multiple Sclerosis Nurse Relationship Specialty Start Date End Date None, Provider, MD PCP - General UNKNOWN PHYSICIAN SPECIALTY 09/27/24
--- NOTE | 2025-04-21 13:56 | ED_ITS ---
HPI - Skin/Abscess/Foreign Bdy General Chief complaint: Skin/Abscess/Foreign Body Stated complaint: possible cellulitis in the R hand and L ankle Time Seen by Provider: 04/21/25 12:28 History of Present Illness HPI narrative: Patient is a 59-year-old male who presents ER with pain to the right wrist. Began last night. Red and warm. No known trauma or overuse. 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 Reports he had something similar on the left side in last month was treated for cellulitis. He is concerned return. Also notes some swelling to the left ankle but is unsure if it is new and he has no pain. No history of gout. No alcohol use or ingestion smoked meats. Related Data Allergies Allergy/AdvReac Type Severity Reaction Status Date / Time No Known Allergies Allergy Verified 04/21/25 12:24 Review of Systems Constitutional: Constitutional: Reports no additional constitutional complaints Musculoskeletal: Musculoskeletal: Reports no additional musculoskeletal complaints Integumentary/Breasts: Skin/Breast: Denies pruritus, Reports erythema, Denies rash and Denies skin ulcer Neurologic: Reports system reviewed and no additional complaints, except as documented Exam Narrative: GENERAL: Well-appearing, well-nourished, and in no acute distress. HEAD: Normocephalic, atraumatic. ENT: Mucous membranes moist. HEART: Regular rate and rhythm. Normal peripheral pulses. EXTREMITIES: Normal range of motion and strength of the right wrist with slight edema and erythema. No significant tenderness. SKIN: Warm, dry, no rash. NEURO: Alert and oriented x3. PSYCH: Normal mood and affect. Course Course Emergency Course: Arthritis versus early cellulitis. Will place on oral antibiotic and provide Jack wrap. Vital Signs Vital signs: Vital Signs Temperature 97.8 F 04/21/25 12:15 Pulse Rate 85 04/21/25 12:15 Respiratory Rate 18 04/21/25 12:15 Blood Pressure 113/82 04/21/25 12:15 Pulse Oximetry 99 04/21/25 12:15 Oxygen Delivery Room Air 04/21/25 12:15 Temperature 97.8 F 04/21/25 12:15 Pulse Rate 85 04/21/25 12:15 Respiratory Rate 18 04/21/25 12:15 Blood Pressure 113/82 04/21/25 12:15 Pulse Oximetry 99 04/21/25 12:15 Oxygen Delivery Room Air 04/21/25 12:15 Discharge Plan Discharge Clinical Impression: Cellulitis Patient Disposition: Home Condition: Stable Instructions: Antibiotic Form, Cellulitis (ED) Additional Instructions: Direct is may be related to skin infection or inflammation of your wrist joint. Take anti-inflammatories and antibiotics to treat your discomfort. Return to the ER if you have additional concerns. Patient Language: Greenlandic Prescriptions: New naproxen 375 mg tablet 375 mg PO BID Qty: 14 0RF cephalexin 500 mg capsule 500 mg PO Q12H Qty: 14 0RF No Action cephalexin 500 mg capsule 500 mg PO Q12H 7 Days Qty: 14 0RF Follow-up/Referrals: UNKNOWN,DOCTOR [Primary Care Provider] - 1 Week
[2025-04-21 14:17] VITALS: BP 112/77; PULSE 76; RESP 15; TEMP 36.5; O2SAT 98
== END 2025-04-21 14:18 | disposition home or self-care (01) ==
PROVIDERS: Emergency Provider Emergency Medicine
DX: L03.113 Cellulitis of right upper limb (principal)
CPT/HCPCS: 73110; 99283